=== PATIENT | male | born 1950 | race Caucasian/White ===

== ENCOUNTER 2019-12-18 13:54 | Emergency (ER) | payer MEDICARE ==
--- OUTSIDE RECORDS SUMMARY | 2019-12-18 13:58 | XMS REPORT | Continuity of Care Document ---
:1950 Author Organization [facility] Address [address] [place] [address] Dr. Jimenez [address] [place] [id number] Care Team Providers Name Role Phone Unavailable Unavailable Unavailable Problems This patient has no known problems. Allergies, Adverse Reactions, Alerts This patient has no known allergies or adverse reactions. Medications This patient has no known medications. Procedures This patient has no known procedures. Encounters Start End Encounter Admission Attending Care Care Encounter Source Date/Time Date/Time Type Type Clinicians Facility Department ID 2019-10-20 2019-10-20 Outpatient [facility] [id number] [facility] 08:45:00 08:45:00 2019-07-07 2019-07-07 Outpatient [facility] [id number] [facility] 10:04:00 10:04:00 2019-05-12 2019-05-12 Outpatient [facility] [id number] [facility] 08:55:00 08:55:00 2019-04-14 2019-04-14 Outpatient MH [facility] [id number] [facility] 08:53:00 08:53:00 2019-03-23 2019-03-23 Outpatient M[facility] [id number] [facility] 14:23:00 14:23:00 2019-03-12 2019-03-12 Outpatient MH MH [id number] [facility] 10:21:00 10:21:00 2019-03-04 2019-03-04 Outpatient [facility] MED [id number] MHH 06:51:00 06:51:00 2019-03-03 2019-03-03 Outpatient M[facility] [id number] [facility] 09:35:00 09:35:00 2019-01-29 2019-01-29 Outpatient MHH [facility] [id number] [facility] 12:00:00 12:00:00 2019-01-20 2019-01-20 Outpatient [facility] M[facility] [id number] MH 13:36:00 13:36:00 2018-12-26 2018-12-26 Outpatient [facility] [id number] 11:20:00 11:20:00 2018-12-04 2018-12-04 Outpatient [facility] [id number] [facility] 15:57:00 15:57:00 Results This patient has no known results.
--- NOTE | 2019-12-18 14:40 | RAD REPORT ---
EXAM DESCRIPTION: CT - Head Brain Wo Cont - 12/18/2019 2:26 pm CLINICAL HISTORY: TRAUMA Syncope, fall, trauma, head injury COMPARISON: No comparisons TECHNIQUE: All CT scans are performed using dose optimization technique as appropriate and may inclu de automated exposure control or mA/KV adjustment according to patient size. FINDINGS: No intracranial hemorrhage, hydrocephalus or extra-axial fluid collection.Advanced general ized brain atrophy is present with advanced periventricular and deep white matter chronic microvascul ar ischemic changes.No areas of brain edema or evidence of midline shift. The paranasal sinuses and mastoids are clear. The calvarium is intact. IMPRESSION: No acute intracranial abnormality.
[2019-12-18 15:15] LABS: ALT/SGPT 19 U/L (12-78); AST/SGOT 28 U/L (15-37); Albumin 2.9 g/dL (3.4-5.0); Alkaline Phosphatase 146 U/L (45-117); BUN Blood Urea Nitrogen 21 mg/dL (7-18); Bicarbonate 22 mmol/L (21-32); Bilirubin Direct 0.3 mg/dL (0-0.2); Bilirubin Total 0.7 mg/dL (0.2-1.0); CKMB Creatine Kinase MB 1.9 ng/mL (0.3-3.6); Creatine Phosphokinase 41 U/L (39-308); Glucose Level 119 mg/dL (74-106); Lipase 103 U/L (73-393); Magnesium 2.2 mg/dL (1.8-2.4); Potassium 4.4 mmol/L (3.5-5.1); Protein, Total 6.7 g/dL (6.4-8.2); Sodium Level 144 mmol/L (136-145); Troponin (Emerg Dept Use Only) < 0.02 ng/mL (0.0-0.045)
--- NOTE | 2019-12-18 15:32 | ER ---
Nurse's Notes [facility] Name: Reji Ford Jr Age: 69 yrs Sex: Male : 1950 Arrival Date: 12/18/2019 Time: 13:56 Bed 4 Private MD: Diagnosis: Fall on same level from slipping, tripping and stumbling Presentation: 12/17 13:58 Chief complaint: EMS states: WITNESSED SYNCOPAL FALL. Coronavirus screen: At this time, bp the client does not indicate any symptoms associated with coronavirus-19. Ebola Screen: No symptoms or risks identified at this time. Initial Sepsis Screen: Does the patient meet any 2 criteria? No. Patient's initial sepsis screen is negative. Does the patient have a suspected source of infection? No. Patient's initial sepsis screen is negative. Risk Assessment: Do you want to hurt yourself or someone else? Patient reports no desire to harm self or others. Onset of symptoms is unknown. Care prior to arrival: Glucose check: 166. 13:58 Method Of Arrival: EMS: [facility] bp 13:58 Acuity: CHEMA 3 bp Triage Assessment: 13:57 General: Appears distressed, comfortable, obese, unkempt, Behavior is cooperative, bp appropriate for age, drowsy. Pain: Denies pain. EENT: No deficits noted. Neuro: Level of Consciousness is awake, alert, obeys commands, lethargic, Oriented to person, place, time, situation, Appropriate for age Reports blurred vision CHRONIC a syncopal episode. Cardiovascular: Rhythm is sinus rhythm. Respiratory: No deficits noted. GI: No signs and/or symptoms were reported involving the gastrointestinal system. : No signs and/or symptoms were reported regarding the genitourinary system. Derm: No deficits noted. Musculoskeletal: No deficits noted. Historical: - Allergies: 13:57 crab meat; bp - Home Meds: 13:57 Furosemide Oral [Active]; Metoprolol Tartrate Oral [Active]; Spironolactone Oral bp [Active]; - PMHx: 13:57 Hepatitis; Hypertension; under eval for CHF; bp - Immunization history:: Adult Immunizations unknown. - Social history:: Smoking status: Patient reports the use of cigarette tobacco products, unknown amount. Screenin:01 Abuse screen: Denies threats or abuse. Denies injuries from another. Nutritional bp screening: No deficits noted. Tuberculosis screening: No symptoms or risk factors identified. Fall Risk None identified. Assessment: 14:01 General: SEE TRIAGE NOTE. Neuro: Level of Consciousness is awake, obeys commands, bp lethargic, Oriented to person, place, time, situation. Cardiovascular: Rhythm is sinus rhythm. 14:50 Reassessment: CT AND LABWORK COMPLETED, RESULTS PENDING. VS STABLE. bp 15:08 Reassessment: PT STATES "I'M NOT GONNA GIVE YOU ANY URINE TO TEST". PROVIDER INFORMED. bp 15:29 Reassessment: PT REFUSING FURTHER HEALTH CARE ACTIVITIES AND REMOVING MONITORING bp DEVICES. PT INSIST ON LEAVING AMA. COUNSELED TO REMAIN BY PROVIDER AND STAFF BUT REFUSED. PT AOx4, AMBULATORY WITH STEADY GAIT AND NO ATAXIA. PT URGED TO RETURN IF S/S RETURN OR WORSEN. Vital Signs: 13:58 BP 127 / 65; Pulse 80; Resp 17; Temp 98.9; Pulse Ox 94% ; bp 14:37 BP 163 / 70; Pulse 58; Resp 16; Pulse Ox 97% ; bp 15:30 BP 112 / 65; Pulse 55; Resp 17; Temp 98.5; Pulse Ox 98% ; bp NIH Stroke Scale Scores: 13:58 NIHSS Score: 2 bp ED Course: 13:56 Patient arrived in ED. bp 13:58 Arm band placed on. bp 14:01 Triage completed. bp 14:01 Patient has correct armband on for positive identification. Bed in low position. Call bp light in reach. Side rails up X2. 14:03 Daria Montano FNP-C is [facility]. kb 14:03 Vin Elliott MD is Attending Physician. kb 14:18 Danilo Pierre, RN is Primary Nurse. em 14:26 CT Head Brain wo Cont In Process Unspecified. EDMS 15:30 No provider procedures requiring assistance completed. Patient did not have IV access bp during this emergency room visit. 15:35 Primary Nurse role handed off by Danilo Pierre, LYLE babb Administered Medications: No medications were administered Outcome: 15:31 AMA AMA form signed bp 15:31 Condition: stable 15:31 Instructed on follow up and referral plans. 15:32 Patient left the ED. bp 15:36 Patient left the ED. holley NIH Stroke Scale - NIH Stroke Score Date: 12/18/2019 Time: 13:58 Total Score = 2 1a. Level of Consciousness (LOC) - 1(Not Alert) 1b. Level of Consciousness (LOC) (Year \\T\\ Age) - 0(Both) 1c. LOC Commands (Open \\T\\ Closes Eyes/Supervisor Grading) - 0(Both) 2. Best Gaze (Lateral Gaze Paresis) - 0(Normal) 3. Visual Field Loss - 0(No visual loss) 4. Facial Palsy - 0(Normal) 5a. Left Arm: Motor (10-second hold) - 0(No drift) 5b. Right Arm: Motor (10-second hold) - 0(No drift) 6a. Left Leg: Motor (5-second hold - always test supine) - 0(No drift) 6b. Right Leg: Motor (5-second hold - always test supine) - 0(No drift) 7. Limb Ataxia (finger/nose \\T\\ heel/madison - test with eyes open) - 0(Absent) 8. Sensory Loss (pinprick arms/legs/face) - 0(Normal) 9. Best Language: Aphasia (description/naming/reading) - 0(No aphasia) 10. Dysarthria (speech clarity - read or repeat words) - 1(Mild to Moderate) 11. Extinction and Inattention (visual/tactile/auditory/spatial/personal) - 0(No abnormality) Initials: bp Signatures: Dispatcher [employer] Daria Banda, SYLVIA-C MACHINIST LINOTYPE-Danilo Gagnon, Herb Brown RN, RN RN bp Corrections: (The following items were deleted from the chart) 14:50 14:37 Pulse 58bpm; Resp 16bpm; Pulse Ox 97%; bp bp
--- NOTE | 2019-12-18 15:37 | EDPHYS ---
Physician Documentation [facility] Name: Reji Ford Jr Age: 69 yrs Sex: Male : 1950 Arrival Date: 12/18/2019 Time: 13:56 Bed 4 Private MD: ED Physician Vin Elliott HPI: 12/17 15:37 This 69 yrs old Male presents to ER via EMS with complaints of Syncope. kb 15:37 Details of fall: The patient fell from an upright position, while walking. Onset: The kb symptoms/episode began/occurred just prior to arrival. Associated injuries: The patient sustained no obvious injury. Severity of symptoms: At their worst the symptoms were mild, in the emergency department the symptoms are unchanged. The patient has not experienced similar symptoms in the past. The patient has not recently seen a physician. Pt states he was walking from the car into the eye dr's office, lost his balance and fell. States he is fine and really doesn't need to be here. I called [employer] and the staff confirms that pt "stumbled out of his car, walked to the door and fell against it, then to the ground." Staff believes pt had LOC for 30-45 seconds "during" the fall. States he was awake when he hit the ground. Pt denies LOC. Pt admits to taking oxycontin today, refuses UDS. . Historical: - Allergies: 13:57 crab meat; bp - Home Meds: 13:57 Furosemide Oral [Active]; Metoprolol Tartrate Oral [Active]; Spironolactone Oral bp [Active]; - PMHx: 13:57 Hepatitis; Hypertension; under eval for CHF; bp - Immunization history:: Adult Immunizations unknown. - Social history:: Smoking status: Patient reports the use of cigarette tobacco products, unknown amount. ROS: 15:33 Constitutional: Negative for fever, chills, and weight loss, Eyes: Negative for injury, kb pain, redness, and discharge, ENT: Negative for injury, pain, and discharge, Neck: Negative for injury, pain, and swelling, Cardiovascular: Negative for chest pain, palpitations, and edema, Respiratory: Negative for shortness of breath, cough, wheezing, and pleuritic chest pain, Abdomen/GI: Negative for abdominal pain, nausea, vomiting, diarrhea, and constipation, Back: Negative for injury and pain, MS/Extremity: Negative for injury and deformity, Skin: Negative for injury, rash, and discoloration, Neuro: Negative for headache, weakness, numbness, tingling, and seizure. Exam: 15:33 Constitutional: This is a well developed, well nourished patient who is awake, alert, kb and in no acute distress. Head/Face: Normocephalic, atraumatic. Chest/axilla: Normal chest wall appearance and motion. Nontender with no deformity. No lesions are appreciated. Cardiovascular: Regular rate and rhythm with a normal S1 and S2. No gallops, murmurs, or rubs. Normal PMI, no JVD. No pulse deficits. Respiratory: Lungs have equal breath sounds bilaterally, clear to auscultation and percussion. No rales, rhonchi or wheezes noted. No increased work of breathing, no retractions or nasal flaring. Abdomen/GI: Soft, non-tender, with normal bowel sounds. No distension or tympany. No guarding or rebound. No evidence of tenderness throughout. Skin: Warm, dry with normal turgor. Normal color with no rashes, no lesions, and no evidence of cellulitis. MS/ Extremity: Pulses equal, no cyanosis. Neurovascular intact. Full, normal range of motion. Neuro: Awake and alert, GCS 15, oriented to person, place, time, and situation. Cranial nerves II-XII grossly intact. Motor strength 5/5 in all extremities. Sensory grossly intact. Cerebellar exam normal. Normal gait. Vital Signs: 13:58 BP 127 / 65; Pulse 80; Resp 17; Temp 98.9; Pulse Ox 94% ; bp 14:37 BP 163 / 70; Pulse 58; Resp 16; Pulse Ox 97% ; bp 15:30 BP 112 / 65; Pulse 55; Resp 17; Temp 98.5; Pulse Ox 98% ; bp NIH Stroke Scale Scores: 13:58 NIHSS Score: 2 bp MDM: 14:03 Patient medically screened. kb 15:33 Data reviewed: vital signs, nurses notes. Data interpreted: Pulse oximetry: on room air kb is 98 %. Interpretation: normal. ED course: Pt refused recollection of blood. States he wanted to leave. Took equipment off himself and got dressed to leave. Pt refuses any more testing and is going home. Pt signed AMA form. Pt ambulatory with steady gait, alert and oriented x4. 12/17 14:15 Order name: Basic Metabolic Panel; Complete Time: 15:16 kb 12/17 14:15 Order name: Ckmb; Complete Time: 15:16 kb 12/17 14:15 Order name: CPK; Complete Time: 15:16 kb 12/17 14:15 Order name: Hepatic Function; Complete Time: 15:16 kb 12/17 14:15 Order name: Lipase; Complete Time: 15:16 kb 12/17 14:12 Order name: CT Head Brain wo Cont; Complete Time: 14:46 kb 12/17 14:15 Order name: Magnesium; Complete Time: 15:16 kb 12/17 14:15 Order name: Troponin (emerg Dept Use Only); Complete Time: 15:16 kb 12/17 14:15 Order name: EKG; Complete Time: 14:16 kb 12/17 14:46 Order name: ETOH Level; Complete Time: 15:33 bp 12/17 14:15 Order name: Cardiac monitoring; Complete Time: 14:18 kb 12/17 14:15 Order name: EKG - Nurse/Tech; Complete Time: 14:18 kb 12/17 14:15 Order name: IV Saline Lock; Complete Time: 14:46 kb 12/17 14:15 Order name: Labs collected and sent; Complete Time: 14:18 kb 12/17 14:15 Order name: NPO; Complete Time: 14:18 kb 12/17 14:15 Order name: O2 Per Protocol; Complete Time: 14:18 kb 12/17 14:15 Order name: O2 Sat Monitoring; Complete Time: 14:18 kb Administered Medications: No medications were administered Disposition: 12/18/19 15:32 Patient has left against medical advice. Impression: Fall on same level from slipping, tripping and stumbling. - Patients states they are going to Home. - Condition is Stable. Follow up: Emergency Department; When: As needed; Reason: Worsening of condition. Follow up: Private Physician; When: 2 - 3 days; Reason: Recheck today's complaints, Continuance of care, Re-evaluation by your physician. - Problem is new. - Symptoms are unchanged. NIH Stroke Scale - NIH Stroke Score Date: 12/18/2019 Time: 13:58 Total Score = 2 1a. Level of Consciousness (LOC) - 1(Not Alert) 1b. Level of Consciousness (LOC) (Year \\T\\ Age) - 0(Both) 1c. LOC Commands (Open \\T\\ Closes Eyes/Circular Head Saw Operator) - 0(Both) 2. Best Gaze (Lateral Gaze Paresis) - 0(Normal) 3. Visual Field Loss - 0(No visual loss) 4. Facial Palsy - 0(Normal) 5a. Left Arm: Motor (10-second hold) - 0(No drift) 5b. Right Arm: Motor (10-second hold) - 0(No drift) 6a. Left Leg: Motor (5-second hold - always test supine) - 0(No drift) 6b. Right Leg: Motor (5-second hold - always test supine) - 0(No drift) 7. Limb Ataxia (finger/nose \\T\\ heel/madison - test with eyes open) - 0(Absent) 8. Sensory Loss (pinprick arms/legs/face) - 0(Normal) 9. Best Language: Aphasia (description/naming/reading) - 0(No aphasia) 10. Dysarthria (speech clarity - read or repeat words) - 1(Mild to Moderate) 11. Extinction and Inattention (visual/tactile/auditory/spatial/personal) - 0(No abnormality) Initials: bp Addendum: 12/21/2019 08:22 Co-signature as Attending Physician, Vin Elliott MD I agree with the kdr assessment and plan of care. Signatures: Dispatcher [employer] EDIA Daria Montano, SEARCH MANAGER-C SEARCH MANAGER-Ckb Vin Elliott MD MD [facility] Herb Ramirez RN RN bp Corrections: (The following items were deleted from the chart) 12/17 15:36 15:32 12/18/2019 15:32 Patients has left against medical advice. Patient states kb they are going to Home. Condition is Stable. bp 15:36 15:36 12/18/2019 15:32 Patients has left against medical advice. Impression: kb Fall on same level from slipping, tripping and stumbling. Patient states they are going to Home. Condition is Stable. Follow up: Emergency Department; When: As needed; Reason: Worsening of condition. Follow up: Private Physician; When: 2 - 3 days; Reason: Recheck today's complaints, Continuance of care, Re-evaluation by your physician. Problem is new. Symptoms are unchanged. kb
[2019-12-18 15:52] VITALS: BP 112/65; TEMP 98.5; O2SAT 98
--- NOTE | 2019-12-19 08:11 | EKG ---
Test Date: 2019-12-18 Test Time: 14:05:15 It Assistant: SRI MEASUREMENT RESULTS: Intervals: Rate: 56 SD: 170 QRSD: 80 QT: 470 QTc: 453 [place]: P: 32 SD: 170 QRS: 10 T: 45 INTERPRETIVE STATEMENTS: Sinus bradycardia Otherwise normal ECG Compared to ECG 05/05/2008 08:33:23 Sinus rhythm no longer present Electronically Signed On 12-19-19 08:09:28 CDT by Eleno Jimenez
== END 2019-12-18 15:36 | disposition left against medical advice (07) ==
LOC: ER 13:54
DX: R55 Syncope and collapse (principal); W01.0XXA Fall on same level from slipping, tripping and stumbling without subsequent striking against object, initial encounter; Y93.9 Activity, unspecified; Y92.9 Unspecified place or not applicable; I10 Essential (primary) hypertension; F17.210 Nicotine dependence, cigarettes, uncomplicated; Z91.018 Allergy to other foods; Z53.29 Procedure and treatment not carried out because of patient's decision for other reasons; R29.702 NIHSS score 2
CPT/HCPCS: 70450; 80048; 80076; 80320; 82550; 82553; 83690; 83735; 84484; 93005; 99284

== ENCOUNTER 2020-12-22 01:08 | Emergency (ER) | payer MEDICARE ==
--- NOTE | 2020-12-22 01:30 | EDPHYS ---
Physician Documentation [facility] Name: Reji Ford Jr Age: 70 yrs Sex: Male : 1950 Arrival Date: 12/22/2020 Time: 01:13 Bed DIS11 Private MD: ED Physician Marilia Pink HPI: 12/22 01:26 This 70 yrs old Male presents to ER via EMS with complaints of alcohol sp3 intoxication. 01:26 10-year-old male with a history of hypertension CHF presents with acute alcohol sp3 intoxication from a local restaurant after drinking "saki". Patient then got into a verbal altercation and attempted to get into his vehicle at which point the police intervened and he was then sent to the ED for further evaluation secondary to his inability to walk presumably secondary to alcohol. Patient states that the police took his cane. Patient has no complaints including headache, neck pain, chest pain, back pain, shortness of breath, abdominal pain, nausea, vomiting, diarrhea, syncope, focal neuro deficit, or any other ROS at this time. Per EMS patient also was slightly hypertensive on scene which also led to his arrival here.. Historical: - Allergies: 01:46 crab meat; em - PMHx: 01:46 Hypertension; under eval for CHF; Hepatitis; cancer; Diabetes mellitus; em - PSHx: 01:46 None; em - Immunization history:: Client reports receiving the 2nd dose of the Covid vaccine. - Social history:: Smoking status: Patient reports the use of cigarette tobacco products, cigars. ROS: 01:28 Constitutional: Negative for fever, chills, and weight loss, Eyes: Negative for injury, sp3 pain, redness, and discharge, Cardiovascular: Negative for chest pain, palpitations, and edema, Respiratory: Negative for shortness of breath, cough, wheezing, and pleuritic chest pain, Abdomen/GI: Negative for abdominal pain, nausea, vomiting, diarrhea, and constipation, MS/Extremity: Negative for injury and deformity, Skin: Negative for injury, rash, and discoloration, Neuro: Negative for headache, weakness, numbness, tingling, and seizure. Exam: 01:28 Constitutional: This is a well developed, well nourished patient who is awake, alert, sp3 and in no acute distress. Head/Face: Normocephalic, atraumatic. Chest/axilla: Normal chest wall appearance and motion. Nontender with no deformity. No lesions are appreciated. Cardiovascular: Regular rate and rhythm with a normal S1 and S2. No gallops, murmurs, or rubs. Normal PMI, no JVD. No pulse deficits. Respiratory: Lungs have equal breath sounds bilaterally, clear to auscultation and percussion. No rales, rhonchi or wheezes noted. No increased work of breathing, no retractions or nasal flaring. Abdomen/GI: Soft, non-tender, with normal bowel sounds. No distension or tympany. No guarding or rebound. No evidence of tenderness throughout. Back: No spinal tenderness. No costovertebral tenderness. Full range of motion. Skin: Warm, dry with normal turgor. Normal color with no rashes, no lesions, and no evidence of cellulitis. 01:28 Constitutional: The patient appears in no acute distress, awake, smells of alcohol. 01:28 Special observations: no evidence of discomfort, Patient with mild alcohol intoxication. Patient is ambulatory without assistance. He is relaxing in no acute distress on his mobile device.. Vital Signs: 01:40 BP 156 / 74; Pulse 71; Resp 16; Temp 97.8; Pulse Ox 96% on R/A; Weight 110.22 kg; em Height 6 ft. 0 in. (182.88 cm); 01:40 Body Mass Index 32.96 (110.22 kg, 182.88 cm) em MDM: 01:16 Patient medically screened. sp3 01:29 Data reviewed: vital signs, nurses notes, EMS record. ED course: Patient has mild sp3 alcohol intoxication and does not require further work-up. Vital signs reviewed and patient will be discharged to [facility] or transportation. Patient will not be driving home or operating heavy machinery.. Administered Medications: No medications were administered Disposition Summary: 12/22/20 01:30 Discharge Ordered Location: Home sp3 Condition: Stable sp3 Diagnosis - Alcohol use, unspecified with intoxication sp3 Followup: sp3 - With: Private Physician - When: - Reason: Re-evaluation by your physician Discharge Instructions: - Discharge Summary Sheet sp3 - Alcohol Intoxication sp3 Forms: - Medication Reconciliation Form sp3 - Thank You Letter sp3 - Antibiotic Education sp3 - Prescription Opioid Use sp3 Signatures: Danilo Pierre, RN RN Marilia Nuñez sp3
--- OUTSIDE RECORDS SUMMARY | 2020-12-22 01:32 | XMS REPORT | Continuity of Care Document ---
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 Lanse 00 10 ML No Notes: Memoria Epinephrine 5-06 Luer lock l 0.1 MG/ML 16:34: syringe Christel nn Prefilled 00 Syringe Zero Time Yes Day of Tx, Me moria Placeholder -09/08/20 l 16:34: 11:34:00 Lanse 00 CDT, 09/08/20 11:34:00 CDT, 09/08/20 11:34:00 CDT, Days 1, -1 nivolumab No Notes: Memori a - (Same as: l 16:34: Opdivo) Lanse 00 Non-formul edwin Sodium No 250 mL, Memoria Chloride 09-08 Rate: 25 l 0.9% IV 250 16:34: ml/hr, Herm ondina mL 00 Infuse over: 10 hr, Route: INJ, Dosing Weight 116.773 kg, Total Volume: 250, Priority: Routine, Start date: 09/08/20 11:34:00 CDT, Stop date: 09/09/20 11:33:00 CDT, Days 1, 2.46, m2, 0 isosorbide Yes 60 mg = 1 Me moria mononitrate 5-06 tab, PO, l 60 mg oral 16:01: QAM, # 90 He rmann tablet, 00 tab, 0 extended Refill(s), release Pharmacy: [facility], 182.8, cm, 09/08/20 10:33:00 CDT, Height, 118.2, kg, 09/08/20 10:33:00 CDT, Weight Oxycodone Yes 5 mg = 1 Zafar joe Hydrochlori 5-06 tab, PO, l de 5 MG 15:55: Q6H, PRN Jairo n Oral Tablet 00 Pain, # 30 tab, 0 Refill(s), Pharmacy: [facility], 182.8, cm, 09/08/20 10:33:00 CDT, Height, 118.2, kg, 09/08/20 10:33:00 CDT, Weight Ascorbic Yes See Memoria Acid 4.7 4-29 Instructio l MG/ML / 18:48: ns, Take Jairo n POLYETHYLEN 00 as E GLYCOL directed 3350 100 by MG/ML / physician. Potassium , # 1 ea, Chloride 0 0.0136 Refill(s), MEQ/ML / Pharmacy: Sodium [facility] 5.9 MG/ML / [facility], Chloride 182.88, 0.046 cm, MEQ/ML / 09/01/20 sodium 12:28:00 sulfate 7.5 CDT, MG/ML Oral Height, Solution 119.545, [MoviPrep] kg, 09/01/20 12:28:00 CDT, Weight magnesium Yes 400 mg = 1 Me moria oxide 400 4-08 tab, PO, l mg oral 16:40: BID-Meals, Herm ondina tablet 00 X 30 day, # 60 tab, 6 Refill(s), Pharmacy: [facility] [place], 176, cm, 08/11/20 11:23:00 CDT, Height, 117.2, kg, 08/11/20 11:23:00 CDT, Weight Acetaminoph Yes 1 tab, PO, Memoria en 325 MG / 4-08 Q6H, PRN l Hydrocodone 16:38: Pain, # 60 Lanse Bitartrate 00 tab, 0 10 MG Oral Refill(s), Tablet Pharmacy: [facility] [place], 176, cm, 08/11/20 11:23:00 CDT, Height, 117.2, kg, 08/11/20 11:23:00 CDT, Weight nivolumab No Notes: Memori a 4-08 (Same as: l 12:00: Opdivo) Melvin Non-formul edwin nivolumab No Notes: Memori a 3-11 (Same as: l 13:00: Opdivo) Melvin 00 Non-formul edwin nivolumab No Notes: Memori a 3-04 (Same as: l 13:00: Opdivo) Lanse Non-formul edwin nivolumab Yes Notes: Memori a 480 mg + 2-23 (Same as: l Overfill 13:00: Opdivo) Jairo n Diluent 00 Non-formul Estimated edwin 10 mL + Sodium Chloride 0.9% IV 100 mL nivolumab No Notes: Memori a 480 mg + 1-26 (Same as: l Overfill 13:00: Opdivo) Jairo n Diluent 00 Non-formul Estimated edwin 10 mL + Sodium Chloride 0.9% IV 100 mL nivolumab Yes Notes: Memori a 480 mg + 1-19 (Same as: l Overfill 13:00: Opdivo) Jairo n Diluent 00 Non-formul Estimated edwin 10 mL + Sodium Chloride 0.9% IV 100 mL Imdur 60 mg 2019-05 Yes 60 mg = 1 M emoria oral 2-11 tab, PO, l tablet, 22:39: QAM, do Melvin extended 00 not crush release or chew, # 90 tab, 1 Refill(s), Pharmacy: [facility], 182, cm, 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, Height, 109.7, kg, 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, Weight Lactulose 2019-05 Yes 10 gm = 15 Me moria 667 MG/ML 2-03 mL, PO, l Oral 18:32: Daily, X Lanse Solution 00 30 day, # 450 mL, 6 Refill(s), Pharmacy: [facility] [place], 182, cm, 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 release losartan 2019-05 Yes 100 mg = 1 Mem oria 100 mg oral 1-05 tab, PO, l tablet 19:32: Daily, # Lanse 00 90 tab, 3 Refill(s), Pharmacy: [facility], 182, cm, 02/11/20 14:16:00 CDT, Height, 109.8, kg, 02/11/20 14:16:00 CDT, Weight propranolol 2019-05 Yes 10 mg = 1 M emoria 10 mg oral 1-05 tab, PO, l tablet 19:30: BID, # 180 Christel nn 00 tab, 3 Refill(s), Pharmacy: [facility] [place], 182, cm, 02/11/20 14:16:00 CDT, Height, 109.8, kg, 02/11/20 14:16:00 CDT, Weight magnesium 2019-05 Yes 400 mg = 1 Me moria oxide 400 1-05 tab, PO, l mg oral 19:29: BID-Meals, Herm ondina tablet 00 X 30 day, # 60 tab, 6 Refill(s), Pharmacy: [facility] [place], 182, cm, 02/11/20 14:16:00 CDT, Height, 109.8, kg, 02/11/20 14:16:00 CDT, Weight nivolumab 2019-05 No Notes: Memori a 480 mg + 1-05 (Same as: l Overfill 13:00: Opdivo) Jairo n Diluent 00 Non-formul Estimated edwin 10 mL + Sodium Chloride 0.9% IV 100 mL cloNIDine 2019-05 No Notes: Memori a 0.1 mg oral 0-08 (Same As: l tablet 19:35: Catapres) Jairo n 00 nivolumab 2019-05 No Notes: Memori a 480 mg + 0-08 (Same as: l Overfill 12:00: Opdivo) Jairo n Diluent 00 Non-formul Estimated edwin 10 mL + Sodium Chloride 0.9% IV 100 mL oxyCODONE 5 2019- Yes 5 mg = 1 Me moria mg oral 9-10 cap, PO, l capsule, 16:45: Q6H, PRN Christel nn immediate 00 Pain, # 60 release cap, 0 Refill(s), Pharmacy: [facility] [place], 182, cm, 01/14/20 10:48:00 CDT, Height, 106.2, kg, 01/14/20 10:48:00 CDT, Weight losartan 25 2020-0 Yes 25 mg = 1 M emoria mg oral 9-10 tab, PO, l tablet 16:43: Daily, # Melvin 00 90 tab, 1 Refill(s), Pharmacy: [facility] [place], 182, cm, 01/14/20 10:48:00 CDT, Height, 106.2, kg, 01/14/20 10:48:00 CDT, Weight nivolumab 2020-0 No Notes: Memori a 480 mg + 9-10 (Same as: l Overfill 12:00: Opdivo) Jairo n Diluent 00 Non-formul Estimated edwin 10 mL + Sodium Chloride 0.9% IV 100 mL temazepam 2019-0 Yes 15 mg = 1 Mem oria 15 mg oral 8-13 cap, PO, l capsule 18:52: Bedtime, Jairo n 00 TAKE ONE (1) CAPSULE(S) BY MOUTH AT BEDTIME NEEDED FOR SLEEP., X 30 day, # 30 cap, 3 Refill(s), Pharmacy: [facility] [place], 182, cm, 11/19/19 13:44:00 CDT, Height, 111.7, kg, 11/19/19 13:44:00 CDT, Weight Imdur 60 mg 2019-0 Yes 60 mg = 1 M emoria oral 8-13 tab, PO, l tablet, 18:51: QAM, # 30 Christel nn extended 00 tab, 3 release Refill(s), Pharmacy: [facility] [place], 182, cm, 11/19/19 13:44:00 CDT, Height, 111.7, kg, 11/19/19 13:44:00 CDT, Weight oxyCODONE 5 2020-0 Yes 5 mg = 1 Me moria mg oral 8-13 cap, PO, l capsule, 18:44: Q6H, PRN Christel nn immediate 00 Pain, # 60 release cap, 0 Refill(s), Pharmacy: [facility] [place], 182, cm, 11/19/19 13:44:00 CDT, Height, 111.7, kg, 11/19/19 13:44:00 CDT, Weight nivolumab 2020-0 No Notes: Memori a 480 mg + 8-13 (Same as: l Overfill 12:00: Opdivo) Jairo n Diluent 00 Non-formul Estimated edwin 10 mL + Sodium Chloride 0.9% IV 100 mL oxyCODONE 5 2020-0 No 5 mg = 1 Me moria mg oral 7-16 cap, PO, l capsule, 18:23: Q6H, PRN Christel nn immediate 00 Pain, # 60 release cap, 0 Refill(s), Pharmacy: [facility] [place], 182.8, cm, 11/19/19 13:06:00 CDT, Height, 111.6, kg, 11/19/19 13:06:00 CDT, Weight propranolol 2020-0 Yes 10 mg = 1 M emoria 10 mg oral 7-16 tab, PO, l tablet 18:22: BID, # 180 Christel nn 00 tab, 1 Refill(s), Pharmacy: [facility] [place], 182.8, cm, 11/19/19 13:06:00 CDT, Height, 111.6, kg, 11/19/19 13:06:00 CDT, Weight nivolumab 2020-0 No Notes: Memori a 480 mg + 7-16 (Same as: l Overfill 17:30: Opdivo) Jairo n Diluent 00 Non-formul Estimated edwin 10 mL + Sodium Chloride 0.9% IV 100 mL nivolumab 2020-0 No Notes: Memori a 480 mg + 7-16 (Same as: l Overfill 13:00: Opdivo) Jairo n Diluent 00 Non-formul Estimated edwin 10 mL + Sodium Chloride 0.9% IV 100 mL Dextrose 5% 2020-0 No 500 mL, Mem oria with 0.45% 6-16 IV, 666.67 l NaCl IV 15:05: ml/hr, Melvin 00 ONCALL, Start date: 10/20/19 10:05:00 CDT, Duration: 1, 500 ml metoprolol 2020-0 Yes 25 mg = 1 Me moria 25 mg oral 6-16 tab, PO, l tablet, 14:26: Daily, # Jairo n extended 00 90 tab, 3 release Refill(s), Pharmacy: [facility] [place], 182.8, cm, 10/20/19 9:08:00 CDT, Height, 107.9, kg, 10/20/19 9:08:00 CDT, Weight oxyCODONE 5 2020-0 No 5 mg = 1 Me moria mg oral 6-16 cap, PO, l capsule, 14:25: Q6H, PRN Christel nn immediate 00 Pain, # 60 release cap, 0 Refill(s), Pharmacy: [facility] [place], 182.8, cm, 10/20/19 9:08:00 CDT, Height, 107.9, kg, 10/20/19 9:08:00 CDT, Weight nivolumab No Notes: Memori a 480 mg + 6-16 (Same as: l Overfill 12:00: Opdivo) Jairo n Diluent 00 Non-formul Estimated edwin 10 mL + Sodium Chloride 0.9% IV 100 mL temazepam 2019-0 Yes 15 mg = 1 Mem oria 15 mg oral 5-19 cap, PO, l capsule 15:15: Bedtime, Jairo n 00 PRN Sleep, X 30 day, # 30 cap, 1 Refill(s), Pharmacy: [facility] [place] oxyCODONE 5 2019-0 Yes 5 mg = 1 Me moria mg oral 5-19 cap, PO, l capsule, 15:15: Q6H, PRN Christel nn immediate 00 Pain, # 60 release cap, 0 Refill(s), Pharmacy: [facility] [place] nivolumab No Notes: Memori a 480 mg + 5-19 (Same as: l Overfill 12:00: Opdivo) Jairo n Diluent 00 Non-formul Estimated edwin 10 mL + Sodium Chloride 0.9% IV 100 mL Mag-Ox 400 No Notes: Memor ia 4-21 (Same as: l 15:10: Mag-Ox Melvin 00 400) Magnesium oxide 633br=705o g elemental magnesium Dose=____m g magnesium oxide (___mg elemental magnesium) nivolumab No Notes: Memori a 480 mg + 4-21 (Same as: l Overfill 12:00: Opdivo) Jairo n Diluent 00 Non-formul Estimated edwin 10 mL + Sodium Chloride 0.9% IV 100 mL Oxycodone 2019-0 No 5 mg = 1 Zafar joe Hydrochlori 4-14 tab, PO, l de 5 MG 19:59: Q6H, PRN Jairo n Oral Tablet 00 Pain, # 60 tab, 0 Refill(s), Pharmacy: [facility] [place] nivolumab Yes Notes: Memori a 480 mg + 4-14 (Same as: l Overfill 12:00: Opdivo) Jairo n Diluent 00 Non-formul Estimated edwin 10 mL + Sodium Chloride 0.9% IV 100 mL losartan 50 0 Yes 50 mg = 1 M emoria mg oral 3-31 tab, PO, l tablet 17:49: Daily, # Lanse 00 90 tab, 1 Refill(s), Pharmacy: [facility] [place] metoprolol Yes 50 mg = 1 Me moria 50 mg oral 3-31 tab, PO, l tablet, 17:47: Daily, # Jairo n extended 00 90 tab, 3 release Refill(s), Pharmacy: [facility] [place] Lactulose Yes 10 gm = 15 Me moria 667 MG/ML 3-31 mL, PO, l Oral 17:44: Daily, X Lanse Solution 00 90 day, # 1350 mL, 3 Refill(s), Pharmacy: [facility] [place] nivolumab No Notes: Memori a 240 mg + 3-31 (Same as: l Overfill 12:00: Opdivo) Jairo n Diluent 00 Non-formul Estimated edwin 10 mL + Sodium Chloride 0.9% IV 100 mL losartan 50 No 50 mg = 1 M emoria mg oral 3-17 tab, PO, l tablet 15:49: Daily, # Melvin 00 90 tab, 1 Refill(s), Pharmacy: [facility] [place], changed to 50mg po daily on 07/21/19 Oxycodone Yes 5 mg = 1 Zafar joe Hydrochlori 3-17 tab, PO, l de 5 MG 15:38: Q6H, PRN Jairo n Oral Tablet 00 Pain, # 60 tab, 0 Refill(s), Pharmacy: [facility] [place] Tramadol Yes 50 mg, PO, Mem oria 3-17 Q4-6H, PRN l 14:58: Pain, # 20 Lanse 00 tab, 0 Refill(s) nivolumab No Notes: Memori a 240 mg + 3-17 (Same as: l Overfill 12:00: Opdivo) Jairo n Diluent 00 Non-formul Estimated edwin 10 mL + Sodium Chloride 0.9% IV 100 mL insulin 0 No Notes: Memoria regular 100 3-03 (Same as: l units/mL 18:05: Humulin R) Her whitfield human 00 Roll in recombinant palms of hands gently; Do not shake vigorously . WASTE: F/P - Black; E - Municipal Trash Bin Stable for 31 days at room temperatur e Expires in days from ____Date nivolumab No Notes: Memori a 240 mg + 3-03 (Same as: l Overfill 14:00: Opdivo) Jairo n Diluent 00 Non-formul Estimated edwin 10 mL + Sodium Chloride 0.9% IV 100 mL Oxycodone Yes 5 mg = 1 Zafar joe Hydrochlori 2-18 tab, PO, l de 5 MG 16:56: Q6H, PRN Jairo n Oral Tablet 00 Pain, # 60 tab, 0 Refill(s), given to patient Lactulose Yes 10 gm = 15 Me moria 667 MG/ML 2-18 mL, PO, l Oral 16:55: Daily, X Melvin Solution 00 30 day, # 450 mL, 3 Refill(s), Pharmacy: [facility] [place] nivolumab No Notes: Memori a 240 mg + 2-18 (Same as: l Overfill 14:00: Opdivo) Jairo n Diluent 00 Non-formul Estimated edwin 10 mL + Sodium Chloride 0.9% IV 100 mL nivolumab 0 No Notes: Memori a 240 mg + 2-18 (Same as: l Overfill 13:00: Opdivo) Jairo n Diluent 00 Non-formul Estimated edwin 10 mL + Sodium Chloride 0.9% IV 100 mL nivolumab 0 No Notes: Memori a 240 mg + 2-11 (Same as: l Overfill 13:00: Opdivo) Jairo n Diluent 00 Non-formul Estimated edwin 10 mL + Sodium Chloride 0.9% IV 100 mL insulin 0 No Notes: Memoria regular 100 2-04 (Same as: l units/mL 16:00: Humulin R) Her whitfield human 00 Roll in recombinant palms of hands gently; Do not shake vigorously . WASTE: F/P - Black; E - Municipal Trash Bin Stable for 31 days at room temperatur e Expires in days from ____Date Oxycodone Yes 5 mg = 1 Zafar joe Hydrochlori 2-04 tab, PO, l de 5 MG 15:26: Q6H, PRN Jairo n Oral Tablet 00 Pain, # 60 tab, 0 Refill(s), given to patient nivolumab No Notes: Memori a 240 mg + 2-04 (Same as: l Overfill 13:00: Opdivo) Jairo n Diluent 00 Non-formul Estimated edwin 10 mL + Sodium Chloride 0.9% IV 100 mL insulin No Notes: Memoria regular 100 1-21 (Same as: l units/mL 19:44: Humulin R) Her whitfield human 00 Roll in recombinant palms of hands gently; Do not shake vigorously . WASTE: F/P - Black; E - Municipal Trash Bin Stable for 31 days at room temperatur e Expires in days from ____Date insulin No Notes: Memoria regular 100 1-21 (Same as: l units/mL 19:00: Humulin R) Her whitfield human 00 Roll in recombinant palms of hands gently; Do not shake vigorously . WASTE: F/P - Black; E - Municipal Trash Bin Stable for 31 days at room temperatur e Expires in days from ____Date temazepam Yes 7.5 mg = 1 Me moria 7.5 mg oral 1-21 cap, PO, l capsule 17:33: Bedtime, Jairo n 00 PRN Sleep, # 30 cap, 1 Refill(s), given to patient nivolumab No Notes: Memori a 240 mg + 1-21 (Same as: l Overfill 13:00: Opdivo) Jairo n Diluent 00 Non-formul Estimated edwin 10 mL + Sodium Chloride 0.9% IV 100 mL Azithromyci No See Memori a n 5 Day 1-07 Instructio l Dose Pack 16:17: ns, Take 2 He rmann 250 mg oral 00 tablets by tablet mouth the first day then 1 tablet by mouth days 2-5., X 5 day, # 6 tab, 0 Refill(s), Pharmacy: [facility] [place] nivolumab No Notes: Memori a 240 mg + 1-07 (Same as: l Overfill 13:00: Opdivo) Jairo n Diluent 00 Non-formul Estimated edwin 10 mL + Sodium Chloride 0.9% IV 100 mL nivolumab 2018-05 No Notes: Memori a 240 mg + 2-24 (Same as: l Overfill 13:00: Opdivo) Jairo n Diluent 00 Non-formul Estimated edwin 10 mL + Sodium Chloride 0.9% IV 100 mL amLODIPine 2018-05 Yes 10 mg = 1 Me moria 10 mg oral 2-10 tab, PO, l tablet 16:30: Daily, # Lanse 00 90 tab, 1 Refill(s), Pharmacy: [facility] [place], cancel isosorbide mononitrat e 120mg po daily (will cont 60mg po daily) nivolumab 2018-05 No Notes: Memori a 240 mg + 2-10 (Same as: l Overfill 13:00: Opdivo) Jairo n Diluent 00 Non-formul Estimated edwin 10 mL + Sodium Chloride 0.9% IV 100 mL isosorbide 2018-05 Yes 120 mg = 1 M emoria mononitrate 1-26 tab, PO, l 120 mg oral 14:59: QAM, # 90 H ermann tablet, 00 tab, 3 extended Refill(s), release Pharmacy: [facility] [place], changed dose to 120mg on 03/31/19 nivolumab 2018-05 No Notes: Memori a 240 mg + 1-26 (Same as: l Overfill 13:00: Opdivo) Jairo n Diluent 00 Non-formul Estimated edwin 10 mL + Sodium Chloride 0.9% IV 100 mL nivolumab 2018-05 No Notes: Memori a 240 mg + 1-12 (Same as: l Overfill 13:00: Opdivo) Jairo n Diluent 00 Non-formul Estimated edwin 10 mL + Sodium Chloride 0.9% IV 100 mL clindamycin 2018-05 Yes 300 mg = 1 Memoria 300 mg oral 1-07 cap, PO, l capsule 17:31: Q8H, X 10 Christel nn 00 day, # 30 cap, 0 Refill(s), Pharmacy: [facility] [place] Furosemide 2018-05 Yes 40 mg = 1 Me moria 40 MG Oral 0-30 tab, PO, l Tablet 19:00: BID, # 90 Jairo n [Lasix] 00 tab, 3 Refill(s), Pharmacy: [facility] [place] potassium 2018-05 Yes 10 mEq = 1 Me moria chloride 10 0-30 tab, PO, l mEq oral 19:00: Daily, # Christel nn tablet, 00 90 tab, 3 extended Refill(s), release Pharmacy: [facility] [place] cloNIDine 2018-05 No Notes: Memori a 0.1 mg oral 0-29 (Same As: l tablet 18:00: Catapres) Jairo n 00 nivolumab 2018-05 No Notes: Memori a 240 mg + 0-29 (Same as: l Overfill 16:00: Opdivo) Jairo n Diluent 00 Non-formul Estimated ediwn 10 mL + Sodium Chloride 0.9% IV 100 mL Ondansetron 2018-05 Yes 8 mg = 1 Me moria 8 MG Oral 0-29 tab, PO, l Tablet 15:20: TID, PRN Lanse 54 Nausea & Vomiting, # 90 tab, 3 Refill(s), Pharmacy: [facility] [place] Oxycontin 2018-05 Yes 5 mg, PO, Mem oria 0-29 Q12H, PRN l 14:57: Pain Score Lanse 00 4-6, 0 Refill(s) nivolumab 2018-05 Yes Notes: Memori a 240 mg + 0-10 (Same as: l Overfill 12:00: Opdivo) Jairo n Diluent 00 Non-formul Estimated edwin 10 mL + Sodium Chloride 0.9% IV 100 mL Imdur 60 mg Yes 60 mg = 1 M emoria oral 9-13 tab, PO, l tablet, 19:35: QAM, # 30 Christel nn extended 00 tab, 1 release Refill(s), Pharmacy: [facility] [place] losartan 2018- Yes 100 mg = 1 Mem oria 100 mg oral 9-13 tab, PO, l tablet 18:10: Daily, # Lanse 00 90 tab, 3 Refill(s), Pharmacy: [facility] [place], Increased to losartan 100mg on 01/16/19 { Yes 8 mg = 2 Memoria (lenvatinib 9-04 cap, PO, l 4 MG Oral 17:17: Daily, X Herm ondina Capsule 53 30 day, # [Lenvima]) 60 cap, 3 } Pack Refill(s), [Lenvima 4] Pharmacy: [facility], icd10: C22.0 SORAfenib Yes 200 mg = 1 Me moria 200 mg oral 9-03 tab, PO, l tablet 15:50: BID, # 60 Jairo n 00 tab, 3 Refill(s), Pharmacy: [facility], icd10: C22.0 { No 8 mg = 2 Memoria (lenvatinib 8-26 cap, PO, l 4 MG Oral 17:56: Daily, X Herm ondina Capsule 30 30 day, # [Lenvima]) 60 cap, 3 } Pack Refill(s), [Lenvima 4] Pharmacy: [facility], icd10: C22.0 Urea 200 Yes 1 appl, Memori a MG/ML 8-23 TOP, BID, l Topical 18:37: PRN Dry Melvin Cream 00 Skin, X 30 day, # 120 gm, 5 Refill(s), Pharmacy: [facility] [place] { No 8 mg = 2 Memoria (lenvatinib 8-23 cap, PO, l 4 MG Oral 18:26: Daily, X Herm ondina Capsule 00 30 day, # [Lenvima]) 60 cap, 3 } Pack Refill(s), [Lenvima 4] Pharmacy: [facility], icd10: C22.0 Prochlorper Yes 10 mg = 1 M emoria azine 10 MG 8-23 tab, PO, l Oral Tablet 18:17: Q6H, PRN He rmann 00 Nausea & Vomiting, X 30 day, # 100 tab, 1 Refill(s), Pharmacy: [facility] 808 Ondansetron Yes 8 mg = 1 Me moria 8 MG Oral 8-23 tab, PO, l Tablet 18:17: TID, PRN Lanse 00 Nausea & Vomiting, # 90 tab, 3 Refill(s), Pharmacy: [facility] 808 Lenvima 8 No 8 mg = 2 Zafar joe mg 8-23 cap, PO, l daily-dose 18:15: Daily, X Her whitfield oral 00 30 day, # capsule 60 cap, 1 Refill(s), called to pharmacy Lactulose Yes 10 gm = 15 Me moria 667 MG/ML 8-23 mL, PO, l Oral 18:15: Daily, PRN Melvin Solution 00 constipati on, X 30 day, # 500 mL, 1 Refill(s), Pharmacy: [facility] 808 Humulin Yes 50 units, Memor ia 70/30 8-01 SUB-Q, l 21:06: QID, 0 Melvin 00 Refill(s) losartan 50 Yes 50 mg = 1 M emoria mg oral 6-27 tab, PO, l tablet 16:20: Daily, # Lanse 00 30 tab, 11 Refill(s), other Dilaudid No 0.5 mg, Memori a 6-19 Route: l 21:29: IVP, ONCE, Lanse 00 Dosing Weight 125.455, kg, Priority: STAT, Start date: 10/22/17 16:29:00 CDT, Stop date: 10/22/17 16:29:00 CDT Fentanyl 2017-0 No 50 Memoria 6-19 microgram, l 17:56: Route: IV, Melvin 00 ONCE, Dosing Weight 125.455, kg, Start date: 10/22/17 12:56:00 CDT, Stop date: 10/22/17 12:56:00 CDT Spironolact 2016-0 Yes See Memori a one 4-24 Instructio l 16:47: ns, 1 Lanse 00 tab PO Daily, 0 Refill(s) Esomeprazol Yes 20 mg = 1 M emoria e 20 MG 3-30 cap, PO, l Enteric 20:31: Daily, # Jairo n Coated 00 90 cap, 0 Capsule Refill(s) Ribavirin Yes 200 mg, Memor ia 3-30 PO, BID, 0 l 20:31: Refill(s) Lanse 00 {7 Yes See Memoria (Ribavirin 2-13 Instructio l 200 MG Oral 18:03: ns, 2 tab H ermann Tablet) / 7 00 in AM, 1 (Ribavirin tab PM, 0 400 MG Oral Refill(s) Tablet) } Pack sofosbuvir Yes = 1 tab, Mem oria 400 MG / 2-13 PO, Daily, l velpatasvir 18:03: 0 Jairo n 100 MG Oral 00 Refill(s) Tablet [Epclusa] Home Yes See Memoria Medication 2-13 Instructio l 18:03: ns, Equate Melvin 00 Antacid tablets, Refill(s) 0 ferrous Yes 325 mg = 1 Zafar joe gluconate 2-13 tab, PO, l 325 mg oral 18:03: Daily, 0 He rmann tablet 00 Refill(s) Hydralazine Yes 50 mg = 1 M emoria Hydrochlori 1-16 tab, PO, l de 50 MG 17:23: TID, 0 Lanse Oral Tablet 00 Refill(s) AMIODarone 2015-05 Yes 200 mg = 1 M emoria 200 mg oral 2-22 tab, PO, l tablet 21:16: Daily, # Melvin 00 90 tab, 3 Refill(s) GoLYTELY 2015-05 Yes See Memoria oral powder 2-22 Instructio l for 21:11: ns, Take Melvin reconstitut 00 as ion directed by physician. , # 1 ea, 0 Refill(s), Pharmacy: [facility] [id number] tramadol 2015-05 Yes 50 mg = 1 Zafar joe hydrochlori 2-22 tab, PO, l de 50 MG 20:11: Q4H, 0 Lanse Oral Tablet 00 Refill(s) apixaban 5 2015-05 Yes 5 mg = 1 Mem oria mg oral 2-22 tab, PO, l tablet 20:11: BID, 0 Melvin 00 Refill(s) potassium 2015-05 Yes 0 Memoria chloride 10 2-22 Refill(s) l mEq/50 mL 20:11: Melvin intravenous 00 solution Lovenox 2015-05 No Notes: Memoria 0-05 (Same as: l 22:00: Lovenox) Lanse 00 pantoprazol 2015-05 No Notes: Zafar joe e 0-05 Tablet l 21:30: should not Lanse 00 be chewed or crushed. (Same as: Protonix) NovoLOG Mix 2015-05 No Notes: Zafar joe 70/30 0-05 Roll in l 21:30: palms of Melvin 00 hands gently; Do not shake vigorously . (Same as: NovoLOG Mix) "single patient use only" WASTE: F/P - Black; E - Municipal Trash Bin Stable for 14 days at room temperatur e Expires in days from ____Date Acetaminoph 2015-05 Yes 1 tab, PO, Memoria en 325 MG / 0-05 Q6H, PRN l Hydrocodone 20:06: Pain Score Lanse Bitartrate 00 7-10, X 7 5 MG Oral day, # 28 Tablet tab, 0 [Fritch Refill(s), 5/325] given to patient Cephalexin 2015-05 Yes 500 mg = 1 M emoria 500 MG Oral 0-05 cap, PO, l Capsule 20:06: QID, X 7 Jairo n [Keflex] 00 day, # 28 cap, 0 Refill(s), given to patient 24 HR 2015-05 No Notes: Memoria Metoprolol 0-05 (Same as: l Tartrate 50 14:00: Toprol XL) Melvin MG Extended 00 Release Tablet [Toprol] Spironolact 2015-05 No Notes: Zafar joe one 0-05 (Same As: l 14:00: Aldactone) Lanse 00 Lisinopril 2015-05 No Notes: Memor ia 0-05 (Same as: l 14:00: Prinivil, Lanse 00 Zestril) Isosorbide 2015-05 No Notes: Memor ia 0-05 (Same l 14:00: as:Imdur) Melvin 00 Take on empty stomach/ full glass of water. Do not crush NovoLOG Mix 2015-05 No Notes: Zafar joe 70/30 0-05 Roll in l 14:00: palms of Lanse 00 hands gently; Do not shake vigorously . (Same as: NovoLOG Mix) "single patient use only" WASTE: F/P - Black; E - Municipal Trash Bin Stable for 14 days at room temperatur e Expires in days from ____Date Furosemide 2015-05 No Notes: Memor ia 40 MG Oral 0-05 (Same as: l Tablet 14:00: Lasix) Melvin [Lasix] 00 May cause GI upset. Give with food or milk. pneumococca 2015-05 No Notes: Zafar joe l capsular 0-05 (Same as: l polysacchar 14:00: Pneumovax H ermann yonathan type 1 00 23) vaccine / Refrigerat pneumococca e l capsular polysacchar yonathan type 10A vaccine / pneumococca l capsular polysacchar yonathan type 11A vaccine / pneumococca l capsular polysacchar yonathan type 12F vaccine / pneumococca l capsular polysacchar Hydralazine 2015-05 No Notes: Zafar joe Hydrochlori 0-05 (Same as: l de 50 MG 13:00: Apresoline Her whitfield Oral Tablet ) May interfere w/enteral feedings Take With Food Insulin 2015-05 No 60 Memoria regular 0-05 units) l 10:39: WASTE: F/P Melvin 00 - Black; E - Municipal Trash Bin Stable for 28 days at room temperatur e Expires in days from ____Date Dextrose 2015-05 No 12.5 gm, Memor ia 50% Syringe 0-05 25 mL, l 10:39: Route: IVP, Drug Form: INJ, Dosing Weight 98.636, kg, PRN, PRN Blood Glucose Results, Start date: 02/08/16 5:39:00 CDT, Duration: 30 day, Stop date: 03/09/16 5:38:00 CDT Glucagon 2015-05 No 1 mg, Memoria 0-05 Route: IM, l 10:39: Drug form: Lanse 00 PDR/INJ, PRN, Dosing Weight 98.636, kg, PRN Blood Glucose Results, Start date: 02/08/16 5:39:00 CDT, Duration: 30 day, Stop date: 03/09/16 5:38:00 CDT Ondansetron 2015-05 No Notes: Zafar joe 0-05 (Same as: l 08:32: Zofran) Melvin 00 MEDICATION WASTE Product Size: 4 mg Product Wasted: ___ mg Albuterol 2015-05 No Notes: SEE Me moria 0.83 MG/ML 0-05 RT l Inhalant 08:32: DOCUMENTAT Her whitfield Solution 00 ION (Same as: Proventil) Flumazenil 2015-05 No Notes: Memor ia 0-05 (Same as: l 08:32: Romazicon) Naloxone 2015-05 No Notes: Memoria 0-05 Same as l 08:32: Narcan Hydromorpho 2015-05 No Notes: Zafar joe ne 0-05 (Same as: l 08:32: Dilaudid) Oxycodone 2015-05 No Notes: Memori a 0-05 (Same as: l 08:32: Roxicodone Melvin ) Lovenox 2015-05 No Notes: Memoria 0-05 (Same as: l 08:00: Lovenox) Lanse 00 Ancef 2015-05 No 2 gm, Memoria 0-05 Route: l 07:15: IVPB, Lanse ONCE, Dosing Weight 98.636, kg, Start date: 02/08/16 2:15:00 CDT, Stop date: 02/08/16 2:15:00 CDT Oxycodone 2015-05 No Notes: Memori a Hydrochlori 0-05 (Same as: l de 5 MG 07:15: Roxicodone Herm ondina Oral Tablet 00 ) Oxycodone 2015-05 No Notes: Memori a Hydrochlori 0-05 (Same as: l de 5 MG 07:14: Roxicodone Herm ondina Oral Tablet 00 ) Ondansetron 2015-05 No Notes: Zafar joe 0-05 (Same as: l 05:24: Zofran) Melvin 00 MEDICATION WASTE Product Size: 4 mg Product Wasted: ___ mg Morphine 2015-05 No Notes: Memoria 0-05 (Same l 03:50: as:MORPhin Lanse 00 e Sulfate) Ondansetron 2015-05 No 4 mg, Memor ia 0-05 Route: l 01:49: IVP, Drug form: INJ, ONCE, Dosing Weight 99.545, kg, Priority: STAT, Start date: 02/07/16 20:49:00 CDT, Stop date: 02/07/16 20:49:00 CDT Morphine 2015-05 No 4 mg, Memoria 0-05 Route: l 01:49: IVP, ONCE, Lanse 00 Dosing Weight 99.545, kg, Priority: STAT, Start date: 02/07/16 20:49:00 CDT, Stop date: 02/07/16 20:49:00 CDT pantoprazol Yes 40 mg = 1 M emoria e 40 mg 9-24 tab, PO, l oral 17:00: Before Lanse enteric 00 Dinner, # coated 30 tab, 0 tablet Refill(s), Pharmacy: [facility] lisinopril Yes 10 mg = 1 Me moria 10 mg oral 9-24 tab, PO, l tablet 17:00: Daily, # Lanse 00 30 tab, 0 Refill(s), Pharmacy: [facility] isosorbide Yes 30 mg = 1 Me moria mononitrate 9-24 tab, PO, l 30 mg oral 17:00: QAM, # 30 He rmann tablet, 00 tab, 0 extended Refill(s), release Pharmacy: [facility] Hydralazine Yes 50 mg = 1 M emoria Hydrochlori 9-24 tab, PO, l de 50 MG 17:00: Q8H, # 90 Herm ondina Oral Tablet 00 tab, 0 Refill(s), Pharmacy: [facility] 808 metoprolol Yes 50 mg = 1 Me moria 50 mg oral 9-24 tab, PO, l tablet, 17:00: BID, # 60 Christel nn extended 00 tab, 0 release Refill(s), Pharmacy: [facility] 808 Furosemide Yes 40 mg = 1 Me moria 40 MG Oral 9-24 tab, PO, l Tablet 17:00: Daily, # Melvin [Lasix] 00 30 tab, 0 Refill(s), Pharmacy: [facility] 808 spironolact Yes 100 mg = 1 Memoria one 100 mg 01-27 tab, PO, l oral tablet 17:00: Daily, # He rmann 00 30 tab, 0 Refill(s), Pharmacy: [facility] 808 Protonix No Notes: Memoria 01-26 Tablet l 22:40: should not Lanse 00 be chewed or crushed. (Same as: Protonix) albumin No Notes: Lot Zafar joe human 25% 01-26 #: l intravenous 16:42: Lanse solution 00 ___ Mfg: (Same as: Plasbumin- 25) "blood product derivative " WASTE: F/P - Red; E -Red MEDICATION WASTE Product Size: 25 gm Product Wasted: ___ gm Lisinopril No Notes: Memor ia 01-26 (Same as: l 16:10: Prinivil, Melvin 00 Zestril) Furosemide No Notes: Memor ia 40 MG Oral 01-25 (Same as: l Tablet 22:00: Lasix) Melvin [Lasix] 00 May cause GI upset. Give with food or milk. Sodium No 500 mL, Memoria Chloride 01-25 Rate: 25 l 0.154 17:20: ml/hr, Lanse MEQ/ML 00 Infuse Injectable over: 20 Solution hr, Route: IV, Dosing Weight 115 kg, Total Volume: 500, Start date: 01/26/16 12:20:00 CDT, Duration: 30 day, Stop date: 02/25/16 12:19:00 CDT fluticasone No Notes: Zafar joe nasal 0.05 01-25 (Same as: l mg/inh 14:15: Flonase) Lanse spray 00 Robitussin No 5 mL, Memori a DM 01-25 Route: PO, l 09:00: Dosing Lanse 00 Weight 115, kg, Q4H, Start date: 01/26/16 4:00:00 CDT, Duration: 30 day, Stop date: 02/25/16 0:00:00 CDT Robitussin No 5 mL, Memori a DM 01-25 Route: PO, l 05:00: Dosing Melvin 00 Weight 115, kg, Q6H, Start date: 01/26/16 0:00:00 CDT, Duration: 30 day, Stop date: 02/24/16 18:00:00 CDT Robitussin No Notes: Memor ia DM 01-25 (dextromet l 03:46: horphan-gu Lanse 00 aifenesin 10-100mg/5 ml 10 ml oral SOLN ud) (Same as: Robitussin DM) Toprol-XL No Notes: Memori a 50 mg oral 9-21 (Same as: l tablet, 22:31: Toprol XL) Herm ondina extended May split release tab, but do not crush. Albuterol No Notes: Memori a 0.833 MG/ML -21 (Same as: l / 19:00: Duoneb) Melvin Ipratropium 00 Ford 0.167 MG/ML Inhalant Solution [DuoNeb] Aldactone No Notes: Memori a 9-21 (Same As: l 15:29: Aldactone) Lanse 00 Furosemide No Notes: Memor ia 40 MG Oral -21 (Same as: l Tablet 15:29: Lasix) Melvin [Lasix] 00 May cause GI upset. Give with food or milk. Insulin, No Notes: Memoria Aspart, 9-20 Roll in l Human 21:19: palms of Melvin 00 hands gently; Do not shake vigorously . (Same as: NovoLOG) "single patient use only" WASTE: F/P - Black; E - Municipal Trash Bin Stable for 28 days at room temperatur e. Expires in days from ____Date Mupirocin No 1 appl, Memor ia 0.02 MG/MG 9-20 Route: l Topical 21:00: NASAL, Lanse Ointment 00 Q8H, Drug form: OINT, Start date: 01/24/16 16:00:00 CDT, Stop date: 01/29/16 8:00:00 CDT albumin No Notes: Lot Zafar joe human 25% 01-23 #: l intravenous 17:00: Melvin solution 00 ___ Mfg: (Same as: Plasbumin- 25) "blood product derivative " WASTE: F/P - Red; E -Red MEDICATION WASTE Product Size: 25 gm Product Wasted: ___ gm albumin No Notes: Lot Zafar ruffin 25% 01-23 #: l intravenous 13:36: Lanse solution 00 ___ Mfg: (Same as: Plasbumin- 25) "blood product derivative " WASTE: F/P - Red; E -Red MEDICATION WASTE Product Size: 25 gm Product Wasted: ___ gm Albuterol No Notes: Memori a 0.833 MG/ML 01-23 (Same as: l / 00:00: Duoneb) Lanse Ipratropium 00 Ford 0.167 MG/ML Inhalant Solution [DuoNeb] NovoLOG Mix No Notes: Zafar joe 70/30 01-22 Roll in l FlexPen 23:30: palms of Jairo n 00 hands gently; Do not shake vigorously . (Same as: NovoLOG Mix) "single patient use only" WASTE: F/P - Black; E - Municipal Trash Bin Stable for 14 days at room temperatur e Expires in days from ____Date Lactulose No Notes: Memori a 01-22 (Same l 18:41: as:Chronul Melvin 00 ac) albumin No 25 gm, Maribell ruffin 25% 01-22 Route: l intravenous 13:59: IVPB, Christel nn solution 00 ONCE, Dosing Weight 115, kg, Priority: STAT, Start date: 01/23/16 8:59:00 CDT, Stop date: 01/23/16 8:59:00 CDT albumin No Notes: Maribell human 25% 01-22 LOT#: l intravenous 13:21: Melvin solution 00 ___ Mfg: WASTE: F/P - Red; E -Red (Same as: Albuminar) "blood product derivative " Bumex No Notes: Memoria 9-18 (Same As: l 21:00: Bumex) Melvin 00 Hydralazine No Notes: Zafar joe Hydrochlori -18 (Same as: l de 50 MG 21:00: Apresoline Her whitfield Oral Tablet 00 ) May interfere w/enteral feedings Take With Food Imdur No Notes: Memoria -18 (Same l 14:00: as:Imdur) Lanse 00 "Do Not Crush" Take on empty stomach/ full glass of water. Do not crush 24 HR No Notes: Memoria Metoprolol 01-21 (Same as: l Tartrate 50 14:00: Toprol XL) Melvin MG Extended May split Release tab, but Tablet do not [Toprol] crush. NovoLOG Mix No Notes: Zafar joe 70/30 -18 Roll in l 14:00: palms of Melvin 00 hands gently; Do not shake vigorously . (Same as: NovoLOG Mix) "single patient use only" WASTE: F/P - Black; E - Municipal Trash Bin Stable for 14 days at room temperatur e Expires in days from ____Date Hydralazine No 10 mg, Zafar joe -18 Route: IV, l 05:00: Q4H, Lanse 00 Dosing Weight 115, kg, For Systolic Blood Pressure greater than 160, Start date: 01/22/16 0:00:00 CDT, Duration: 30 day, Stop date: 02/20/16 20:00:00 CDT Hydralazine No Notes: Zafar joe Hydrochlori -18 (Same as: l de 50 MG 05:00: Apresoline Her whitfield Oral Tablet 00 ) May interfere w/enteral feedings Take With Food Hydralazine No Notes: Zafar joe 9-18 (Same as: l 04:55: Apresoline Lanse 00 ) Push over 5 minutes Lasix No Notes: Memoria 9-18 (Same as: l 02:00: Lasix) Melvin 00 MEDICATION WASTE Product Size: 40 mg Product Wasted: ___ mg Hydralazine No Notes: Zafar joe Hydrochlori 01-20 (Same as: l de 25 MG 23:00: Apresoline Her whitfield Oral Tablet 00 ) May interfere w/enteral feedings Take With Food. 24 HR No Notes: Memoria Metoprolol 01-20 (Same as: l Tartrate 50 22:00: Toprol XL) Melvin MG Extended 00 May split Release tab, but Tablet do not [Toprol] crush. bumetanide No Notes: Memor ia 10 mg + 01-20 (Same As: l sodium 21:42: Bumex) Melvin chloride 00 0.9% INJ 60 mL NovoLOG Mix No Notes: Zafar joe 70/30 01-20 Roll in l 21:30: palms of Melvin 00 hands gently; Do not shake vigorously . (Same as: NovoLOG Mix) "single patient use only" WASTE: F/P - Black; E - Municipal Trash Bin Stable for 14 days at room temperatur e Expires in days from ____Date Aspirin No Notes: Do Memor ia 01-20 not crush l 21:00: or chew. Melvin 00 (Same As: Ecotrin) Albuterol No Notes: Memori a 0.833 MG/ML 01-20 (Same as: l / 20:45: Duoneb) Melvin Ipratropium 00 Ford 0.167 MG/ML Inhalant Solution [DuoNeb] Insulin, No Notes: Memoria Aspart, 01-20 Roll in l Human 20:13: palms of Melvin 00 hands gently; Do not shake vigorously . (Same as: NovoLOG) "single patient use only" WASTE: F/P - Black; E - Municipal Trash Bin Stable for 28 days at room temperatur e. Expires in days from ____Date Dextrose No 12.5 gm, Memor ia 50% Syringe 01-20 25 mL, l 20:13: Route: Melvin 00 IVP, Drug Form: INJ, Dosing Weight 106.818, kg, PRN, PRN Blood Glucose Results, Start date: 01/21/16 15:13:00 CDT, Duration: 30 day, Stop date: 02/20/16 15:12:00 CDT Glucagon No 1 mg, Memoria 01-20 Route: IM, l 20:13: Drug form: Lanse 00 PDR/INJ, PRN, Dosing Weight 106.818, kg, PRN Blood Glucose Results, Start date: 01/21/16 15:13:00 CDT, Duration: 30 day, Stop date: 02/20/16 15:12:00 CDT Ondansetron No Notes: Zafar joe 01-20 (Same as: l 20:12: Zofran) MEDICATION WASTE Product Size: 4 mg Product Wasted: ___ mg Morphine No Notes: Memoria 01-20 (Same l 20:12: as:MORPhin Lanse 00 e Sulfate) Acetaminoph No Notes: Do M emoria en 01-20 not exceed l 20:12: 4 gm/day. Lanse (Same as: Tylenol) Acetaminoph No Notes: Zafar joe en 325 MG / 01-20 (Same as: l Hydrocodone 20:12: Fritch Christel nn Bitartrate 00 325/5) Do 5 MG Oral not exceed Tablet 4gm/day of acetaminop hen. NovoLOG Mix Yes 50 unit, Me moria 70/30 01-20 SUB-Q, l 19:25: QAM, 0 Melvin 00 Refill(s) metoprolol No 50 mg = 1 Me moria 50 mg oral -17 tab, PO, l tablet, 19:25: Daily, # Jairo n extended 00 30 tab, 0 release Refill(s) Furosemide No 40 mg = 1 Me moria 40 MG Oral -17 tab, PO, l Tablet 19:25: Daily, 0 Lanse [Lasix] 00 Refill(s) Immunizations Ordered Immunization Filled Immunization Date Status Commen ts Source Name Name pneumococcal 2012-08-04 Completed [facility] 23-valent 11:58:10 Lanse vaccine<sup>1</sup> Hx hepatitis B 2012-08-04 Completed [facility] vaccine<sup>2</sup> 05:00:00 Christel nn Hx hepatitis A 2012-06-16 Completed [facility] vaccine<sup>4</sup> 06:00:00 Christel nn Hx hepatitis B 2012-06-16 Completed [facility] vaccine<sup>3</sup> 06:00:00 Christel nn Hx influenza 2012-02-05 Completed [facility] vaccine-unspecified< 15:28:07 Herm ondina sup>5</sup> Vital Signs Vital Name Observation Time Observation Value Comments Source Systolic (mm Hg) 2020-12-08 16:50:00 Zafar rial Melvin Diastolic (mm Hg) 2020-12-08 16:50:00 Mem orial Melvin Heart Rate 2020-12-08 16:50:00 [facility] Melvin Respitory Rate 2020-12-08 16:50:00 Memori al Melvin Temperature Oral (F) 2020-12-08 16:50:00 97.9 F [facility] [place] Height 2020-12-08 16:50:00 182.8 cm [facility] [place] Weight 2020-12-08 16:50:00 [facility] Melvin BMI Calculated 2020-12-08 16:50:00 Memori al Melvin Heart Rate 2020-11-11 20:15:00 [facility] [place] Respitory Rate 2020-11-11 20:15:00 Memori al [place] Systolic (mm Hg) 2020-11-11 20:15:00 Zafar rial Lanse Diastolic (mm Hg) 2020-11-11 20:15:00 Mem orial Melvin Systolic (mm Hg) 2020-11-11 19:54:00 Zafar rial Lanse Diastolic (mm Hg) 2020-11-11 19:54:00 Mem orial Melvin Heart Rate 2020-11-11 19:54:00 [facility] Melvin Respitory Rate 2020-11-11 19:54:00 Memori al Melvin Temperature Oral (F) 2020-11-11 19:54:00 97.5 F [facility] [place] Height 2020-11-11 19:54:00 182.8 cm [facility] Melvin Weight 2020-11-11 19:54:00 [facility] [place] BMI Calculated 2020-11-11 19:54:00 Memori al Melvin Temperature Oral (F) 2020-11-11 18:39:00 97.8 F [facility] Melvin Height 2020-11-11 18:39:00 182.8 cm [facility] Melvin Systolic (mm Hg) 2020-10-06 15:49:00 Zafar rial Melvin Diastolic (mm Hg) 2020-10-06 15:49:00 Mem orial [place]se Heart Rate 2020-10-06 15:49:00 [facility] [place] Respitory Rate 2020-10-06 15:49:00 Memori al [place]se Temperature Oral (F) 2020-10-06 15:49:00 97.6 F [facility] Melvin Height 2020-10-06 15:49:00 182.8 cm [facility] Melvin Weight 2020-10-06 15:49:00 [facility] Melvin BMI Calculated 2020-10-06 15:49:00 Memori al Melvin Systolic (mm Hg) 2020-10-06 14:29:00 Zafar rial Lanse Diastolic (mm Hg) 2020-10-06 14:29:00 Mem orial [place] Heart Rate 2020-10-06 14:29:00 [facility] Melvin Respitory Rate 2020-10-06 14:29:00 Memori al Melvin Temperature Oral (F) 2020-10-06 14:29:00 98.1 F [facility] [place]vin Height 2020-10-06 14:29:00 182.8 cm [facility] Melvin Weight 2020-10-06 14:29:00 [facility] [place] BMI Calculated 2020-10-06 14:29:00 Memori al [place]se Systolic (mm Hg) 2020-09-08 16:15:00 Zafar rial Lanse Diastolic (mm Hg) 2020-09-08 16:15:00 Mem orial [place]se Heart Rate 2020-09-08 16:15:00 [facility] Melvin Respitory Rate 2020-09-08 16:15:00 Memori al Melvin Temperature Oral (F) 2020-09-08 16:15:00 97.8 F [facility] [place]vin Height 2020-09-08 16:15:00 182.8 cm [facility] Melvin Weight 2020-09-08 16:15:00 [facility] Melvin BMI Calculated 2020-09-08 16:15:00 Memori al [place]se Systolic (mm Hg) 2020-09-01 17:28:00 Zafar rial Melvin Diastolic (mm Hg) 2020-09-01 17:28:00 Mem orial Melvin Heart Rate 2020-09-01 17:28:00 [facility] [place] Height 2020-09-01 17:28:00 182.88 cm [facility] [place] Weight 2020-09-01 17:28:00 [facility] Melvin BMI Calculated 2020-09-01 17:28:00 Memori al [place] Systolic (mm Hg) 2020-08-11 16:59:00 Zafar rial Lanse Diastolic (mm Hg) 2020-08-11 16:59:00 Mem orial Melvin Heart Rate 2020-08-11 16:59:00 [facility] [place] Respitory Rate 2020-08-11 16:59:00 Memori al Melvin Temperature Oral (F) 2020-08-11 16:59:00 98.1 F [facility] [place] Height 2020-08-11 16:59:00 182.88 cm [facility] [place] Weight 2020-08-11 16:59:00 [facility] Melvin BMI Calculated 2020-08-11 16:59:00 Memori al Melvin Systolic (mm Hg) 2020-08-11 16:23:00 Zafar rial Melvin Diastolic (mm Hg) 2020-08-11 16:23:00 Mem orial Melvin Heart Rate 2020-08-11 16:23:00 [facility] Melvin Respitory Rate 2020-08-11 16:23:00 Memori al Lanse Temperature Oral (F) 2020-08-11 16:23:00 98.1 F [facility] Melvin Height 2020-08-11 16:23:00 176 cm [facility] Melvin Weight 2020-08-11 16:23:00 [facility] [place] BMI Calculated 2020-08-11 16:23:00 Memori al Melvin Height 2020-08-10 14:29:00 172.72 cm [facility] Melvin Systolic (mm Hg) 2020-08-10 14:29:00 Zafar rial Lanse Diastolic (mm Hg) 2020-08-10 14:29:00 Mem orial Melvin Heart Rate 2020-08-10 14:29:00 [facility] [place] Weight 2020-08-10 14:29:00 [facility] [place] BMI Calculated 2020-08-10 14:29:00 Memori al [place] Systolic (mm Hg) 2020-07-14 19:01:00 Zafar rial Lanse Diastolic (mm Hg) 2020-07-14 19:01:00 Mem orial [place]se Heart Rate 2020-07-14 19:01:00 [facility] [place] Respitory Rate 2020-07-14 19:01:00 Memori al Melvin Temperature Oral (F) 2020-07-14 19:01:00 98.3 F [facility] [place] Height 2020-07-14 19:01:00 176 cm [facility] [place] Weight 2020-07-14 19:01:00 [facility] Melvin BMI Calculated 2020-07-14 19:01:00 Memori al [place] Systolic (mm Hg) 2020-05-31 20:05:00 Zafar rial Lanse Diastolic (mm Hg) 2020-05-31 20:05:00 Mem orial Melvin Systolic (mm Hg) 2020-05-31 19:44:00 Zafar rial Melvin Diastolic (mm Hg) 2020-05-31 19:44:00 Mem orial Melvin Heart Rate 2020-05-31 19:44:00 [facility] Melvin Respitory Rate 2020-05-31 19:44:00 Memori al [place]se Temperature Oral (F) 2020-05-31 19:44:00 98.3 F [facility] [place] Height 2020-05-31 19:44:00 176 cm [facility] [place] Weight 2020-05-31 19:44:00 [facility] [place] BMI Calculated 2020-05-31 19:44:00 Memori al [place] Systolic (mm Hg) 2020-04-07 18:11:00 Zafar rial [place]se Diastolic (mm Hg) 2020-04-07 18:11:00 Mem orial [place] Heart Rate 2020-04-07 18:11:00 [facility] [place] Respitory Rate 2020-04-07 18:11:00 Memori al [place] Temperature Oral (F) 2020-04-07 18:11:00 98.3 F [facility] [place]vin Height 2020-04-07 18:11:00 182 cm [facility] [place] Weight 2020-04-07 18:11:00 [facility] [place] BMI Calculated 2020-04-07 18:11:00 Memori al [place] Systolic (mm Hg) 2020-03-10 19:52:00 Zafar rial Melvin Diastolic (mm Hg) 2020-03-10 19:52:00 Mem orial [place] Heart Rate 2020-03-10 19:52:00 [facility] Melvin Respitory Rate 2020-03-10 19:52:00 Memori al Melvin Temperature Oral (F) 2020-03-10 19:52:00 98.0 F [facility] [place] Height 2020-03-10 19:52:00 182 cm [facility] Weight 2020-03-10 19:52:00 [facility] [place] BMI Calculated 2020-03-10 19:52:00 Memori al [place] Systolic (mm Hg) 2020-03-10 19:47:00 Zafar rial [place]se Diastolic (mm Hg) 2020-03-10 19:47:00 Mem orial [place] Heart Rate 2020-03-10 19:47:00 [facility] Mel[place] Respitory Rate 2020-03-10 19:47:00 Memori al Melvin Temperature Oral (F) 2020-03-10 19:47:00 97.8 F [facility] [place] Height 2020-03-10 19:47:00 182 cm [facility] [place] Weight 2020-03-10 19:47:00 [facility] [place] BMI Calculated 2020-03-10 19:47:00 Memori al Melvin Systolic (mm Hg) 2020-02-11 19:53:00 Zafar rial [place]se Diastolic (mm Hg) 2020-02-11 19:53:00 Mem orial [place] Heart Rate 2020-02-11 19:53:00 [facility] [place] Systolic (mm Hg) 2020-02-11 19:26:00 Zafar rial [place]se Diastolic (mm Hg) 2020-02-11 19:26:00 Mem o[facility] [place] Heart Rate 2020-02-11 19:26:00 [facility] Melvin Systolic (mm Hg) 2020-02-11 19:16:00 Zafar rial Melvin Diastolic (mm Hg) 2020-02-11 19:16:00 Mem orial [place] Heart Rate 2020-02-11 19:16:00 [facility] Melvin Respitory Rate 2020-02-11 19:16:00 Memori al Melvin Temperature Oral (F) 2020-02-11 19:16:00 97.8 F [facility] [place] Height 2020-02-11 19:16:00 182 cm [facility] [place] Weight 2020-02-11 19:16:00 [facility] [place] BMI Calculated 2020-02-11 19:16:00 Memori al Melvin Respitory Rate 2020-02-11 18:34:00 Memori al Melvin Temperature Oral (F) 2020-02-11 18:34:00 98.3 F [facility] [place] Height 2020-02-11 18:34:00 182 cm [facility] [place] Weight 2020-02-11 18:34:00 [facility] [place] BMI Calculated 2020-02-11 18:34:00 Memori al Melvin Respitory Rate 2020-01-14 16:43:00 Memori al [place] Temperature Oral (F) 2020-01-14 16:43:00 97.4 F [facility] [place] Height 2020-01-14 16:43:00 182 cm [facility] [place] Weight 2020-01-14 16:43:00 [facility] [place] BMI Calculated 2020-01-14 16:43:00 Memori al Melvin Systolic (mm Hg) 2019-12-17 19:54:00 Zafar rial Melvin Diastolic (mm Hg) 2019-12-17 19:54:00 Mem orial [place] Heart Rate 2019-12-17 19:54:00 [facility] Melvin Respitory Rate 2019-12-17 19:54:00 Memori al [place] Temperature Oral (F) 2019-12-17 19:54:00 98.4 F [facility] [place] Height 2019-12-17 19:54:00 182 cm [facility] Melvin Weight 2019-12-17 19:54:00 [facility] [place] BMI Calculated 2019-12-17 19:54:00 Memori al Melvin Heart Rate 2019-12-17 19:20:00 [facility] [place] Systolic (mm Hg) 2019-12-17 19:20:00 Zafar rial [place]se Diastolic (mm Hg) 2019-12-17 19:20:00 [facility] Systolic (mm Hg) 2019-12-17 18:57:00 [facility] Diastolic (mm Hg) 2019-12-17 18:57:00 [facility] Heart Rate 2019-12-17 18:57:00 [facility] Respitory Rate 2019-12-17 18:57:00 [facility] Temperature Oral (F) 2019-12-17 18:57:00 98.0 F [facility] Height 2019-12-17 18:57:00 182 cm [facility] Weight 2019-12-17 18:57:00 [facility] BMI Calculated 2019-12-17 18:57:00 [facility] Systolic (mm Hg) 2019-11-19 18:44:00 [facility] Diastolic (mm Hg) 2019-11-19 18:44:00 [facility] Heart Rate 2019-11-19 18:44:00 [facility] Respitory Rate 2019-11-19 18:44:00 [facility] Temperature Oral (F) 2019-11-19 18:44:00 97.8 F [facility] Height 2019-11-19 18:44:00 182 cm [facility] Weight 2019-11-19 18:44:00 [facility] BMI Calculated 2019-11-19 18:44:00 [facility] Respitory Rate 2019-11-19 18:06:00 [facility] Temperature Oral (F) 2019-11-19 18:06:00 98.1 F [facility] Height 2019-11-19 18:06:00 182.8 cm [facility] Weight 2019-11-19 18:06:00 [facility] BMI Calculated 2019-11-19 18:06:00 [facility] Systolic (mm Hg) 2019-10-20 14:54:00 [facility] Diastolic (mm Hg) 2019-10-20 14:54:00 [facility] [facility] [facility] Rate 2019-10-20 14:54:00 [facility] Resp[facility] Rate 2019-10-20 14:54:00 [facility] Temperature Oral (F) 2019-10-20 14:54:00 98.0 F [facility] Height 2019-10-20 14:54:00 182.8 cm [facility] Weight 2019-10-20 14:54:00 [facility] BMI Calculated 2019-10-20 14:54:00 [facility] Systolic (mm Hg) 2019-10-20 14:08:00 Z[facility]ar [facility] Diastolic (mm Hg) 2019-10-20 14:08:00 [facility] Heart Rate 2019-10-20 14:08:00 [facility] Respitory Rate 2019-10-20 14:08:00 [facility] Temperature Oral (F) 2019-10-20 14:08:00 97.8 F [facility] Height 2019-10-20 14:08:00 182.8 cm [facility] Weight 2019-10-20 14:08:00 [facility] BMI Calculated 2019-10-20 14:08:00 [facility] Systolic (mm Hg) 2019-09-22 15:34:00 Zafar [facility] [place] Diastolic (mm Hg) 2019-09-22 15:34:00 [facility] Heart Rate 2019-09-22 15:34:00 [facility] Respitory Rate 2019-09-22 15:34:00 [facility] [place] Temperature Oral (F) 2019-09-22 15:34:00 97.6 F [facility] Height 2019-09-22 15:34:00 182.8 cm [facility] Weight 2019-09-22 15:34:00 [facility] BMI Calculated 2019-09-22 15:34:00 [facility] [place] Height 2019-09-22 13:58:00 182.8 cm [facility] Systolic (mm Hg) 2019-09-22 13:58:00 Zafar rial [place] Diastolic (mm Hg) 2019-09-22 13:58:00 [facility] Heart Rate 2019-09-22 13:58:00 [facility] Respitory Rate 2019-09-22 13:58:00 [facility] Temperature Oral (F) 2019-09-22 13:58:00 97.8 F [facility] Weight 2019-09-22 13:58:00 [facility] BMI Calculated 2019-09-22 13:58:00 [facility] [place] Systolic (mm Hg) 2019-08-25 15:03:00 Zafar rial [place] Diastolic (mm Hg) 2019-08-25 15:03:00 [facility] [place] Heart Rate 2019-08-25 15:03:00 [facility] Respitory Rate 2019-08-25 15:03:00 [facility] Temperature Oral (F) 2019-08-25 15:03:00 97.8 F [facility] Height 2019-08-25 15:03:00 182.8 cm [facility] Weight 2019-08-25 15:03:00 [facility] BMI Calculated 2019-08-25 15:03:00 [facility] Systolic (mm Hg) 2019-08-04 18:11:00 Zafar rial [place] Diastolic (mm Hg) 2019-08-04 18:11:00 [facility] [place] Heart Rate 2019-08-04 18:11:00 [facility] Respitory Rate 2019-08-04 18:11:00 [facility] [place] Temperature Oral (F) 2019-08-04 18:11:00 97.7 F [facility] Height 2019-08-04 18:11:00 182.88 cm [facility] Weight 2019-08-04 18:11:00 [facility] BMI Calculated 2019-08-04 18:11:00 [facility] [place] Height 2019-08-04 17:12:00 179 cm [facility] Weight 2019-08-04 17:12:00 [facility] BMI Calculated 2019-08-04 17:12:00 [facility] Systolic (mm Hg) 2019-08-04 17:12:00 Zafar rial [place] Diastolic (mm Hg) 2019-08-04 17:12:00 [facility] [place] Heart Rate 2019-08-04 17:12:00 [facility] Respitory Rate 2019-08-04 17:12:00 [facility] [place] Temperature Oral (F) 2019-08-04 17:12:00 98.2 F [facility] Systolic (mm Hg) 2019-07-21 16:00:00 Zafar rial [place] Diastolic (mm Hg) 2019-07-21 16:00:00 [facility] [place] Heart Rate 2019-07-21 16:00:00 [facility] Respitory Rate 2019-07-21 16:00:00 [facility] Temperature Oral (F) 2019-07-21 16:00:00 97.4 F [facility] Height 2019-07-21 16:00:00 179 cm [facility] Weight 2019-07-21 16:00:00 [facility] BMI Calculated 2019-07-21 16:00:00 [facility] [place] Systolic (mm Hg) 2019-06-23 17:35:00 [facility] Diastolic (mm Hg) 2019-06-23 17:35:00 [facility] [place] [facility] Rate 2019-06-23 17:35:00 [facility] Respitory Rate 2019-06-23 17:35:00 [facility] Temperature Oral (F) 2019-06-23 17:35:00 98.0 F [facility] Height 2019-06-23 17:35:00 171.5 cm [facility] Weight 2019-06-23 17:35:00 [facility] BMI Calculated 2019-06-23 17:35:00 [facility] [place] Systolic (mm Hg) 2019-06-23 15:48:00 Z[facility]ar [facility] Diastolic (mm Hg) 2019-06-23 15:48:00 [facility] [place] [facility] Rate 2019-06-23 15:48:00 [facility] Respitory Rate 2019-06-23 15:48:00 [facility] [place] Temperature Oral (F) 2019-06-23 15:48:00 98.8 F [facility] Height 2019-06-23 15:48:00 171.5 cm [facility] Weight 2019-06-23 15:48:00 [facility] BMI Calculated 2019-06-23 15:48:00 [facility] Systolic (mm Hg) 2019-06-09 14:22:00 [facility] Diastolic (mm Hg) 2019-06-09 14:22:00 [facility] Heart Rate 2019-06-09 14:22:00 [facility] Respitory Rate 2019-06-09 14:22:00 [facility] [place] Temperature Oral (F) 2019-06-09 14:22:00 98.4 F [facility] Height 2019-06-09 14:22:00 171.5 cm [facility] Weight 2019-06-09 14:22:00 [facility] BMI Calculated 2019-06-09 14:22:00 [facility] [place] Systolic (mm Hg) 2019-05-26 19:32:00 Zafar rial [place] Diastolic (mm Hg) 2019-05-26 19:32:00 [facility] [place] Heart Rate 2019-05-26 19:32:00 [facility] Respitory Rate 2019-05-26 19:32:00 [facility] [place] Temperature Oral (F) 2019-05-26 19:32:00 98.6 F [facility] Height 2019-05-26 19:32:00 171.5 cm [facility] Weight 2019-05-26 19:32:00 [facility] BMI Calculated 2019-05-26 19:32:00 [facility] [place] Systolic (mm Hg) 2019-05-26 18:10:00 Zafar rial [place] Diastolic (mm Hg) 2019-05-26 18:10:00 [facility] [place] Heart Rate 2019-05-26 18:10:00 [facility] Respitory Rate 2019-05-26 18:10:00 [facility] [place] Temperature Oral (F) 2019-05-26 18:10:00 97.9 F [facility] Height 2019-05-26 18:10:00 171.5 cm [facility] Weight 2019-05-26 18:10:00 [facility] BMI Calculated 2019-05-26 18:10:00 [facility] Systolic (mm Hg) 2019-05-12 16:53:00 [facility] Diastolic (mm Hg) 2019-05-12 16:53:00 [facility] [place] [facility] Rate 2019-05-12 16:53:00 [facility] Respitory Rate 2019-05-12 16:53:00 [facility] Temperature Oral (F) 2019-05-12 16:53:00 97.8 F [facility] Height 2019-05-12 16:53:00 182 cm [facility] Weight 2019-05-12 16:53:00 [facility] BMI Calculated 2019-05-12 16:53:00 [facility] [place] Systolic (mm Hg) 2019-04-28 15:02:00 [facility] Diastolic (mm Hg) 2019-04-28 15:02:00 [facility] Heart Rate 2019-04-28 15:02:00 [facility] Respitory Rate 2019-04-28 15:02:00 [facility] Temperature Oral (F) 2019-04-28 15:02:00 98.1 F [facility] Height 2019-04-28 15:02:00 182 cm [facility] Weight 2019-04-28 15:02:00 [facility] BMI Calculated 2019-04-28 15:02:00 [facility] Systolic (mm Hg) 2019-04-14 17:06:00 [facility] [place] Diastolic (mm Hg) 2019-04-14 17:06:00 [facility] [place] [facility] Rate 2019-04-14 17:06:00 [facility] Respitory Rate 2019-04-14 17:06:00 [facility] Temperature Oral (F) 2019-04-14 17:06:00 98.6 F [facility] Systolic (mm Hg) 2019-04-14 17:02:00 [facility] Diastolic (mm Hg) 2019-04-14 17:02:00 [facility] Heart Rate 2019-04-14 17:02:00 [facility] Respitory Rate 2019-04-14 17:02:00 [facility] [place] Temperature Oral (F) 2019-04-14 17:02:00 98.6 F [facility] Height 2019-04-14 17:02:00 182 cm [facility] Weight 2019-04-14 17:02:00 [facility] BMI Calculated 2019-04-14 17:02:00 [facility] Height 2019-04-14 15:25:00 182.8 cm [facility] Weight 2019-04-14 15:25:00 [facility] BMI Calculated 2019-04-14 15:25:00 [facility] [place] Systolic (mm Hg) 2019-03-31 15:52:00 [facility] Diastolic (mm Hg) 2019-03-31 15:52:00 [facility] Heart Rate 2019-03-31 15:52:00 [facility] Respitory Rate 2019-03-31 15:52:00 [facility] Temperature Oral (F) 2019-03-31 15:52:00 98.1 F [facility] Height 2019-03-31 15:52:00 182.8 cm [facility] Weight 2019-03-31 15:52:00 [facility] BMI Calculated 2019-03-31 15:52:00 [facility] Systolic (mm Hg) 2019-03-31 14:47:00 Z[facility]ar [facility] [place] Diastolic (mm Hg) 2019-03-31 14:47:00 [facility] Rate 2019-03-31 14:47:00 [facility] Respitory Rate 2019-03-31 14:47:00 [facility] Temperature Oral (F) 2019-03-31 14:47:00 97.6 F [facility] Height 2019-03-31 14:47:00 182.8 cm [facility] Weight 2019-03-31 14:47:00 [facility] BMI Calculated 2019-03-31 14:47:00 [facility] Systolic (mm Hg) 2019-03-23 23:19:00 [facility] Diastolic (mm Hg) 2019-03-23 23:19:00 [facility] Rate 2019-03-23 23:19:00 [facility] Height 2019-03-23 23:19:00 182.88 cm [facility] Weight 2019-03-23 23:19:00 [facility] BMI Calculated 2019-03-23 23:19:00 [facility] Systolic (mm Hg) 2019-03-17 18:06:00 [facility] Diastolic (mm Hg) 2019-03-17 18:06:00 [facility] Heart Rate 2019-03-17 18:06:00 [facility] Respitory Rate 2019-03-17 18:06:00 [facility] Temperature Oral (F) 2019-03-17 18:06:00 97.4 F [facility] Height 2019-03-17 18:06:00 182.8 cm [facility] Weight 2019-03-17 18:06:00 [facility] BMI Calculated 2019-03-17 18:06:00 [facility] [place] Systolic (mm Hg) 2019-03-12 16:25:00 Zafar rial [place] Diastolic (mm Hg) 2019-03-12 16:25:00 [facility] [place] Rate 2019-03-12 16:25:00 [facility] Height 2019-03-12 16:25:00 182.88 cm [facility] Weight 2019-03-12 16:25:00 [facility] BMI Calculated 2019-03-12 16:25:00 [facility] [place] Systolic (mm Hg) 2019-01-29 17:51:00 Z[facility]ar [facility] [place] Diastolic (mm Hg) 2019-01-29 17:51:00 [facility] Heart Rate 2019-01-29 17:51:00 [facility] Respitory Rate 2019-01-29 17:51:00 [facility] Temperature Oral (F) 2019-01-29 17:51:00 98.0 F [facility] Height 2019-01-29 17:51:00 183 cm [facility] Weight 2019-01-29 17:51:00 [facility] BMI Calculated 2019-01-29 17:51:00 [facility] Systolic (mm Hg) 2019-01-16 16:40:00 Z[facility]ar [facility] [place] Diastolic (mm Hg) 2019-01-16 16:40:00 [facility] Rate 2019-01-16 16:40:00 [facility] Respitory Rate 2019-01-16 16:40:00 [facility] Temperature Oral (F) 2019-01-16 16:40:00 97.7 F [facility] Height 2019-01-16 16:40:00 180.34 cm [facility] Weight 2019-01-16 16:40:00 [facility] BMI Calculated 2019-01-16 16:40:00 [facility] Systolic (mm Hg) 2018-12-26 16:56:00 Z[facility]ar [facility] [place] Diastolic (mm Hg) 2018-12-26 16:56:00 [facility] Heart Rate 2018-12-26 16:56:00 [facility] Respitory Rate 2018-12-26 16:56:00 [facility] Temperature Oral (F) 2018-12-26 16:56:00 97.7 F [facility] Height 2018-12-26 16:56:00 182 cm [facility] Weight 2018-12-26 16:56:00 [facility] BMI Calculated 2018-12-26 16:56:00 [facility] Systolic (mm Hg) 2018-12-04 20:58:00 [facility] Diastolic (mm Hg) 2018-12-04 20:58:00 [facility] Height 2018-12-04 20:58:00 185.42 cm [facility] Weight 2018-12-04 20:58:00 [facility] BMI Calculated 2018-12-04 20:58:00 [facility] Heart Rate 2018-12-04 20:58:00 [facility] BMI Calculated 2017-12-05 17:03:00 [facility] Weight 2017-12-05 17:03:00 [facility] Height 2017-12-05 17:03:00 185.42 cm [facility] Respitory Rate 2017-12-05 17:03:00 [facility] Rate 2017-12-05 17:03:00 [facility] Systolic (mm Hg) 2017-12-05 17:03:00 [facility]ar [facility] [place] Diastolic (mm Hg) 2017-12-05 17:03:00 [facility] Systolic (mm Hg) 2017-10-22 21:58:00 [facility] Diastolic (mm Hg) 2017-10-22 21:58:00 [facility] Systolic (mm Hg) 2017-10-22 21:31:00 [facility] Diastolic (mm Hg) 2017-10-22 21:31:00 [facility] Systolic (mm Hg) 2017-10-22 20:30:00 [facility] Diastolic (mm Hg) 2017-10-22 20:30:00 [facility] Respitory Rate 2017-10-22 19:30:00 [facility] Respitory Rate 2017-10-22 19:15:00 [facility] Respitory Rate 2017-10-22 19:00:00 [facility] Weight 2017-10-22 16:17:00 [facility] BMI Calculated 2017-10-22 16:17:00 [facility] Height 2017-10-22 16:17:00 185.42 cm [facility] Height 2017-10-08 15:40:00 185.42 cm [facility] BMI Calculated 2017-10-08 15:40:00 [facility] Weight 2017-10-08 15:40:00 [facility] Systolic (mm Hg) 2017-10-08 15:10:00 Z[facility]ar [facility] [place] Diastolic (mm Hg) 2017-10-08 15:10:00 [facility] Respitory Rate 2017-10-08 15:10:00 [facility] Weight 2017-05-23 21:30:00 [facility] BMI Calculated 2017-05-23 21:30:00 [facility] Respitory Rate 2017-05-23 21:30:00 [facility] Heart Rate 2017-05-23 21:30:00 [facility] Height 2017-05-23 21:30:00 185.42 cm [facility] Systolic (mm Hg) 2017-05-23 21:30:00 Z[facility]ar [facility] [place] Diastolic (mm Hg) 2017-05-23 21:30:00 [facility] Weight 2016-11-19 17:10:00 [facility] BMI Calculated 2016-11-19 17:10:00 [facility] Height 2016-11-19 17:10:00 185.42 cm [facility] BMI Calculated 2016-08-27 16:32:00 [facility] Weight 2016-08-27 16:32:00 [facility] Height 2016-08-27 16:32:00 185.42 cm [facility] Systolic (mm Hg) 2016-08-27 16:32:00 Z[facility]ar [facility] [place] Diastolic (mm Hg) 2016-08-27 16:32:00 [facility] Respitory Rate 2016-08-27 16:32:00 [facility] Heart Rate 2016-08-27 16:32:00 [facility] BMI Calculated 2016-08-02 19:14:00 [facility] Weight 2016-08-02 19:14:00 [facility] Height 2016-08-02 19:14:00 185.42 cm [facility] Systolic (mm Hg) 2016-08-02 19:14:00 [facility] Diastolic (mm Hg) 2016-08-02 19:14:00 [facility] Respitory Rate 2016-08-02 19:14:00 [facility] Heart Rate 2016-08-02 19:14:00 [facility] BMI Calculated 2016-06-18 17:55:00 [facility] Weight 2016-06-18 17:55:00 [facility] Height 2016-06-18 17:55:00 185.42 cm [facility] Weight 2016-04-26 20:00:00 [facility] BMI Calculated 2016-04-26 20:00:00 [facility] Height 2016-04-26 20:00:00 185.42 cm [facility] Heart Rate 2016-04-26 20:00:00 [facility] Respitory Rate 2016-04-26 20:00:00 [facility] Systolic (mm Hg) 2016-04-26 20:00:00 Z[facility]ar [facility] Diastolic (mm Hg) 2016-04-26 20:00:00 [facility] Respitory Rate 2016-02-08 18:12:00 [facility] [place] Systolic (mm Hg) 2016-02-08 18:12:00 Z[facility] Diastolic (mm Hg) 2016-02-08 18:12:00 [facility] [place] Temperature Oral (F) 2016-02-08 18:12:00 97.6 F [facility] Heart Rate 2016-02-08 18:12:00 [facility] Respitory Rate 2016-02-08 13:58:00 [facility] Systolic (mm Hg) 2016-02-08 13:58:00 Zafar rial [place] Diastolic (mm Hg) 2016-02-08 13:58:00 [facility] [place] Temperature Oral (F) 2016-02-08 13:58:00 97.8 F [facility] Heart Rate 2016-02-08 13:58:00 [facility] Systolic (mm Hg) 2016-02-08 09:59:00 Zafar [facility] [place] Diastolic (mm Hg) 2016-02-08 09:59:00 [facility] Heart Rate 2016-02-08 09:59:00 [facility] Temperature Oral (F) 2016-02-08 09:59:00 97.6 F [facility] Respitory Rate 2016-02-08 09:59:00 [facility] Height 2016-02-08 05:58:00 185.42 cm [facility] Weight 2016-02-08 05:58:00 [facility] BMI Calculated 2016-02-08 05:58:00 [facility] Weight 2016-02-08 01:29:00 [facility] BMI Calculated 2016-02-08 01:29:00 [facility] Height 2016-02-08 01:29:00 185.42 cm [facility] Systolic (mm Hg) 2016-01-28 16:37:00 Z[facility] Diastolic (mm Hg) 2016-01-28 16:37:00 [facility] Heart Rate 2016-01-28 16:37:00 [facility] Respitory Rate 2016-01-28 16:37:00 [facility] Temperature Oral (F) 2016-01-28 16:37:00 98.1 F [facility] Temperature Oral (F) 2016-01-28 12:39:00 97.9 F [facility] Heart Rate 2016-01-28 12:39:00 [facility] Respitory Rate 2016-01-28 12:39:00 [facility] Systolic (mm Hg) 2016-01-28 12:39:00 Zafar [facility] Diastolic (mm Hg) 2016-01-28 12:39:00 [facility] [place] Respitory Rate 2016-01-28 11:37:00 [facility] Temperature Oral (F) 2016-01-28 09:58:00 97.9 F [facility] Heart Rate 2016-01-28 09:08:00 [facility] Systolic (mm Hg) 2016-01-28 09:08:00 Zafar rial [place] Diastolic (mm Hg) 2016-01-28 09:08:00 [facility] Height 2016-01-21 19:30:00 185.42 cm [facility] Weight 2016-01-21 19:30:00 [facility] BMI Calculated 2016-01-21 19:30:00 Giselle swenson [facility] Procedures Procedure Date / Time Performing Clinician Source Performed Colonoscopy 2018-05-06 00:00:00 Jamee whitfield Renal biopsy; percutaneous, 2017-10-22 18:26:15 Jamee Charles by trocar or needle [facility] Finger operation [facility] Jairo n Mandible operation [facility] Leni nj Shoulder [facility] CAT scan [facility] Surgery care<sup>2</sup> [facility] COVID-19 [facility] vaccination<sup>1</sup> Encounters Start End Encounter Admission Attending Care Care Encounter Source Date/Time Date/Time Type Type Clinicians Facility Department ID 2020-10-10 Outpatient ISI [facility] [id number] [place] 01:06:15 Health 2020-09-12 Outpatient [facility]I [facility] [id number] [place] 01:04:44 Health 2020-11-10 2020-12-10 Recurring nullFlavo [facility] Infusion [id number] [facility] 17:58:00 04:59:00 r Therapy 16 l (INFT) [place] 2020-11-10 2020-12-09 Outpatient Isi Harp [facility] [id number] 12:58:00 23:59:00 H 16 2020-11-22 2020-11-22 [place] [id number] [facility] 14:30:00 14:30:00 Pre-Reg r Primary 04 l [facility] 2020-11-22 2020-11-22 Outpatient Shiver, [facility] [id number] 09:30:00 09:30:00 Marie Batres 2020-11-10 2020-11-10 Outpatient [id number] 12:58:00 12:58:00 2020-10-29 2020-10-30 Outpt Diag nullFlavo [facility] [id number] [facility] 17:07:00 04:59:00 Services r Outpatient 22 l Imaging [facility] 2020-10-29 2020-10-29 Outpatient Isi Harp [facility] [id number] 12:07:00 23:59:00 H 22 2020-10-13 2020-10-13 Ambulatory nullFlavo [facility] [id number] [facility] 20:30:00 20:30:00 Pre-Reg r Primary 03 l [facility] 2020-10-13 2020-10-13 Outpatient Shiver, MG [facility] [id number] 15:30:00 15:30:00 Marie Batres 2020-09-08 2020-10-08 Recurring nullFlavo [facility] Infusion [id number] [facility] 14:48:00 04:59:00 r Therapy 15 l (INFT) [place] 2020-09-08 2020-10-07 Outpatient Ludivina, Putao [facility] [id number] 09:48:00 23:59:00 15 2020-09-08 2020-09-08 Outpatient [id number] 09:48:00 09:48:00 2020-09-01 2020-09-02 Outpatient nullFlavo [facility] [id number] [facility] 17:14:00 04:59:00 r Disease 29 l [facility] 2020-09-01 2020-09-01 [facility] [id number] 12:14:00 23:59:00 Osmin Van 2020-09-01 2020-09-01 Outpatient [facility] [id number] 12:14:00 12:14:00 2020-08-19 2020-08-20 Outpt Diag nullFlavo [facility] [id number] [facility] 14:15:00 04:59:00 Services r Outpatient 21 l Imaging [facility] Charles 2020-08-19 2020-08-19 Outpatient Isi Harp [facility] [id number] 09:15:00 23:59:00 H 21 2020-07-14 2020-08-13 Recurring nullFlavo Oncology [id number] [facility] 17:49:00 04:59:00 r 14 edvin Charles 2020-07-14 2020-08-12 Outpatient Isi Harp [facility] [id number] 11:49:00 23:59:00 H 14 2020-08-10 2020-08-11 Outpatient nullFlavo [facility] [id number] [facility] 14:00:00 04:59:59 [facility] 2020-08-10 2020-08-10 Outpatient Elhor [facility] [id number] 09:00:00 23:59:59 GbitoRenae Akuvi Song 2020-07-14 2020-07-14 Outpatient [id number] 11:49:00 11:49:00 2020-05-31 2020-06-30 Recurring nullFlavo Oncology [id number] [facility] 17:49:00 05:59:00 r 13 edvin Charles 2020-05-31 2020-06-29 Outpatient Isi Harp [facility] [id number] 11:49:00 23:59:00 H 13 2020-05-31 2020-05-31 Outpatient [id number] 11:49:00 11:49:00 2020-03-10 2020-04-09 Recurring nullFl[facility] Oncology [id number] [facility] 18:13:00 05:59:00 r 12 edvin FarrarLanse 2020-03-10 2020-04-08 Outpatient Isi Harp [facility] [id number] 12:13:00 23:59:00 H 12 2020-04-05 2020-04-06 Outpt Diag nullFlavo [facility] [id number] [facility] 20:03:00 05:59:00 Services r Outpatient 20 l Imaging [facility] 2020-04-05 2020-04-05 Outpatient Isi Harp [facility] [id number] 14:03:00 23:59:00 H 20 2020-03-10 2020-03-10 Outpatient [id number] 12:13:00 12:13:00 2020-01-14 2020-02-13 Recurring nullFl[facility] Oncology [id number] [facility] 14:40:00 04:59:00 r 11 l [place] 2020-01-14 2020-02-12 Outpatient Isi Harp [facility] [id number] 09:40:00 23:59:00 H 11 2020-01-09 2020-01-10 Outpt Diag nullFlavo [facility] [id number] [facility] 17:56:00 04:59:00 Services r Outpatient 19 l Imaging [place] 2020-01-09 2020-01-09 Outpatient Isi Harp [facility] [id number] 12:56:00 23:59:00 H 19 2019-11-19 2019-12-19 Recurring nullFlavo Oncology [id number] [facility] 17:35:00 04:59:00 r 10 l [place] 2019-11-19 2019-12-18 Outpatient Isi Harp [facility] [id number] 12:35:00 23:59:00 H 10 2019-10-20 2019-11-19 Recurring nullFl[facility] Oncology [id number] [facility] 13:45:00 04:59:00 r 09 l [place] 2019-10-20 2019-11-18 Outpatient Isi Harp [facility] [id number] 08:45:00 23:59:00 H 09 2019-11-17 2019-11-18 Outpt Diag nullFlavo [facility] [id number] [facility] 13:18:00 04:59:00 Services r Outpatient [address] [facility] 2019-11-17 2019-11-17 Outpatient Isi Harp [facility] [id number] 08:18:00 23:59:00 H 18 2019-10-20 2019-10-20 Outpatient [facility] [id number] 08:45:00 08:45:00 2019-08-25 2019-09-24 Recurring nullFlavo Oncology [id number] [facility] 12:28:00 04:59:00 r 08 l [place] 2019-08-25 2019-09-23 Outpatient Isi Harp [facility] [id number] 07:28:00 23:59:00 H 08 2019-09-15 2019-09-17 Phone nullFlavo [facility] [id number] [facility] 21:48:05 04:59:59 Message r Disease 03 l Center [place] 2019-09-15 2019-09-16 Outpatient [id number] 16:48:05 23:59:59 03 2019-08-25 2019-08-25 Outpatient [facility] [id number] 07:28:00 07:28:00 2019-07-07 2019-08-06 Recurring nullFlavo [facility] Infusion 34 [id number] [facility] 16:04:00 04:59:00 r Therapy 07 l (INFT) [place] 2019-07-07 2019-08-05 Outpatient Isi Harp [facility] [id number] 10:04:00 23:59:00 H 07 2019-07-20 2019-07-22 Phone nullFlavo Oncology [id number] [facility] 18:08:44 04:59:59 Message r 02 l [place] 2019-07-20 2019-07-21 Outpatient [id number] 13:08:44 23:59:59 2019-07-18 2019-07-19 Outpt Diag nullFlavo [facility] [id number] Mem[facility] 14:19:00 04:59:00 Services r Outpatient 16 l Imaging [facility] 2019-07-18 2019-07-18 Outpatient Isi Harp [facility] [id number] 09:19:00 23:59:00 H 16 2019-07-07 2019-07-07 [facility]patient [facility] [id number] [facility] 10:04:00 10:04:00 2019-05-26 2019-06-25 Recurring nullFlavo [facility] Infusion 34 [id number] Memoria 15:10:00 05:59:00 r Therapy 05 l (INFT) Melvin 2019-05-26 2019-06-24 Outpatient Isi Harp [facility] [id number] 09:10:00 23:59:00 H 05 2019-06-19 2019-06-20 Outpt Diag nullFlavo [facility] [id number] Memoria 16:32:00 05:59:00 Services r Outpatient 15 l Imaging Melvin [facility] 2019-06-19 2019-06-19 [id number] 10:32:00 23:59:00 H 15 2019-05-12 2019-06-11 Recurring nullFlavo [facility] [id number] Memoria 14:55:00 05:59:00 r 06 l Melvin 2019-05-12 2019-06-10 Outpatient Isi Harp [facility] [id number] 08:55:00 23:59:00 H 06 2019-05-28 2019-05-29 Outpt Diag nullFlavo [facility] [id number] Memoria 16:38:00 05:59:00 Services r Outpatient [address] [facility] 2019-05-28 2019-05-28 [id number] 10:38:00 23:59:00 H 14 2019-05-12 2019-05-12 [id number] 08:55:00 08:55:00 2019-04-14 2019-05-06 Recurring nullFlavo [facility] Infusion 34 [id number] Memoria 14:53:00 02:00:00 r Therapy 04 l (INFT) Melvin 2019-04-14 2019-05-05 Outpatient Isi Harp [facility] [id number] 08:53:00 20:00:00 H 04 2019-04-27 2019-04-28 Outpt Diag nullFlavo [facility] [id number] Memoria 19:27:00 05:59:00 Services r Outpatient [address] [facility] 2019-04-27 2019-04-27 Outpatient Isi Harp [facility] [id number] 13:27:00 23:59:00 H 13 2019-03-23 2019-04-22 Recurring [facility]Flavo [facility] [id number] Memoria 20:23:00 05:59:00 r Lanse 03 l [facility] 2019-03-23 2019-04-21 Outpatient Isi Harp [facility] [id number] 14:23:00 23:59:00 H 2019-04-14 2019-04-14 Outpatient [facility] [id number] [facility] 08:53:00 08:53:00 2019-04-10 2019-04-11 Outpt Diag nullFlavo [facility] [id number] Memoria 15:06:00 05:59:00 Services r Outpatient 10 l [facility] 2019-04-10 2019-04-10 [id number] 09:06:00 23:59:00 H 10 2019-04-09 2019-04-10 Outpt Diag nullFlavo [facility] [id number] Memoria 13:43:00 05:59:00 Services r Outpatient 11 l [facility] 2019-04-09 2019-04-09 Outpatient Sharon MHOIP OIP [id number] 07:43:00 23:59:00 [facility] 11 2019-03-03 2019-04-02 Recurring nullFlavo Oncology [id number] Memoria 14:35:00 05:59:00 r 02 [facility] 2019-03-03 2019-04-01 Outpatient Isi Harp [facility] [id number] 09:35:00 23:59:00 H 2019-03-23 2019-03-23 Outpatient [facility] [id number] [facility] 14:23:00 14:23:00 2019-03-12 2019-03-13 Outpatient nullFlavo [facility] [id number] Memoria 16:21:00 05:59:00 r Disease 20 l [facility] 2019-03-12 2019-03-12 Outpatient [facility] [id number] 10:21:00 23:59:00 Celina Van 2019-03-12 2019-03-12 Outpatient [facility] [id number] MHH 10:21:00 10:21:00 2019-03-04 2019-03-04 Bedded nullFlavo [facility] [id number] Memoria 11:51:00 19:00:00 Outpatient r Lanse 25 [facility] 2019-03-04 2019-03-04 Outpatient [facility] [id number] 06:51:00 14:00:00 VanHeidi de leon Ez 2019-03-04 2019-03-04 Outpatient MH MED [id number] MH 06:51:00 06:51:00 2019-03-03 2019-03-03 [facility] [id number] [facility] 09:35:00 09:35:00 2019-01-29 2019-02-28 Recurring nullFlavo Oncology [id number] Memoria 17:00:00 04:59:00 r 01 edvin Lanse 2019-01-29 2019-02-27 Outpatient Therese Isi [facility] [id number] 12:00:00 23:59:00 H 2019-01-29 2019-01-29 [id number] [facility] 12:00:00 12:00:00 2018-12-26 2019-01-25 Recurring nullFlavo Oncology [id number] Memoria 16:20:00 04:59:00 r Lloyd pardo Lanse 2018-12-26 2019-01-24 Outpatient Harp, Isi [facility] [id number] 11:20:00 23:59:00 H 2019-01-20 2019-01-20 Bedded nullFlavo [facility] [id number] Memoria 18:36:00 21:00:00 Outpatient josé antonio Charles 22 [facility] 2019-01-20 2019-01-20 Outpatient [facility] [id number] 13:36:00 16:00:00 RehanJuan Ez 2019-01-20 2019-01-20 Outpatient [facility] [id number] [facility] 13:36:00 13:36:00 2019-01-06 2019-01-08 Phone nullFlavo Oncology [id number] Memoria 15:49:34 04:59:59 Message r Niru pardo Lanse 2019-01-06 2019-01-07 Outpatient [id number] 10:49:34 23:59:59 2018-12-26 2018-12-26 Outpatient [facility] [id number] [facility] 11:20:00 11:20:00 2018-12-10 2018-12-10 Outpt Diag nullFlavo [facility] [id number] Memoria 00:26:00 04:59:00 Services r Outpatient [address] [facility] 2018-12-09 2018-12-09 Outpatient [facility] [id number] 19:26:00 23:59:00 VanWilner de leon Ez 2018-12-04 2018-12-05 Outpatient nullFlavo [facility] [id number] Memoria 20:57:00 04:59:00 r Disease 21 l [facility] 2018-12-04 2018-12-04 Outpatient [facility] [id number] 15:57:00 23:59:00 VanSheri de leon Ez 2018-12-04 2018-12-04 Outpatient [facility] [id number] [facility] 15:57:00 15:57:00 2018-03-26 2018-03-27 Outpt Diag nullFlavo [facility] [id number] Memoria 16:38:00 05:59:00 Services r Outpatient 07 l [facility] 2018-03-26 2018-03-26 Outpatient Ramon, OIP [facility] [id number] 10:38:00 23:59:00 [facility] 2018-03-10 2018-03-12 Phone nullFlavo Digest[facility] [id number] Memoria 15:19:00 05:59:59 Message r Disease 00 l [facility] 2018-03-10 2018-03-11 Outpatient [id number] 09:19:00 23:59:59 2018-03-10 2018-03-10 Outpt Diag nullFlavo [facility] [id number] Memoria 15:15:00 15:15:00 Services r Outpatient [address] [facility] 2018-03-10 2018-03-10 Outpatient [facility] [id number] 09:15:00 09:15:00 RehanGeminian 2017-12-24 2017-12-24 Outpt Diag nullFlavo [facility] [id number] Memoria 15:00:00 15:00:00 Services r Outpatient 05 l [facility] [place] adrian Bhandari 2017-12-24 2017-12-24 Outpatient [place] [id number] 10:00:00 10:00:00 Rehan Zena Nice Ez 2017-12-05 2017-12-06 Outpatient [facility]Flavo [facility] [id number] Memoria 16:12:00 04:59:00 r Melvin [address] [facility] 2017-12-05 2017-12-05 Outpatient [facility] [id number] 11:12:00 23:59:00 Tierra [place] [facility] 2017-10-22 2017-10-23 Bedded nullFlavo [facility] [id number] Memoria 15:22:00 00:00:00 Outpatient r Melvin 18 [facility] 2017-10-22 2017-10-22 Outpatient Shawn [facility] [id number] 10:22:00 19:00:00 Mckenzie R 18 2017-10-08 2017-10-08 Bedded nullFlavo [facility] [id number] Memoria 13:30:00 16:00:00 Outpatient r Melvin 17 [facility] 2017-10-08 2017-10-08 Outpatient Shawn [facility] [id number] 08:30:00 11:00:00 Mckenzie R 17 2017-08-07 2017-08-08 Outpt Diag nullFlavo [facility] [id number] Memoria 17:52:00 04:59:00 Services r Outpatient [address] [facility] 2017-08-07 2017-08-07 Outpatient Shawn [facility] [id number] 12:52:00 23:59:00 Mckenzie R 03 2017-07-08 2017-07-08 Outpatient nullFlavo [facility] [id number] Memoria 16:00:00 16:00:00 r Melvin 15 l [facility] 2017-07-08 2017-07-08 Outpatient Ramon [facility] [id number] 10:00:00 10:00:00 Soni 15 2017-06-11 2017-06-11 Bedded nullFlavo [facility] [id number] Memoria 17:12:00 21:25:00 Outpatient josé antonio Melvin 12 [facility] 2017-06-11 2017-06-11 Outpatient Nam [facility] [id number] 11:12:00 15:25:00 [place], 12 [place] 2017-05-23 2017-05-24 Outpatient nullFlavo [facility] [id number] Memoria 21:16:00 05:59:00 r Melvin 09 l [facility] 2017-05-23 2017-05-23 Outpatient Nam [facility] [id number] 15:16:00 23:59:00 Rehan, 09 [place] 2017-05-23 2017-05-23 Outpatient Nam [facility] [id number] 15:16:00 23:59:00 Rehan, 09 [place] 2016-12-11 2016-12-12 Outpatient nullFlavo [facility] [id number] Memoria 16:29:00 04:59:00 r Melvin 11 [facility] 2016-12-11 2016-12-11 Outpatient Ramon [facility] [id number] 11:29:00 23:59:00 Joserebecca 11 2016-11-19 2016-11-20 Outpatient [facility]Flavo [facility] [id number] Memoria 16:59:00 04:59:00 josé antonio Charles 07 edvin [facility] 2016-11-19 2016-11-19 Outpatient Gregor [facility] [id number] 11:59:00 23:59:00 Sohaib 2016-08-27 2016-08-28 Outpatient [facility]Flavo [facility] [id number] Memoria 16:29:00 04:59:00 josé antonio Charles 04 l [facility] 2016-08-27 2016-08-27 Outpatient Gregor [facility] [id number] 11:29:00 23:59:00 Sohaib 04 2016-08-02 2016-08-03 Outpatient nullFlavo [facility] [id number] Memoria 19:06:00 04:59:00 r Melvin 06 l [facility] 2016-08-02 2016-08-02 Outpatient Ramon [facility] [id number] 14:06:00 23:59:00 Glenty 06 2016-06-18 2016-06-19 Outpatient nullFlavo [facility] [id number] Memoria 17:52:00 05:59:00 r Melvin 03 l [facility] 2016-06-18 2016-06-18 Outpatient Gregor [facility] [id number] 11:52:00 23:59:00 Sohaib 03 2016-05-22 2016-05-22 Bedded nullFlavo [facility] [id number] Memoria 19:48:00 21:00:00 Outpatient r Melvin 02 l [facility] 2016-05-22 2016-05-22 Outpatient [facility] [id number] 13:48:00 15:00:00 Rehan, 02 [place] 2016-05-08 2016-05-09 Outpt Diag nullFlavo [facility] [id number] Memoria 18:37:00 05:59:00 Services r Outpatient 01 l [facility] 2016-05-08 2016-05-08 [facility] [id number] 12:37:00 23:59:00 Rehan, 01 [place] 2016-04-26 2016-04-27 Outpatient nullFlavo [facility] [id number] Memoria 19:55:00 05:59:00 r Melvin 01 l [facility] 2016-04-26 2016-04-26 Outpatient [facility] [id number] 13:55:00 23:59:00 Rehan, 01 [place] 2016-02-08 2016-02-08 Observatio nullFlavo [facility] [id number] Memoria 01:29:00 21:45:00 n josé antonio Charles 78 l [facility] 2016-02-07 2016-02-08 Outpatient Pink [facility] [id number] 20:29:00 16:45:00 Castro Valleyleigh Lua 2016-01-21 2016-01-28 Inpatient nullFlavo [facility] [id number] Memoria 19:13:00 19:45:00 r Lanse 61 l [facility] 2016-01-21 2016-01-28 TANIA Granados [facility] [id number] 14:13:00 14:45:00 Timchin Escoto Results Test Description Test Time Test Comments Results Result Comments Source CHEM PANEL 2020-12-08 177 [facility] 16:32:00 CHEM PANEL 2020-12-08 32 [facility] 16:32:00 CHEM PANEL 2020-12-08 2.27 [facility] 16:32:00 CHEM PANEL 2020-12-08 137 [facility] 16:32:00 CHEM PANEL 2020-12-08 3.9 [facility] 16:32:00 CHEM PANEL 2020-12-08 105 [facility] 16:32:00 CHEM PANEL 2020-12-08 21 [facility] 16:32:00 CHEM PANEL 2020-12-08 14.9 [facility] 16:32:00 CHEM PANEL 2020-12-08 8.1 [facility] 16:32:00 CHEM PANEL 2020-12-08 16:32:00 Test Item Value Reference Range Interpretation Comme nts B/C Ratio (test code = B/C Ratio) 14 1 6-25 [facility] [id number] 16:32:006.2[facility]ann[facility] PANEL 2020-12-08 16:32:002.5[facility] XTLGB9577-53-76 16:32:003.7[facility]CHE[facility] NDCVQ5321-91-76 16:32:00 Test Item Value Reference Range Interpretation Comments A/G Ratio (test code = A/G Ratio) 0.7 1 0.7-1.6 [facility] FYMUM5747-58-28 16:32:0021[facility]annCHEM PANEL 2020-12-08 16:32:79929Koljrqey HermannCHEM GSAIB6336-01-39 16:32:001.1[facility]annCHE[facility] BVACE0034-48-90 16:32:0029[facility]annCHE[facility] EIYYH3922-27-29 16:32:0019[facility]annCHE[facility] KWYHA3553-14-99 16:32:001.7[facility]annCHE[facility] PQJEX6260-33-77 16:32:003.4[facility] YongmerFFSBEMKPGU6751-53-97 16:32:006.8 [facility] FaissxoGZNXYENEIY7039-64-14 16:32:004.01[facility]annHEMATOLOGY 2020-12-08 16:32:0012.5[facility] IqppchfPRIJNQPNFT4954-49-96 16:32:0036.6[facility] QrtubczJGSTSGJSXW7338-83-56 16:32:0091.1[facility] JlbcsdsAASFWKCDWJ9274-79-34 16:32:00 Test Item Value Reference Range Interpretation Comments MCH (test code = MCH) 31.2 pg 27.0-31.0 [facility] YktwiazAZAULMGKWU7978-26-45 16:32:0034.2[facility]annHEMATOLOGY 2020-12-08 16:32:0013.7[facility] RpfbbcqZLEZJCJIRD6181-84-82 16:32:37894Nvlmjlny FtgcjfdAJPUVKYRYO2051-90-78 16:32:007.1[facility] CqbidjuDACPUZSLLS7546-62-27 16:32:00 Test Item Value Reference Range Interpretation Comments PT (test code = PT) 14.3 s 12.0-14.7 [facility] MiaeociZDSNSKMLDB8402-75-56 16:32:00 Test Item Value Reference Range Interpretation Comments INR (test code = INR) 1.12 1 0.85-1.17 [facility] DbgrxgdOKJRBGVBJI0946-09-59 16:32:00 Test Item Value Reference Range Interpretation Comments PTT (test code = PTT) 31.6 s 22.9-35.8 [facility] QqmmfjiPGEWTINBXG9862-97-81 16:32:0068.4[facility]ann[facility]MATOLOGY 2020-12-08 16:32:0021.8[facility] AreoqctYOLYVLNITH3624-73-95 16:32:006.1[facility] ZsfdihmUZUBPLCSRV1738-66-83 16:32:002.4[facility] SqmejhzDPBIJWSLTQ2569-30-58 16:32:001.3[facility] SfgkrexATQSGQRQUG3223-23-36 16:32:004.7[facility] TWSSGGVLXX5955-45-27 16:32:001.5[facility] BbhptljRZCMWBZBWG5055-54-09 16:32:000.4 [facility] XdxhyqfFHADSREPIY2939-62-85 16:32:000.2[facility]annHEMATOLOGY 2020-12-08 16:32:000.1[facility] HermannTUMOR FUAZQGD9757-50-18 16:32:003.4 [facility]annCHE[facility] OVIPZ9360-49-88 18:11:71958Iprerotc HermannCHEM PANEL 2020-11-11 18:11:0031[facility]annCHEM UILLM1380-46-14 18:11:002.45[facility]annCHE[facility] RKHGY2888-40-10 18:11:87023Wcsbgfff HermannCHEM FDTAS4696-90-68 18:11:004.0[facility]annCHE[facility] VFHYQ7700-86-44 18:11:48491Wbozqgqr HermannCHEM XKTRE3167-07-43 18:11:0021[facility]annCHE[facility] YXKEM5537-89-50 18:11:008.5 [facility] DBXUJ3632-84-98 18:11:006.3[facility]annCHEM PANEL 2020-11-11 18:11:002.7[facility]annCHE[facility] LPQKR0281-79-52 18:11:0019[facility]annCHE[facility] JTDIF4826-61-60 18:11:0018[facility]annCHEM WIHIA7254-94-85 18:11:47834Bkqpkcdm HermannCHEM HYNYP4091-54-31 18:11:000.6[facility]annCHEM TAYAW2522-22-22 18:11:0014.0[facility]annCHE[facility] MGRLP0012-35-25 18:11:00 Test Item Value Reference Range Interpretation Comments B/C Ratio (test code = B/C Ratio) 13 1 6-25 [facility] IKMHC6115-48-18 18:11:003.6[facility]annCHEM PANEL 2020-11-11 18:11:00 Test Item Value Reference Range Interpretation Comments A/G Ratio (test code = A/G Ratio) 0.8 1 0.7-1.6 [facility] LULVL0640-05-89 18:11:0026[facility] HermannCHEM PANEL 2020-11-11 18:11:001.8[facility]annCHEM CNTKB1838-13-05 18:11:002.9[facility] RmbffvkDKOYGGSSQP6581-32-69 18:11:006.0[facility] GemrmhzPHDDCAKVTE5235-83-86 18:11:003.63[facility]orial BptmdxcIZNDAZYIOY0018-59-84 18:11:0011.4[facility] Lanse RRTHTXWSPU3223-20-74 18:11:0033.6[facility] RifffroCYOTPXWDTY7587-65-17 18:11:00 92.8[facility]orial FhwfiooVULNRJXZGR2218-14-26 18:11:00 Test Item Value Reference Range Interpretation Comments MCH (test code = MCH) 31.5 pg 27.0-31.0 [facility] LijdxbaKPSWOMSQBT7062-44-75 18:11:0034.0[facility]annHEMATOLOGY 2020-11-11 18:11:0014.1[facility] DtylqoqVWDNHTOWCU1420-85-56 18:11:49221Zbdjrqzz YsjjzzgVPMGHKMTBQ6230-18-38 18:11:007.7[facility] RiipnrrZJXOWYZNAK4072-69-31 18:11:0063.8[facility] JynbzboDBSIGCMYTM6482-88-56 18:11:0024.4[facility] Melvin PNAVDUXEYW2132-33-74 18:11:008.0[facility] TnxfompLFLBFHTPLG4210-36-70 18:11:002.6 [facility] UzuxvtmAQDKNLLXUE1053-00-09 18:11:001.2[facility]annHEMATOLOGY 2020-11-11 18:11:003.9[facility] OxhtlegVBOALQNVHA6214-26-95 18:11:001.5[facility] ZmnzaztPSCKQTPHQU3538-56-25 18:11:000.5[facility] XcqcxsaRETOOUBQCR1707-34-15 18:11:000.2[facility] AkrfnbjPLDLHTVVSK4026-23-48 18:11:000.1[facility] HermannTUMOR QODPBUV3347-20-45 18:11:002.8[facility] HermannCHEM WYESY9277-16-03 14:14:26649 [facility]annCHE[facility] FBOCN8641-07-63 14:14:0025[facility] HermannCHEM PANEL 2020-10-06 14:14:002.21[facility] HermannCHEM EDKEQ3052-78-21 14:14:96322Rsgitzgd HermannCHEM AVAMN2708-80-02 14:14:004.1[facility]annCHEM CCMRG1845-88-01 14:14:94022Rinsjhwx HermannCHEM ZMLVI7880-08-50 14:14:0022[facility] HermannCHEM NYEIM4254-19-12 14:14:007.6[facility]annCHEM KQKYU7035-88-09 14:14:005.6 [facility] HermannCHEM YROGS1389-55-19 14:14:002.4[facility] HermannCHEM PANEL 2020-10-06 14:14:0016[facility] HermannCHEM ORSPU9195-26-70 14:14:0017[facility] HermannCHEM QYJSW8089-84-99 14:14:21876Jtdmoyyv HermannCHEM UXNRI8694-87-89 14:14:000.9[facility] HermannCHEM HLNMA5735-13-74 14:14:0012.1[facility]annCHEM YJPBF7192-65-93 14:14:00 Test Item Value Reference Range Interpretation Comments B/C Ratio (test code = B/C Ratio) 11 1 6-25 [facility] RRHFK9065-73-22 14:14:003.2[facility]annCHEM PANEL 2020-10-06 14:14:00 Test Item Value Reference Range Interpretation Comments A/G Ratio (test code = A/G Ratio) 0.8 1 0.7-1.6 [facility] NKRWY8684-40-67 14:14:0030[facility] HermannCHEM PANEL 2020-10-06 14:14:001.6[facility]annCHEM IHWBE7318-85-86 14:14:002.7[facility]orial BpfhkskJREZWJAJNQ2010-67-08 14:14:005.1[facility]orial GchvpodHWKNHQYZYL8716-85-92 14:14:003.35[facility] YxhxdduBSASZNUMDP2788-90-85 14:14:0010.4[facility] JIXFOXCWJO6615-55-22 14:14:0030.7[facility] OpuehlkPLOBUBUSKN1564-10-21 14:14:00 91.7[facility] MqpglllXJHDTUTEOD8712-42-77 14:14:00 Test Item Value Reference Range Interpretation Comments MCH (test code = MCH) 31.2 pg 27.0-31.0 Memorial DhzwgplLPTDDQOWAR2120-44-04 14:14:0034.0[facility] HermannHEMATOLOGY 2020-10-06 14:14:0013.6[facility] UucxzcbHGKTXOYLCH3846-89-52 14:14:0088Memorial DgyvvelAVVIQZGLZJ4719-24-85 14:14:007.6[facility] UqrludcGXBSZJZEQV4251-84-67 14:14:00 Test Item Value Reference Range Interpretation Comments PTT (test code = PTT) 30.1 s 22.9-35.8 Memorial SgdpkfrUCESAPGXTE3881-44-06 14:14:00 Test Item Value Reference Range Interpretation Comments PT (test code = PT) 15.4 s 12.0-14.7 [facility] QvnrrflNGMSAMLGSM8158-48-08 14:14:00 Test Item Value Reference Range Interpretation Comments INR (test code = INR) 1.24 1 0.85-1.17 Memorial IsnqdekLENAGCCRYU5028-24-23 14:14:0060.9[facility] HermannHEMATOLOGY 2020-10-06 14:14:0024.8[facility] DmxqkupCVQUNOSLUB8019-37-68 14:14:008.9[facility] CqjpnneSCDRUSWFOZ0295-79-65 14:14:004.4[facility] SvzfpxxJPMGMQRKZE5499-90-05 14:14:001.0[facility] TsixvpgGCRNCWBKXI0334-38-33 14:14:003.1[facility] ZNOHTHUGOH2928-21-45 14:14:001.3[facility] ZdyluqwDKDOMSNSUU8660-98-89 14:14:000.5 Memorial TebjgxjMDRSFEUMYU3086-52-92 14:14:000.2[facility] HermannHEMATOLOGY 2020-10-06 14:14:000.1[facility] HermannTUMOR TNBGPPH8281-00-63 14:14:002.5 [facility]annCHEM HHYKU3278-67-00 15:24:83113Tdpkaglf HermannCHEM PANEL 2020-09-08 15:24:0025[facility] HermannCHEM SMXBO4214-82-89 15:24:002.15[facility] HermannCHEM HBHAG1215-42-72 15:24:99132Wkucxurx HermannCHEM QZEWN6125-04-83 15:24:004.0[facility] HermannCHEM MHPFB3755-93-77 15:24:75848Bvquzfni HermannCHEM UMGNC2521-61-45 15:24:0023[facility] HermannCHEM RMTWK9861-92-02 15:24:008.2 [facility]annCHE[facility] UNLQB3564-06-60 15:24:006.3[facility] HermannCHEM PANEL 2020-09-08 15:24:002.6[facility] HermannCHEM LOOSO5514-36-53 15:24:0023[facility] HermannCHEM XIHDS8587-36-46 15:24:0024[facility] HermannCHEM VTSXZ8609-39-14 15:24:66120Fnbflzny HermannCHEM WOEHJ3601-88-04 15:24:000.7[facility]annCHEM VFKTW7538-56-01 15:24:0013.0[facility]annCHEM WPFPD9164-01-89 15:24:00 Test Item Value Reference Range Interpretation Comments B/C Ratio (test code = B/C Ratio) 12 1 6-25 [facility] DHCFT8143-89-40 15:24:003.7[facility] HermannCHEM PANEL 2020-09-08 15:24:00 Test Item Value Reference Range Interpretation Comments A/G Ratio (test code = A/G Ratio) 0.7 1 0.7-1.6 [facility]annCHE[facility] GKAHB9194-26-70 15:24:0031[facility] HermannCHEM PANEL 2020-09-08 15:24:001.9[facility] HermannCHEM ZWZXT1032-14-74 15:24:003.0[facility] OvqijsaBTAAVQFHDZ8228-96-09 15:24:005.5[facility] GdmhgibECCEVTJLAG2490-06-18 15:24:003.80[facility] IqptcvjDQGCXJGVWH0595-68-39 15:24:0011.8[facility] Melvin EIPGLELAZC7727-35-18 15:24:0035.3[facility] MdubqlkHXCUTOEBNF2526-79-69 15:24:00 92.8[facility] QpsujacSOONXIDTEZ1297-97-49 15:24:00 Test Item Value Reference Range Interpretation Comments MCH (test code = MCH) 30.9 pg 27.0-31.0 [facility] YhlhrbnKWBFZACYLU2596-09-92 15:24:0033.4[facility] HermannHEMATOLOGY 2020-09-08 15:24:0014.2[facility] XvbykbbACZRMAWRMP4470-94-22 15:24:88882Fpsobtig KjninvtDBVJSOQQWK0284-23-30 15:24:007.8[facility] JitwsnzNRNLSSEEHP3993-65-90 15:24:00 Test Item Value Reference Range Interpretation Comments PT (test code = PT) 14.5 s 12.0-14.7 [facility] GnqdkitDYHSZASJOD8386-13-12 15:24:00 Test Item Value Reference Range Interpretation Comments INR (test code = INR) 1.14 1 0.85-1.17 [facility] WstuwaxEZAYJZKXTF0664-21-28 15:24:00 Test Item Value Reference Range Interpretation Comments PTT (test code = PTT) 31.5 s 22.9-35.8 [facility] QejcyucMHCNVRKXDQ9764-11-70 15:24:0063.1[facility] HermannHEMATOLOGY 2020-09-08 15:24:0024.1[facility] EhtssivHIEQQMFZTO0998-94-23 15:24:0010.0[facility] AkpoumlMCNEZMUXCY5234-80-27 15:24:002.0[facility] NnydygyNUAVZACIKT1591-53-72 15:24:000.8[facility] KcjezwiZKOUZJAMHH8300-11-76 15:24:003.4[facility] MYRHWGWBKC9260-78-29 15:24:001.3[facility] CzrveeoQWCIKGNSRF2520-96-66 15:24:000.5 [facility] OvfxqmrTKFEECDBXY8390-06-41 15:24:000.1[facility] HermannTUMOR MARKERS 2020-09-08 15:24:002.8[facility] HermannCHEM YZEVR5004-64-71 15:30:57581Pywqnzce HermannCHEM KWTZR2555-54-26 15:30:0033[facility] HermannCHEM VWEJT4157-67-95 15:30:002.28[facility] HermannCHEM CNWXX7216-70-16 15:30:38844Lkatgrxl HermannCHEM CHHSB0452-28-80 15:30:004.2[facility] HermannCHEM QTKOJ5251-89-87 15:30:55709 [facility]annCHEM RYPUA5911-20-29 15:30:0023[facility] HermannCHEM PANEL 2020-08-11 15:30:008.1[facility]annCHEM UEMVQ8125-63-01 15:30:006.2[facility] HermannCHEM ZAOIZ3571-82-65 15:30:002.5[facility] HermannCHEM IQEDL4727-57-18 15:30:0025[facility]annCHEM NBQEQ2305-29-89 15:30:0033[facility] HermannCHEM FHDVB6733-78-55 15:30:01459Xlvzbnqj HermannCHEM TIQCG3762-03-00 15:30:000.9 [facility]annCHEM PLCJQ2482-99-61 15:30:0014.2[facility] HermannCHEM PANEL 2020-08-11 15:30:00 Test Item Value Reference Range Interpretation Comments B/C Ratio (test code = B/C Ratio) 14 1 6-25 [facility]annCHEM WIMWX6000-20-69 15:30:003.7[facility] HermannCHEM PANEL 2020-08-11 15:30:00 Test Item Value Reference Range Interpretation Comments A/G Ratio (test code = A/G Ratio) 0.7 1 0.7-1.6 [facility]annCHEM SLDBU5158-03-82 15:30:0029[facility] HermannCHEM PANEL 2020-08-11 15:30:001.7[facility] HermannCHEM LLJIT2643-28-68 15:30:003.1[facility] GxvvtpeQTRFQMWZAH3113-80-09 15:30:0068.6[facility] KfzggbpXPHLRJBKAJ3232-10-04 15:30:0019.9[facility] UppwpriVUGXWSYNYK7862-56-91 15:30:008.7[facility] Lanse KWCHQQGJIE0907-02-57 15:30:001.8[facility] QixocdpAUAGQTYACC6984-38-24 15:30:001.0 [facility] FyrtzrnQNYHGUFLOQ7992-09-64 15:30:004.3[facility] HermannHEMATOLOGY 2020-08-11 15:30:001.3[facility] GocvmuvIWETKJXSED0264-57-12 15:30:000.5[facility] RzexoxnZRSXQKFOPL7830-72-48 15:30:000.1[facility] SmdfuvqYWECNQNEPG0643-14-49 15:30:000.1[facility] KniejukCWMZAOZNEB1053-10-73 15:30:006.3[facility] OCAFPICGXM4118-47-36 15:30:003.85[facility] BvhrjmjEXJTLEGFNF3812-21-59 15:30:00 11.9[facility] IeqyjkfWDGOQCJDRS6151-16-53 15:30:0035.3[facility] HermannHEMATOLOGY 2020-08-11 15:30:0091.7[facility] NugxsnmRTCFNPKJKD4169-85-99 15:30:00 Test Item Value Reference Range Interpretation Comments MCH (test code = MCH) 30.9 pg 27.0-31.0 [facility] ClxlsxaNVERGOEXNN8479-08-57 15:30:0033.7[facility] HermannHEMATOLOGY 2020-08-11 15:30:0014.1[facility] JetmdeiHFXVKZYDAZ7772-61-75 15:30:19798Kuanrjux PiubmirDCGPWJEAWK4230-59-14 15:30:006.9[facility] HermannTUMOR IONVLRZ8155-73-48 15:30:002.9[facility] HermannCHEM QJTPI7193-22-80 18:07:14491Apqcpspu HermannCHEM STLEE4190-17-49 18:07:0032[facility] HermannCHEM OWLAM3036-21-04 18:07:002.37 [facility]annCHEM RHLNG9371-14-91 18:07:25110Jwzgjtve HermannCHEM PANEL 2020-07-14 18:07:004.4[facility] HermannCHEM RBBRD9753-77-80 18:07:24387Luntxmzf HermannCHEM FVLJC8309-06-57 18:07:0025[facility]annCHEM FDLEM6797-25-30 18:07:008.1[facility]annCHEM RBRZK8922-59-85 18:07:006.3[facility] HermannCHEM SCFGS3718-51-00 18:07:002.6[facility] HermannCHEM CMSMX9081-83-00 18:07:0023 [facility]annCHEM NILCO9189-47-97 18:07:0025[facility] HermannCHEM PANEL 2020-07-14 18:07:98497Jagglkdf HermannCHEM FISBI2437-15-91 18:07:000.7[facility] HermannCHEM NGXPP5519-03-47 18:07:0011.4[facility] HermannCHEM HFILE2935-12-10 18:07:00 Test Item Value Reference Range Interpretation Comments B/C Ratio (test code = B/C Ratio) 14 1 6-25 [facility]annCHEM GQPZQ0049-24-44 18:07:003.7[facility] HermannCHEM PANEL 2020-07-14 18:07:00 Test Item Value Reference Range Interpretation Comments A/G Ratio (test code = A/G Ratio) 0.7 1 0.7-1.6 [facility]annCHEM SUGPX3773-80-58 18:07:0027[facility] HermannCHEM PANEL 2020-07-14 18:07:002.0[facility] HermannCHEM GTQGC0308-23-44 18:07:003.5[facility] NkwjihrPQIOMXDXBU4714-13-90 18:07:007.0[facility] QbqrggaYNKZWFEXEG9182-70-60 18:07:003.77[facility] NimdlzaQORDLGWAHT7106-42-38 18:07:0011.7[facility] QSNWELWCUU6907-58-34 18:07:0034.3[facility] DbmevybLSXJXWGHTD3738-88-84 18:07:00 91.0[facility] CtouklcCKRBWWUJCR4408-39-50 18:07:00 Test Item Value Reference Range Interpretation Comments MCH (test code = MCH) 30.9 pg 27.0-31.0 [facility] HheysacONHZOUWRGK7905-06-77 18:07:0034.0[facility]annHEMATOLOGY 2020-07-14 18:07:0013.6[facility] BrdvgyfITBFPACAQF9741-41-83 18:07:19401Wfxikanp CufzoosWSRRNXVMZT6409-54-06 18:07:007.2[facility] KsdwonsIWBNCDMGWK2260-87-09 18:07:00 Test Item Value Reference Range Interpretation Comments PT (test code = PT) 14.4 s 12.0-14.7 [facility] UwfpjahYBPSMMAFCH8180-96-66 18:07:00 Test Item Value Reference Range Interpretation Comments INR (test code = INR) 1.13 1 0.85-1.17 [facility] FqemzqeZSEYMVMHGG3750-65-47 18:07:00 Test Item Value Reference Range Interpretation Comments PTT (test code = PTT) 29.5 s 22.9-35.8 [facility] WexwqzyRTZZFWCMFT1898-34-12 18:07:0070.1[facility]annHEMATOLOGY 2020-07-14 18:07:0019.4[facility] XrjpxbxGPWSFXWZNL0886-88-69 18:07:008.4[facility] GxtawglFFLXPGGXGC8572-68-04 18:07:001.6[facility] LqvszcbIMFHBODRWR4878-19-76 18:07:000.5[facility] MlhnamcGZFLPOCDIS1048-51-32 18:07:004.9[facility] NDHMIXMIKP9027-96-54 18:07:001.4[facility] CmaqzgxRVNVDIKFOY2073-01-41 18:07:000.6 [facility] QyictaqPGMKSWXAIN2525-30-73 18:07:000.1[facility] HermannTUMOR MARKERS 2020-07-14 18:07:003.1[facility]annCHEM KZTPO3874-36-96 19:58:0082.0[facility]annCHEM MZFBW3744-70-54 18:09:001.9[facility]annCHEM JQRJK3727-23-05 18:09:53965Pznmufvj HermannCHEM BNINC1601-03-03 18:09:0028[facility]annCHEM MLIZM8620-64-62 18:09:002.11[facility]annCHEM DNPAM9801-46-69 18:09:96695 [facility]annCHE[facility] MWOSF8576-88-71 18:09:004.2[facility]annCHEM PANEL 2020-05-31 18:09:85948Gcvzuyjk HermannCHEM XCZTM8358-95-28 18:09:0021[facility]annCHEM BONLA9450-16-68 18:09:008.7[facility]annCHEM FNSUF0275-69-06 18:09:006.9[facility]annCHEM SVITX8736-87-62 18:09:003.1[facility]annCHEM EVPHP7565-55-68 18:09:0021[facility]annCHE[facility] HVPEL1318-30-59 18:09:0025 [facility]annCHEM TOIEI8331-65-83 18:09:28882Gzrhvfam HermannCHEM PANEL 2020-05-31 18:09:001.3[facility]annCHEM IPYKD0641-18-72 18:09:0015.2[facility]annCHEM JFCVQ7327-15-77 18:09:00 Test Item Value Reference Range Interpretation Comments B/C Ratio (test code = B/C Ratio) 13 1 6-25 [facility]annCHEM RWALT2165-46-36 18:09:003.8[facility]annCHEM PANEL 2020-05-31 18:09:00 Test Item Value Reference Range Interpretation Comments A/G Ratio (test code = A/G Ratio) 0.8 1 0.7-1.6 [facility]annCHE[facility] FOOSF7610-28-85 18:09:0031[facility]annCHEM PANEL 2020-05-31 18:09:003.8[facility] SypqgbuBJESTHWITD3242-74-12 18:09:00 Test Item Value Reference Range Interpretation Comments PT (test code = PT) 14.0 s 12.0-14.7 [facility] QdwbuyiLVDKAYEIWZ0590-52-20 18:09:00 Test Item Value Reference Range Interpretation Comments INR (test code = INR) 1.09 1 0.85-1.17 [facility] CehnhmoOJVOFCRCSN6617-06-54 18:09:00 Test Item Value Reference Range Interpretation Comments PTT (test code = PTT) 31.6 s 22.9-35.8 [facility] GauesruRISKTGBUKI1206-65-19 18:09:005.9[facility]annHEMATOLOGY 2020-05-31 18:09:004.26[facility] FddztwvRRVYQQOORK9226-71-67 18:09:0013.2[facility] IilywbtJEMJDTGWGQ1375-86-40 18:09:0038.7[facility] GjdpsxyYVGDTJJZDV1335-94-09 18:09:0090.9[facility] FxzkufcWXVJCDUWIA1161-81-04 18:09:00 Test Item Value Reference Range Interpretation Comments MCH (test code = MCH) 31.0 pg 27.0-31.0 [facility] WfguknkILFMHXEUVK7853-05-32 18:09:0034.1[facility] HermannHEMATOLOGY 2020-05-31 18:09:0013.8[facility] QslwcaqGEZAWPECTA3144-15-37 18:09:22332Aggtfgms MydfafjKVVWSUSMHN1943-80-08 18:09:007.3[facility] NylbrluCMCXIAJVRA2005-15-58 18:09:0063.7[facility] SmqoepbIHTQYQESER4591-74-33 18:09:0025.4[facility] DWLELDAAQL6628-43-31 18:09:007.3[facility] PkpqeezNLPQXIPORA2290-53-59 18:09:002.4 [facility] JgnwthvOLROJHWVJH7953-36-25 18:09:001.2[facility]annHEMATOLOGY 2020-05-31 18:09:003.8[facility] ZrfbllySMDYKADJLI5196-54-66 18:09:001.5[facility] IzhzqxaPVAYTUJNYW5192-05-65 18:09:000.4[facility] NkejfthAGYYOFEEDY6111-25-28 18:09:000.1[facility] DbehrvgASPIFGLWYQ5257-85-12 18:09:000.1[facility] HermannTUMOR OSFEBPQ9044-82-44 18:09:003.1[facility]annCHEM NUMHI3354-79-97 18:54:1755.0 [facility]annCHEM TUNBJ2984-16-58 16:42:002.0[facility]annCHEM PANEL 2020-04-07 16:42:003.0[facility]annCHEM DESJL3229-77-24 16:42:23437Mreubboz HermannCHEM ODWLW0040-32-78 16:42:0024[facility]annCHEM LCJZC9437-41-12 16:42:002.21[facility]annCHEM UPFSJ6482-65-62 16:42:35890Tjixcnwx HermannCHEM YORJZ0386-74-99 16:42:004.8[facility]annCHEM UMNRD2642-12-42 16:42:24995 [facility]annCHEM QDDGO6826-80-54 16:42:0027[facility]annCHEM PANEL 2020-04-07 16:42:008.8[facility]annCHEM GMYFZ7127-24-79 16:42:006.9[facility]annCHEM OJYPI4155-91-97 16:42:003.1[facility]annCHEM YGHOU2422-75-42 16:42:0021[facility]annCHEM AGKOF5541-69-42 16:42:0028[facility]annCHEM TWMUE0048-70-17 16:42:58607Lvubihzs HermannCHEM STGME7979-33-36 16:42:001.6 [facility]annCHEM GVXML9035-69-21 16:42:008.8[facility]annCHEM PANEL 2020-04-07 16:42:00 Test Item Value Reference Range Interpretation Comments B/C Ratio (test code = B/C Ratio) 11 1 6-25 [facility]annCHEM BMWHK5245-84-85 16:42:003.8[facility]annCHEM PANEL 2020-04-07 16:42:00 Test Item Value Reference Range Interpretation Comments A/G Ratio (test code = A/G Ratio) 0.8 1 0.7-1.6 [facility]annCHEM WDBCU7467-76-54 16:42:0030[facility]annHEMATOLOGY 2020-04-07 16:42:0069.8[facility] VmesybrNANXUYSSQG4552-17-54 16:42:0019.5[facility] IjtvsmrGPCMOMJIWC2585-95-50 16:42:007.1[facility] RxjcngmNLSVVOGKRF4895-49-89 16:42:002.5[facility] WfbgvufPIDXVCQKQQ6080-86-44 16:42:001.1[facility] WCCHBPONEQ6474-67-22 16:42:004.5[facility] RlzkznhDIZBQLDEJV2849-58-42 16:42:001.3 [facility] HwrpmlnUTYOIUHVXJ7581-76-09 16:42:000.5[facility] HermannHEMATOLOGY 2020-04-07 16:42:000.2[facility] QmkggudUQHVOPKPNY7922-92-70 16:42:000.1[facility] EtuidgcDGFULYUAGY9793-81-36 16:42:00 Test Item Value Reference Range Interpretation Comments PT (test code = PT) 14.2 s 12.0-14.7 [facility] IlvzhgiDPGFAUESYX0542-41-19 16:42:00 Test Item Value Reference Range Interpretation Comments INR (test code = INR) 1.10 1 0.85-1.17 [facility] DoouyyiCUDXTRENRE7323-17-47 16:42:00 Test Item Value Reference Range Interpretation Comments PTT (test code = PTT) 31.1 s 22.9-35.8 [facility] FfupsadNPDPIXJYOF9651-12-07 16:42:006.4[facility] HermannHEMATOLOGY 2020-04-07 16:42:004.30[facility] HnijpkdUSHRPTOYSR0043-15-60 16:42:0013.2[facility] SrohvkzWEQFUJQNNL5000-33-88 16:42:0039.7[facility] PibkeuvVDXCDPILTW2819-18-68 16:42:0092.3[facility] PjatbkqVUJQOTRLQH8941-40-38 16:42:00 Test Item Value Reference Range Interpretation Comments MCH (test code = MCH) 30.6 pg 27.0-31.0 [facility] BiugixmVHJCMOEJFF9505-48-34 16:42:0033.2[facility] HermannHEMATOLOGY 2020-04-07 16:42:0014.4[facility] GnadwdxVHYBKROEFY7199-44-33 16:42:86931Totieavo VlpwvbrDFWGGNHKOS0087-57-50 16:42:007.8[facility] HermannTUMOR IKLPTMD0159-62-81 16:42:003.4[facility] HermannCHEM XWGFA1467-29-66 18:22:003.5[facility] HermannCHEM QQCKZ3271-54-00 18:22:0087[facility]annCHEM XIFPH7798-88-12 18:22:0026 [facility]annCHEM XWOVV0227-07-22 18:22:002.00[facility]annCHEM PANEL 2020-03-10 18:22:39914Mzqkltxr HermannCHEM ULFKE6127-09-64 18:22:004.7[facility]annCHEM TPTEP9734-88-54 18:22:76686Bmodhofp HermannCHEM FVBRH2301-12-56 18:22:0025[facility]annCHEM FQRGB2128-58-09 18:22:008.0[facility]annCHEM BMSAD7933-51-51 18:22:006.2[facility]annCHEM GCWKE0892-19-04 18:22:002.7 [facility]annCHEM LNRXZ4042-21-05 18:22:0021[facility]annCHEM PANEL 2020-03-10 18:22:0028[facility]annCHEM WMARO1387-80-35 18:22:24185Yotbmddl HermannCHEM AQNRT0194-36-23 18:22:000.7[facility] HermannCHEM EQJHP4659-05-55 18:22:008.7[facility]annCHEM FFZDT7071-77-99 18:22:00 Test Item Value Reference Range Interpretation Comments B/C Ratio (test code = B/C Ratio) 13 1 6-25 [facility]annCHEM FFSZD6500-49-48 18:22:003.5[facility]annCHEM PANEL 2020-03-10 18:22:00 Test Item Value Reference Range Interpretation Comments A/G Ratio (test code = A/G Ratio) 0.8 1 0.7-1.6 [facility]annCHEM WNDEB6829-11-90 18:22:0034[facility]annCHEM PANEL 2020-03-10 18:22:001.7[facility] XrpskjwXPSVIEMRCV9779-41-48 18:22:0068.6[facility] UowvexiCMSQKQNCFJ2582-93-14 18:22:0020.6[facility] QpnwumwZTGTYFQLAK4003-48-95 18:22:008.4[facility] TvnzpnpWIUGOPYOIA0615-28-55 18:22:001.8[facility] VZDTGVZLAB7191-60-17 18:22:000.6[facility] IopmbmhPVULVFUWDG9696-10-18 18:22:004.5 [facility] DnhoedhPAIKRGTCNP6725-98-52 18:22:001.3[facility] HermannHEMATOLOGY 2020-03-10 18:22:000.5[facility] RetohwyYMOSRRRKYU4252-02-26 18:22:000.1[facility] VhxpgxlRYYAULDKXP8008-51-60 18:22:006.5[facility] TcuicwcLAPGRBHHXR2718-59-05 18:22:003.97[facility] JxytkznNBXAVGSSPI2166-28-26 18:22:0012.5[facility] SVVQZFDFZQ9877-09-37 18:22:0036.5[facility] PdqaqsmGHJCTZZHOO3412-87-48 18:22:00 91.9[facility] RrvylpiNBZBRKDHLD8787-05-71 18:22:00 Test Item Value Reference Range Interpretation Comments MCH (test code = MCH) 31.6 pg 27.0-31.0 [facility] LigpgncKQFHMXRKCI6570-89-65 18:22:0034.4[facility] HermannHEMATOLOGY 2020-03-10 18:22:0014.2[facility] DeumkutCJXCGVLKTL4184-22-06 18:22:78001Tantfmcb LmnvbovCWVNSBQBHO5109-23-18 18:22:007.5[facility] MybcyzoCGMXOYDWXY9831-92-59 18:22:00 Test Item Value Reference Range Interpretation Comments PT (test code = PT) 14.2 s 12.0-14.7 [facility] KyzmdfkDVQLIVPMIV5640-38-85 18:22:00 Test Item Value Reference Range Interpretation Comments INR (test code = INR) 1.10 1 0.85-1.17 [facility] ZoqmfiwXPTJSALBOH0637-72-41 18:22:00 Test Item Value Reference Range Interpretation Comments PTT (test code = PTT) 28.8 s 22.9-35.8 [facility] HermannTUMOR PSJALPE7420-97-99 18:22:003.1[facility] HermannCHEM PANEL 2020-02-11 16:55:003.3[facility] HermannCHEM HRZCW3086-92-82 16:55:001.6[facility] HermannCHEM UBBUF2944-57-72 16:55:04364Ruwqzdpp HermannCHEM VWIMF8267-32-40 16:55:0025[facility]annCHEM GOSYX1887-04-98 16:55:001.81[facility]annCHEM ZINPM9996-68-22 16:55:58315Wtijtbik HermannCHEM FNVHA3263-48-50 16:55:004.3 [facility]annCHEM PUFJP0360-90-84 16:55:68240Tgbfyxjs HermannCHEM PANEL 2020-02-11 16:55:0023[facility]annCHEM ZVWTW3505-89-60 16:55:008.3[facility]annCHEM YFAGT1011-78-84 16:55:006.6[facility]annCHEM ZERCJ0014-58-62 16:55:003.0[facility]annCHEM DFBNS3100-11-02 16:55:0019[facility]annCHEM CLPFK6604-32-91 16:55:0023[facility]annCHEM IYDPC7863-13-35 16:55:13703 [facility]annCHEM ZUVVL4218-42-17 16:55:001.3[facility]annCHEM PANEL 2020-02-11 16:55:009.3[facility] HermannCHEM RWAYM0804-58-72 16:55:00 Test Item Value Reference Range Interpretation Comments B/C Ratio (test code = B/C Ratio) 14 1 6-25 [facility]annCHEM OKHNW2896-12-48 16:55:003.6[facility]annCHEM PANEL 2020-02-11 16:55:00 Test Item Value Reference Range Interpretation Comments A/G Ratio (test code = A/G Ratio) 0.8 1 0.7-1.6 [facility]annCHEM CXNNX3398-20-42 16:55:0038[facility]annHEMATOLOGY 2020-02-11 16:55:006.7[facility] SoqdnruVLWYMNIYSN5681-32-73 16:55:004.20[facility] XjtmgzjHORZAGILYQ6871-96-30 16:55:0012.9[facility] YnmwhfiBYUYGLPQAT7866-60-50 16:55:0038.0[facility] OtjmjxtIDCYNMWADC3595-77-02 16:55:0090.5[facility] NXKHWUYSIU7102-75-64 16:55:00 Test Item Value Reference Range Interpretation Comments MCH (test code = MCH) 30.8 pg 27.0-31.0 [facility] QqnkwloPIJPNFQART4682-48-09 16:55:0034.1[facility]annHEMATOLOGY 2020-02-11 16:55:0014.2[facility] QrvxvviOBNUJSARPK1247-03-16 16:55:77899Kbyhsmip BzogkmnJRUGVUUJLO6166-26-85 16:55:007.4[facility] QyzzazoBOCCQSOKHY7448-17-52 16:55:00 Test Item Value Reference Range Interpretation Comments PT (test code = PT) 13.9 s 12.0-14.7 [facility] RkisnssIFROLMXWBP7355-97-89 16:55:00 Test Item Value Reference Range Interpretation Comments INR (test code = INR) 1.07 1 0.85-1.17 [facility] StjhhiqTCWMTNRWSJ5132-48-54 16:55:00 Test Item Value Reference Range Interpretation Comments PTT (test code = PTT) 29.2 s 22.9-35.8 [facility] ThnsoclYRBVKOOFOV2700-88-11 16:55:0065.9[facility]annHEMATOLOGY 2020-02-11 16:55:0024.1[facility] JvdbbmfDWOKVJWPAJ0274-72-02 16:55:007.2[facility] HbsvbtoOHFFFXLBTS3265-13-45 16:55:001.7[facility] DqahckdEYCFZBQRBY3615-78-56 16:55:001.1[facility] LjmumzoGYACEPGVJD8051-31-68 16:55:004.4[facility] NHBHVUXWDX8629-11-57 16:55:001.6[facility] DtdsemjULWWMVZZPC7579-92-60 16:55:000.5 [facility] GnyzbpoBWGSPXKPEA4087-10-08 16:55:000.1[facility]annHEMATOLOGY 2020-02-11 16:55:000.1[facility] HermannTUMOR MNCXFOO5615-49-10 16:55:004.1 [facility]annCHEM XCDTV7663-06-07 15:15:002.7[facility]annCHEM PANEL 2020-01-14 15:15:91458Uwisvttm HermannCHEM UBTYU6356-14-45 15:15:0025[facility]annCHEM YRDNH3319-43-21 15:15:001.95[facility]annCHEM KWZPD3187-18-63 15:15:87066Bhjxervs HermannCHEM WGDHP6127-88-23 15:15:004.8[facility]annCHEM DEQWU6701-47-94 15:15:92045Dhpipduk HermannCHEM ADJIS0533-65-50 15:15:0027 [facility]annCHEM MIXEA4615-29-00 15:15:008.7[facility]annCHEM PANEL 2020-01-14 15:15:006.5[facility]annCHEM FOAFC2997-86-58 15:15:002.8[facility]annCHEM FUQNL6762-29-61 15:15:0016[facility]annCHEM JTPPG7217-68-77 15:15:0024[facility]annCHEM UUNXT0355-18-47 15:15:36173Fgxymvqy HermannCHEM CJBDB3290-50-13 15:15:000.9[facility] HermannCHEM WSALV3402-82-77 15:15:0010.8 [facility]annCHEM GOUFY2186-56-77 15:15:00 Test Item Value Reference Range Interpretation Comments B/C Ratio (test code = B/C Ratio) 13 1 6-25 [facility]annCHEM IWONV2957-87-87 15:15:003.7[facility]annCHEM PANEL 2020-01-14 15:15:00 Test Item Value Reference Range Interpretation Comments A/G Ratio (test code = A/G Ratio) 0.8 1 0.7-1.6 [facility]annCHEM BQRRW8752-23-43 15:15:0035[facility]annCHEM PANEL 2020-01-14 15:15:001.9[facility] KfbzsiqQMMAHZZXWT1027-13-53 15:15:005.2[facility] EuaggtcZAOGLKAJYH4232-70-82 15:15:003.92[facility] XapmvlfRAVJNFXOYZ4054-69-59 15:15:0012.1[facility] ZdlezwiHDPCPKWVSQ5566-80-63 15:15:0035.4[facility] HPWFKGTGGB4103-33-19 15:15:0090.2[facility] VlafgfqEEXBDKMUVY2851-05-25 15:15:00 Test Item Value Reference Range Interpretation Comments MCH (test code = MCH) 30.9 pg 27.0-31.0 [facility] KllwtjhKQXMGRZJQR1054-45-76 15:15:0034.2[facility]annHEMATOLOGY 2020-01-14 15:15:0014.3[facility] HiotdhsTFFOMAVSWI9943-24-34 15:15:27727Qzuchnbj VfwvxutBXCBBZBRKP7562-10-34 15:15:006.6[facility] JepcdzqGZXNVVXERI9003-99-50 15:15:00 Test Item Value Reference Range Interpretation Comments PT (test code = PT) 14.4 s 12.0-14.7 [facility] AfbziizWDUULKJTVF5340-55-66 15:15:00 Test Item Value Reference Range Interpretation Comments INR (test code = INR) 1.11 1 0.85-1.17 [facility] WqhfbtuXKLYDQAMCB1880-06-14 15:15:00 Test Item Value Reference Range Interpretation Comments PTT (test code = PTT) 30.8 s 22.9-35.8 [facility] ExvtdjaQUHBAXGAAN3328-96-82 15:15:0068.4[facility]annHEMATOLOGY 2020-01-14 15:15:0018.6[facility] DzbrgchGOUCUWMUEQ7948-46-73 15:15:009.2[facility] SmxgqieLCFQRCJJOC1167-56-15 15:15:002.6[facility] XgyrebzCRYGQGXELE1881-38-29 15:15:001.2[facility] WnnnplwIZAOQGZCNS1820-95-75 15:15:003.6[facility] MCFWHOGSGP3520-80-74 15:15:001.0[facility] UsgqnqjQOKWTZJLRM1279-82-37 15:15:000.5 [facility] WxxvbrpNVVJUWTUKF6229-66-02 15:15:000.1[facility]annHEMATOLOGY 2020-01-14 15:15:000.1[facility] HermannTUMOR DHQTJKZ5270-09-63 15:15:003.0 [facility] HermannCHEM KXCNV7795-52-20 18:08:16653Uzyuurrj HermannCHEM PANEL 2019-12-17 18:08:0019[facility] HermannCHEM JHKME2322-30-79 18:08:002.03[facility]annCHEM POQUS3866-57-09 18:08:15625Pjnicwdz HermannCHEM XNILH6033-57-52 18:08:004.1[facility] HermannCHEM AZQAU6872-58-89 18:08:81186Wqiftors HermannCHEM WHYQL0953-81-70 18:08:0027[facility]annCHEM SAFSD8986-51-30 18:08:009.0 [facility]annCHEM YOZKW0006-30-40 18:08:006.9[facility]annCHEM PANEL 2019-12-17 18:08:003.1[facility] HermannCHEM OSBTU0705-89-67 18:08:0020[facility]annCHEM PUIEQ1031-69-48 18:08:0027[facility]annCHEM DWIZW9922-17-54 18:08:07521Uogkwmir HermannCHEM ULILB9715-03-38 18:08:001.4[facility]annCHEM OCJZA9860-14-23 18:08:0010.1[facility] HermannCHEM MDGNC3681-58-51 18:08:00 Test Item Value Reference Range Interpretation Comments B/C Ratio (test code = B/C Ratio) 9 1 6-25 [facility] HermannCHEM LLCNH0306-92-15 18:08:003.8[facility] HermannCHEM PANEL 2019-12-17 18:08:00 Test Item Value Reference Range Interpretation Comments A/G Ratio (test code = A/G Ratio) 0.8 1 0.7-1.6 [facility]annCHEM EDWMN9548-81-73 18:08:0033[facility]annCHEM PANEL 2019-12-17 18:08:001.8[facility] HermannCHEM NPOCX9066-23-17 18:08:002.9[facility] FyddgdfXMBMIXMROZ5706-35-60 18:08:007.5[facility] GifpbxeOTPPRWTDVH0156-21-58 18:08:004.34[facility] GhrcyncTYCZRGVEVK2825-93-73 18:08:0013.3[facility] KZNLAPNQAI9869-46-98 18:08:0039.3[facility] OptjrpmHJOTLLDGLE6727-27-44 18:08:00 90.4[facility] BgwkudqDUXARABYIR0452-32-74 18:08:00 Test Item Value Reference Range Interpretation Comments MCH (test code = MCH) 30.7 pg 27.0-31.0 [facility] QdolfkbHHUAQYBEMR1476-00-54 18:08:0034.0[facility] HermannHEMATOLOGY 2019-12-17 18:08:0014.3[facility] BysdruxCSBTLEJGLR8825-85-12 18:08:28583Fjxqoqyp WgfmpybHPWVOPFDRS5088-54-78 18:08:006.9[facility] AqrfnfqAAALSJLVOS8212-43-42 18:08:00 Test Item Value Reference Range Interpretation Comments PT (test code = PT) 14.4 s 12.0-14.7 [facility] RlwkmwxZRDNLTZWDW9472-21-37 18:08:00 Test Item Value Reference Range Interpretation Comments INR (test code = INR) 1.11 1 0.85-1.17 [facility] PghzwclPFVSQJCOTF7789-88-94 18:08:00 Test Item Value Reference Range Interpretation Comments PTT (test code = PTT) 30.3 s 22.9-35.8 [facility] YnbvevzTSVFUIBIOU1048-91-02 18:08:0068.5[facility] HermannHEMATOLOGY 2019-12-17 18:08:0020.4[facility] TkigxhuLSCAJSOEPX2239-43-56 18:08:007.3[facility] ZiqbnkyLYGWCNGOLZ1238-53-43 18:08:003.0[facility] TzeanfhYSUHCYRHPZ1312-71-44 18:08:000.8[facility] WbnyatrWUBQANBYUN2685-49-28 18:08:005.2[facility] VGJWOHXPJD9696-90-81 18:08:001.5[facility] KerrpohRPEGXNHQLW6049-07-89 18:08:000.5 [facility] CkpsecxNVVSLFGAZG9339-63-85 18:08:000.2[facility] HermannHEMATOLOGY 2019-12-17 18:08:000.1[facility] HermannTUMOR RQWYYBY9589-98-11 18:08:004.0 [facility] HermannCHEM AAYSB7596-58-33 17:48:40425Ihaysfjh HermannCHEM PANEL 2019-11-19 17:48:0027[facility] HermannCHEM JOUGR5866-37-24 17:48:002.09[facility] HermannCHEM PHYNA3628-76-55 17:48:99936Aibkzxjd HermannCHEM NERBE3125-73-29 17:48:004.3[facility] HermannCHEM NBQMN0333-47-34 17:48:00711Dbkezkor HermannCHEM BTLFC9258-18-94 17:48:0024[facility] HermannCHEM MYQTM4120-94-70 17:48:009.1 [facility]annCHEM MQUOX9387-90-79 17:48:007.2[facility] HermannCHEM PANEL 2019-11-19 17:48:003.4[facility] HermannCHEM GEVWQ1381-95-16 17:48:0021[facility] HermannCHEM OUXVG4266-23-94 17:48:0021[facility] HermannCHEM PQHOX5781-05-73 17:48:11688Vhedrpql HermannCHEM DRCIX8263-75-88 17:48:000.8[facility] HermannCHEM HQWAR3355-04-48 17:48:0013.3[facility] HermannCHEM PSFYB4901-82-44 17:48:00 Test Item Value Reference Range Interpretation Comments B/C Ratio (test code = B/C Ratio) 13 1 6-25 [facility] MLVNJ2330-68-15 17:48:003.8[facility]annCHEM PANEL 2019-11-19 17:48:00 Test Item Value Reference Range Interpretation Comments A/G Ratio (test code = A/G Ratio) 0.9 1 0.7-1.6 [facility] UOEPN9446-53-00 17:48:0032[facility]annCHEM PANEL 2019-11-19 17:48:001.9[facility]CHE[facility] AEICW5311-93-35 17:48:003.0[facility] OwxofpeYMOVXQZDDE1972-39-07 17:48:0073.7[facility] NsegwnsXUXPDIOLXJ3644-67-00 17:48:0016.4[facility] DhmdysnFTXBJQAVNW4948-05-08 17:48:008.6[facility] DUPVBFJITA8048-49-13 17:48:000.8[facility] XugeixwWECDGCUTOX0235-78-81 17:48:000.5 [facility] LhphhedJSDXGGSIEF0851-65-14 17:48:005.2[facility]annHEMATOLOGY 2019-11-19 17:48:001.2[facility] JpwfdjgBMOJGCSVLC3035-91-20 17:48:000.6[facility] PfchlgrGCJPUVJAXR2647-72-25 17:48:000.1[facility] DvvadajXIVSDCENJH2538-61-56 17:48:007.0[facility] ZytpgveNIBCFQZZFD9358-97-57 17:48:004.33[facility] ZSAHXQXYGU4530-18-81 17:48:0013.3[facility] MtfatclYIGQNLZWNH3522-40-82 17:48:00 39.4[facility] RgycygmMRIBBZDQSI2716-37-98 17:48:0091.1[facility]annHEMATOLOGY 2019-11-19 17:48:00 Test Item Value Reference Range Interpretation Comments MCH (test code = MCH) 30.8 pg 27.0-31.0 [facility] IergjosUVJVGREIUH2190-04-98 17:48:0033.8[facility]annHEMATOLOGY 2019-11-19 17:48:0014.0[facility] RouxlaeXRKCEMJVVG9273-98-84 17:48:86631Lzntqypg UpcrixsPRQOKLVUCL8358-50-10 17:48:007.7[facility] PryzqpgMPTXERJOCZ8459-08-83 17:48:00 Test Item Value Reference Range Interpretation Comments PT (test code = PT) 14.5 s 12.0-14.7 [facility] ZrifslzLJTWQBNIVB1936-93-56 17:48:00 Test Item Value Reference Range Interpretation Comments INR (test code = INR) 1.12 1 0.85-1.17 [facility] WfahqxpAJLTLJSGVL8804-70-19 17:48:00 Test Item Value Reference Range Interpretation Comments PTT (test code = PTT) 29.9 s 22.9-35.8 [facility]annTUM[facility] EFNOACU5910-41-37 17:48:004.5[facility]annCHEM PANEL 2019-10-20 13:58:10280Spxjpoiz HermannCHEM TQNWG9601-37-86 13:58:0044[facility]annCHE[facility] PSASH0532-95-89 13:58:003.83[facility]annCHE[facility] IOIAH4108-47-94 13:58:61662Qufehdsc HermannCHEM RRJAO1002-96-77 13:58:003.7[facility]annCHE[facility] VWENT2665-97-78 13:58:17118Neigitmu HermannCHEM KGOBB9294-74-65 13:58:0025 [facility] XTGXT2600-77-47 13:58:008.4[facility]annCHEM PANEL 2019-10-20 13:58:007.4[facility]annCHE[facility] NKWXN6158-94-85 13:58:003.3[facility]annCHE[facility] SBZYD8138-97-32 13:58:0027[facility]annCHE[facility] OHWCT3625-36-65 13:58:0033[facility]annCHE[facility] AUXHY9860-39-88 13:58:47083Grxawwxv HermannCHEM PCFDW1717-69-20 13:58:000.7[facility]annCHE[facility] JXRDZ9052-65-66 13:58:0016.7 [facility]CHE[facility] HMWNL2884-81-40 13:58:00 Test Item Value Reference Range Interpretation Comments B/C Ratio (test code = B/C Ratio) 11 1 6-25 [facility] WOPLK5341-09-08 13:58:004.1[facility]annCHEM PANEL 2019-10-20 13:58:00 Test Item Value Reference Range Interpretation Comments A/G Ratio (test code = A/G Ratio) 0.8 1 0.7-1.6 [facility]CHE[facility] TXRFC0597-51-44 13:58:0015[facility]annCHEM PANEL 2019-10-20 13:58:004.9[facility]annCHEM GXZDD8114-04-33 13:58:002.1[facility] XescpfyPZMYQFJUFL8854-79-79 13:58:0072.9[facility] WmwhcdbNIWOSWNKBX4926-22-19 13:58:0017.3[facility] UalsqiiVYIYULLBLP1752-57-63 13:58:007.9[facility] MBSGTJAVQJ8016-03-18 13:58:000.8[facility] AytcyeuINUSBYYXCB9233-92-72 13:58:001.1 [facility] DrucbwgROZWJQEVZK6424-60-61 13:58:007.4[facility]annHEMATOLOGY 2019-10-20 13:58:001.8[facility] JcrprvhFQSOCXSKRC1642-52-71 13:58:000.8[facility] LrmxectDMDODCHDMR8160-72-61 13:58:000.1[facility] VikoqtsIUKSLFCVDS6942-97-09 13:58:000.1[facility] ZsfwolpDPXJUEJORJ8718-81-57 13:58:00 Test Item Value Reference Range Interpretation Comments PT (test code = PT) 13.7 s 12.0-14.7 [facility] XtbrqgoCKYYXLWEHA9519-06-69 13:58:00 Test Item Value Reference Range Interpretation Comments INR (test code = INR) 1.05 1 0.85-1.17 [facility] JnaspljMKKXRCXHDM7673-46-42 13:58:00 Test Item Value Reference Range Interpretation Comments PTT (test code = PTT) 30.6 s 22.9-35.8 [facility] HgwlsitRYLUPHYLHT3784-33-43 13:58:0010.1[facility]annHEMATOLOGY 2019-10-20 13:58:004.69[facility] VuwmwjyPLZOXQUKYD4754-50-90 13:58:0014.4[facility] TevehcwCCFICBPWJH7447-44-93 13:58:0042.4[facility] VxnqtvlDVRLIBCSPZ2386-43-16 13:58:0090.3[facility] PcxkylhHNLYFGDZWO9309-35-18 13:58:00 Test Item Value Reference Range Interpretation Comments MCH (test code = MCH) 30.8 pg 27.0-31.0 [facility] EauddeuVFTIVSCNXH9406-40-21 13:58:0034.1[facility]annHEMATOLOGY 2019-10-20 13:58:0013.9[facility] JdbayokSDJTYTWQNH7140-84-57 13:58:35213Aabcsmqm OonbcoyVTJDCOVHOX5081-10-10 13:58:007.7[facility] HermannTUMOR CVJQZZC6990-86-01 13:58:004.7[facility]annCHEM FGBIA8031-48-15 14:05:23558Eagmbsta HermannCHEM HXADQ4573-56-65 14:05:0033[facility]annCHEM GBSKK7454-00-82 14:05:002.29 [facility]annCHE[facility] VPYGL1876-31-33 14:05:77801Mtndalzd HermannCHEM PANEL 2019-09-22 14:05:003.7[facility]annCHEM KJCXA4706-36-02 14:05:79402Yjxzcsrn HermannCHEM STAKJ4083-60-18 14:05:0025[facility]annCHE[facility] XLXSA9847-96-72 14:05:008.3[facility]annCHEM UNUXY3342-96-31 14:05:006.8[facility]annCHEM PKNPG9052-62-58 14:05:003.2[facility]annCHEM LYAOC6943-36-59 14:05:0019 [facility]annCHE[facility] FVTLX8536-57-54 14:05:0019[facility]annCHEM PANEL 2019-09-22 14:05:94871Bmfpwklo HermannCHEM HOKVZ9077-17-73 14:05:000.8[facility]annCHEM DEWUW8166-67-24 14:05:0014.7[facility]annCHEM GXIDK1393-46-91 14:05:00 Test Item Value Reference Range Interpretation Comments B/C Ratio (test code = B/C Ratio) 14 1 6-25 [facility] EUTLK8661-24-09 14:05:003.6[facility]annCHEM PANEL 2019-09-22 14:05:00 Test Item Value Reference Range Interpretation Comments A/G Ratio (test code = A/G Ratio) 0.9 1 0.7-1.6 [facility] GNONN5062-38-71 14:05:0029Memsriks HermannCHEM PANEL 2019-09-22 14:05:004.7[facility]annCHEM RBCXS8936-25-06 14:05:001.8[facility] PulbcfbRGVXKEBPVJ5482-21-99 14:05:00 Test Item Value Reference Range Interpretation Comments PT (test code = PT) 14.1 s 12.0-14.7 [facility]kinGyatdunMMGIIAGJBQ5163-47-22 14:05:00 Test Item Value Reference Range Interpretation Comments INR (test code = INR) 1.09 1 0.85-1.17 [facility]kinObwjjncMPOEHEQGMX7381-28-99 14:05:00 Test Item Value Reference Range Interpretation Comments PTT (test code = PTT) 30.7 s 22.9-35.8 [facility]kinAvfzynfBTQKWVOBZH9508-20-58 14:05:006.3[facility]annHEMATOLOGY 2019-09-22 14:05:004.08[facility] XhqrkwwLQLXDEJNMJ8927-05-73 14:05:0012.6[facility] RindvzpNYZZRFIYJK4993-14-27 14:05:0037.2[facility] TkrmiorJEMLVXILXM3535-14-16 14:05:0091.2[facility] KlgwxuhZMKVJHZXDA4222-99-58 14:05:00 Test Item Value Reference Range Interpretation Comments MCH (test code = MCH) 30.8 pg 27.0-31.0 [facility]kinNpjsphiJBNDNNSDSY4924-62-12 14:05:0033.8[facility]annHEMATOLOGY 2019-09-22 14:05:0014.1[facility] UugidawSMHKASQEMV5824-53-48 14:05:09430Eyllhini LfqxzlpCNMBJRNRQL1319-80-39 14:05:008.1[facility] RvhbkafGZDFOTIONQ7275-37-35 14:05:0069.3[facility] LbzvwbdXMWUJGIARR1912-28-88 14:05:0020.4[facility] RAKCCPQZNY9494-26-92 14:05:007.5[facility] RklxxmeBXPMREHJQH0485-11-50 14:05:001.5 [facility] AomzvweGGWLQXYMJB8918-47-68 14:05:001.3[facility]annHEMATOLOGY 2019-09-22 14:05:004.3[facility] JuzdpqdJFQDQLQODH0754-13-61 14:05:001.3[facility] HgdtmznHLXQWSGJOS9129-49-59 14:05:000.5[facility] RulhwuyVEORTMMPVK2827-77-23 14:05:000.1[facility] RmafsxeJYLAUVNZVZ6551-08-10 14:05:000.1[facility] HermannTUMOR IZYDIXK9131-55-51 14:05:005.3[facility] HermannCHEM OPYUT8618-13-53 12:55:0095 [facility]annCHEM EEEOO9666-84-39 12:55:0022[facility]annCHEM PANEL 2019-08-25 12:55:002.55[facility]annCHEM AWPRK7397-74-18 12:55:15841Natiuqtz HermannCHEM ITUTC4541-21-19 12:55:003.6[facility]annCHEM MDBCW2724-32-27 12:55:73150Dqmdxfni HermannCHEM TKROX4228-03-60 12:55:0022[facility]annCHEM ITTDT2165-26-56 12:55:008.3[facility]annCHEM VJBRB7484-71-57 12:55:007.0 [facility]annCHEM SBJJR1149-64-08 12:55:003.2[facility]annCHEM PANEL 2019-08-25 12:55:0019[facility]annCHEM YCLYJ1146-13-72 12:55:0018[facility]annCHEM IPIGW2352-72-99 12:55:66907Dqyuwebx HermannCHEM BDFTG3431-64-95 12:55:000.8[facility]annCHEM MPDKP8066-35-13 12:55:0016.6[facility]annCHEM FEWTQ2843-02-14 12:55:00 Test Item Value Reference Range Interpretation Comments B/C Ratio (test code = B/C Ratio) 9 1 6-25 [facility]annCHEM ZFNXN8995-50-06 12:55:003.8[facility]annCHEM PANEL 2019-08-25 12:55:00 Test Item Value Reference Range Interpretation Comments A/G Ratio (test code = A/G Ratio) 0.8 1 0.7-1.6 [facility]annCHEM BZXXT0114-01-70 12:55:0025[facility]annCHEM PANEL 2019-08-25 12:55:001.4[facility]annCHEM TLKWT6651-61-29 12:55:003.5[facility] SmlozgnTZEYCIREMD3992-44-79 12:55:007.6[facility] IfvuonqVLNVFWCYPY0307-69-89 12:55:004.37[facility] ZdrowqyBBLTXZHMYL2452-89-18 12:55:0013.3[facility] ELTKNSZHJH7202-84-26 12:55:0039.5[facility] DjelojpNYBXXVWREP9732-39-60 12:55:00 90.4[facility] NqcnfhzTNFNUNCKCA2056-93-20 12:55:00 Test Item Value Reference Range Interpretation Comments MCH (test code = MCH) 30.5 pg 27.0-31.0 [facility] DgpfrkpIQWTMHRDEM2552-62-19 12:55:0033.7[facility] HermannHEMATOLOGY 2019-08-25 12:55:0013.6[facility] KrdpwqpRDWZZWZZCJ4946-67-42 12:55:33898Nuflzvoi DeyeydkRZZSRSBOUE8730-37-62 12:55:008.1[facility] EnvmodiMBSRXXOZXH9984-81-87 12:55:00 Test Item Value Reference Range Interpretation Comments PT (test code = PT) 14.4 s 12.0-14.7 [facility] QtjcwxcMSKEJWKKMG3598-04-55 12:55:00 Test Item Value Reference Range Interpretation Comments INR (test code = INR) 1.11 1 0.85-1.17 [facility] SxoputzODXFHHMISD2088-37-10 12:55:00 Test Item Value Reference Range Interpretation Comments PTT (test code = PTT) 30.6 s 22.9-35.8 [facility] ZitmqesECWQVQOZIE5156-67-85 12:55:0065.6[facility] HermannHEMATOLOGY 2019-08-25 12:55:0021.8[facility] KhbkxsnAHTCNSEZRR9131-82-59 12:55:009.2[facility] AdcornxJTEYRVSZIG9797-36-46 12:55:002.5[facility] RrhtputFQQLHLKIIY2379-52-13 12:55:000.9[facility] KrvfaobBTOUFGJSOC0809-72-24 12:55:005.0[facility] WWUTGWGEVQ8377-32-13 12:55:001.7[facility] VptijiuHMSDMCKRCL7871-49-20 12:55:000.7 [facility] UrplbyaVFPPINIJQU0632-27-81 12:55:000.2[facility] HermannHEMATOLOGY 2019-08-25 12:55:000.1[facility] HermannTUMOR FJXYPAC1553-55-24 12:55:003.6 [facility] HermannCHEM MDPHW9224-56-59 16:54:57912Xpyhesrm HermannCHEM PANEL 2019-08-04 16:54:0034[facility] HermannCHEM ABYAU2970-70-07 16:54:002.61[facility] HermannCHEM VHBAW0468-17-56 16:54:87105Fbcawskh HermannCHEM WGOGV0421-40-09 16:54:004.3[facility] HermannCHEM FEAJQ3352-50-35 16:54:76045Ndnfgzhp HermannCHEM RNGYB7723-11-22 16:54:0024[facility] HermannCHEM HQPSI4824-43-85 16:54:009.2 [facility]annCHEM ZHTZG7690-31-68 16:54:007.2[facility] HermannCHEM PANEL 2019-08-04 16:54:003.4[facility] HermannCHEM YYDHO1823-88-41 16:54:0021[facility] HermannCHEM UEBZO1049-43-46 16:54:0027[facility]annCHEM WPAXB2496-16-05 16:54:16595Bltxkgcu HermannCHEM HSVZC9581-99-24 16:54:001.0[facility] HermannCHEM HGQMT8790-73-94 16:54:0015.3[facility] HermannCHEM XFMXO8802-01-53 16:54:00 Test Item Value Reference Range Interpretation Comments B/C Ratio (test code = B/C Ratio) 13 1 6-25 [facility]annCHEM FYWHL7418-15-01 16:54:003.8[facility]annCHEM PANEL 2019-08-04 16:54:00 Test Item Value Reference Range Interpretation Comments A/G Ratio (test code = A/G Ratio) 0.9 1 0.7-1.6 [facility]annCHEM PEFII7743-88-91 16:54:0024[facility]annCHEM PANEL 2019-08-04 16:54:002.1[facility] HermannCHEM FNTPR0212-15-97 16:54:002.3[facility] GbuyyozGYSMKLIVTB0480-13-91 16:54:0067.0[facility] GwjmnihFEBXWDPHAV4273-75-11 16:54:0020.5[facility] JsiiqocJBFDUYZOZN6836-11-80 16:54:0010.1[facility] OGAEABCYSD1554-20-83 16:54:001.8[facility] WbmkifjSFQVVBTRUX3416-98-78 16:54:000.6 [facility] BgeoouyWBWBVGHHDY6018-55-05 16:54:003.4[facility] HermannHEMATOLOGY 2019-08-04 16:54:001.1[facility] IrcjqilUJVNGLDMLL5645-34-68 16:54:000.5[facility] RyzigavADDMIAVQPB7321-18-61 16:54:000.1[facility] TypigmeZAGGDFRPNP9097-03-84 16:54:005.2[facility] BztwkrgXDXFMZXFML0414-40-54 16:54:004.23[facility] VQLQJCGLCY2572-45-69 16:54:0013.0[facility] FogiyoyRZCHMOWLEK5086-66-56 16:54:00 38.8[facility] FgjxtgnLKZDKWISAU2849-35-12 16:54:0091.8[facility] HermannHEMATOLOGY 2019-08-04 16:54:00 Test Item Value Reference Range Interpretation Comments MCH (test code = MCH) 30.8 pg 27.0-31.0 [facility] YhumlyoBGPGOQBAFY7490-50-77 16:54:0033.6[facility] HermannHEMATOLOGY 2019-08-04 16:54:0013.1[facility] NzdqzaoVEKLWXXCXL2886-13-42 16:54:47448Wrjspsbo RedvstuPLLVFIOWCP2760-80-48 16:54:007.9[facility] PcbwtprGCPLGFFTJH8297-77-80 16:54:00 Test Item Value Reference Range Interpretation Comments PT (test code = PT) 14.0 s 12.0-14.7 [facility] LvtkhjvRIHTYOQCAY4597-79-60 16:54:00 Test Item Value Reference Range Interpretation Comments INR (test code = INR) 1.08 1 0.85-1.17 [facility] YrbttneOFMYLEZCFM7040-57-90 16:54:00 Test Item Value Reference Range Interpretation Comments PTT (test code = PTT) 31.5 s 22.9-35.8 [facility] HermannTUMOR ENCCTIU3744-56-82 16:54:003.8[facility] HermannCHEM PANEL 2019-07-21 14:26:82051Pwbfkrcr HermannCHEM UGTHN1514-72-94 14:26:0025[facility] HermannCHEM VFXEL6245-81-57 14:26:002.91[facility] HermannCHEM WOEPM8626-89-02 14:26:93624Nmtqzlyb HermannCHEM OCMIP1058-56-39 14:26:004.4[facility] HermannCHEM WOVWR5388-39-05 14:26:47213Aarsgigm HermannCHEM YVQCG5728-65-39 14:26:0020 [facility]annCHEM NGMJI5498-13-12 14:26:008.1[facility] HermannCHEM PANEL 2019-07-21 14:26:006.9[facility] HermannCHEM RPQQB5610-89-18 14:26:003.2[facility] HermannCHEM WBMIK3102-20-65 14:26:0018[facility] HermannCHEM EHUZA2981-51-99 14:26:0022[facility] HermannCHEM OLDWA5631-09-14 14:26:57143Lvapofsr HermannCHEM MECSU5383-39-22 14:26:001.1[facility] HermannCHEM BYWTN9969-30-86 14:26:0016.4 [facility]annCHEM VSUGS8382-43-94 14:26:00 Test Item Value Reference Range Interpretation Comments B/C Ratio (test code = B/C Ratio) 9 1 6-25 [facility]annCHEM TYJHL7568-77-16 14:26:003.7[facility] HermannCHEM PANEL 2019-07-21 14:26:00 Test Item Value Reference Range Interpretation Comments A/G Ratio (test code = A/G Ratio) 0.9 1 0.7-1.6 [facility]annCHEM YOADK2264-60-23 14:26:0021[facility] HermannCHEM PANEL 2019-07-21 14:26:001.9[facility] HermannCHEM JNEJA2211-68-16 14:26:003.2[facility] BcsfggfJLDLIPUQSS1864-57-12 14:26:0065.7[facility] YqzzgicWIDONIXYXC1732-85-80 14:26:0021.4[facility] CpqksioREOTHNJXXW0425-24-22 14:26:009.6[facility] MKREJATKHJ6208-21-43 14:26:002.1[facility] MkhotbkDALGSHLMZF8035-30-33 14:26:001.2 [facility] ZxcflrnGDOFXYIUHG5247-80-90 14:26:003.7[facility] HermannHEMATOLOGY 2019-07-21 14:26:001.2[facility] KpvyrqrOLZSVQENNB8505-04-97 14:26:000.5[facility] PmucchsBDLPIZMOSQ5107-62-48 14:26:000.1[facility] NavjycmXNAFLMFZEA2755-82-82 14:26:000.1[facility] ErniehmBJGJOTMHHX9227-05-27 14:26:00 Test Item Value Reference Range Interpretation Comments PT (test code = PT) 14.5 s 12.0-14.7 [facility] QthixbuZAHKKBFPYA4788-66-09 14:26:00 Test Item Value Reference Range Interpretation Comments INR (test code = INR) 1.12 1 0.85-1.17 [facility] VknyxouNJWULZGIQU9069-69-45 14:26:00 Test Item Value Reference Range Interpretation Comments PTT (test code = PTT) 29.6 s 22.9-35.8 [facility] OorykxsEMBIOZMXTZ7723-99-72 14:26:005.6[facility] HermannHEMATOLOGY 2019-07-21 14:26:004.14[facility] SqfoemxMQSCNWUHQV2081-94-49 14:26:0012.9[facility] RrmxsyhFOYMPCOTQX2317-22-13 14:26:0038.2[facility] LwkqkqdRZLOSXBDGQ3264-91-30 14:26:0092.2[facility] WneqzrtGYKYRQBCSR5190-45-62 14:26:00 Test Item Value Reference Range Interpretation Comments MCH (test code = MCH) 31.1 pg 27.0-31.0 [facility] DbquuygLIHMBFRQWA7587-49-83 14:26:0033.7[facility] HermannHEMATOLOGY 2019-07-21 14:26:0013.6[facility] VsrzzrcNEHCBLXOCV9303-25-54 14:26:44458Zcqzdvhv XiztfgqGXTVDRWOXN3610-80-18 14:26:007.9[facility] HermannTUMOR ZJEMLGL3692-29-94 14:26:004.6[facility] HermannCHEM AWLJX6767-68-50 16:22:002.8[facility] HermannCHEM CNRYI7711-05-29 16:22:001.9[facility] HermannCHEM AFFTS1713-72-26 16:22:87041 [facility]annCHEM FMRTH4325-35-90 16:22:0024[facility] HermannCHEM PANEL 2019-07-07 16:22:002.72[facility] HermannCHEM CRGLI2599-31-45 16:22:71750Mnyctfmw HermannCHEM FBHBG6875-89-33 16:22:004.5[facility] HermannCHEM NWZFR8090-68-32 16:22:77281Rjxvkcuq HermannCHEM FSEUN2017-43-82 16:22:0023[facility] HermannCHEM HRWVB7322-43-98 16:22:0015.5[facility] HermannCHEM IESQV6931-32-28 16:22:009.3 [facility]annCHEM PJRTC5029-74-88 16:22:00 Test Item Value Reference Range Interpretation Comments B/C Ratio (test code = B/C Ratio) 9 1 6-25 [facility] HermannCHEM OKZKH2822-17-29 16:22:006.8[facility] HermannCHEM PANEL 2019-07-07 16:22:003.3[facility] HermannCHEM SQRHJ1442-47-39 16:22:003.5[facility] HermannCHEM GYZED9829-39-82 16:22:00 Test Item Value Reference Range Interpretation Comments A/G Ratio (test code = A/G Ratio) 0.9 1 0.7-1.6 [facility] HermannCHEM KZPYD1848-23-60 16:22:0024[facility] HermannCHEM PANEL 2019-07-07 16:22:0021[facility] HermannCHEM RNUOC9248-13-23 16:22:68699Hvvdxift HermannCHEM HKAZI2471-80-89 16:22:001.0[facility] HermannCHEM LWKFL1014-57-75 16:22:0023[facility] BxrzqthEMSWRTIYPC1032-65-67 16:22:00 Test Item Value Reference Range Interpretation Comments PT (test code = PT) 14.6 s 12.0-14.7 [facility] LrbthgeWFUVOHCZUK1709-46-13 16:22:00 Test Item Value Reference Range Interpretation Comments INR (test code = INR) 1.13 1 0.85-1.17 [facility] MiuzzduMGSJSFHRGN9909-32-50 16:22:00 Test Item Value Reference Range Interpretation Comments PTT (test code = PTT) 29.8 s 22.9-35.8 [facility] GsxxlpvDSHBZHQRWO6517-08-09 16:22:005.2[facility] HermannHEMATOLOGY 2019-07-07 16:22:003.91[facility] UrhkfwbGIOKZBAWMN4044-87-76 16:22:0012.1[facility] AmrewefWTXUEWHHGI3809-02-90 16:22:0036.0[facility] ZkvuhpoWPJKJLWKJO3966-56-40 16:22:0092.1[facility] PogykfcZDMVTTNBFR8347-60-09 16:22:00 Test Item Value Reference Range Interpretation Comments MCH (test code = MCH) 31.0 pg 27.0-31.0 [facility] PgtpthwDOTVVHUBEM2335-19-58 16:22:0033.7[facility] HermannHEMATOLOGY 2019-07-07 16:22:0013.0[facility] BngamsiGEHOFIIVGK1718-38-29 16:22:81567Geqptxkc KdrfddjMPTTGAUAJH7803-56-15 16:22:008.4[facility] EsqvsdaKUJLKUHSAO1878-70-24 16:22:0068.8[facility] GfzttwuSOPLLUJDIO9513-10-68 16:22:0021.7[facility] QPWUHYTOJO2049-00-96 16:22:007.5[facility] YcehllsTSJTXFSBDF0305-19-58 16:22:001.4 [facility] OvysupvHXEUABBLWC9163-26-44 16:22:000.6[facility] HermannHEMATOLOGY 2019-07-07 16:22:003.6[facility] KryicaaGECMMEKLGU2449-11-35 16:22:001.1[facility] KwhofzbIASLGILFFA4299-63-18 16:22:000.4[facility] KtbkegzNYFFMJNYKU6124-45-52 16:22:000.1[facility] HermannTUMOR SRCDFLH8640-39-33 16:22:004.8[facility] GNMHDBNFJB7266-71-28 15:54:0025[facility] TffifkhWWDHZGCBDH6274-72-98 15:54:00 Positive *ABN*(06/09/19 9:54 AM)[facility] JnoelqdAMDSFSMLZG3603-94-77 15:54:00 <2.9[facility] NtelwpzHHJJUNVTZH5998-52-51 15:54:00<10[facility] FSDTPMJGSS8735-93-21 15:54:001:40 *ABN*(06/09/19 9:54 AM)[facility] HermannCHEM JMYDA6327-15-23 14:32:18028Hyohoztz HermannCHEM KKCYR2245-53-08 14:32:0058 [facility]annCHEM DLNEQ0566-62-16 14:32:003.75[facility] HermannCHEM PANEL 2019-06-09 14:32:80350Duwjcjvs HermannCHEM IIEPA9835-10-82 14:32:005.0[facility] HermannCHEM CSDII0298-97-82 14:32:80275Sfgtaomw HermannCHEM QDXNH4162-30-11 14:32:0019[facility] HermannCHEM OWRCJ1551-23-56 14:32:0020.0[facility] HermannCHEM QHZLA0957-23-79 14:32:007.3[facility] HermannCHEM RWQEH0812-63-20 14:32:00 Test Item Value Reference Range Interpretation Comments B/C Ratio (test code = B/C Ratio) 15 1 6-25 [facility]annCHEM FHTMX6453-48-62 14:32:006.5[facility] HermannCHEM PANEL 2019-06-09 14:32:003.1[facility] HermannCHEM MUMNY3473-26-27 14:32:003.4[facility] HermannCHEM OOWWS3070-10-85 14:32:00 Test Item Value Reference Range Interpretation Comments A/G Ratio (test code = A/G Ratio) 0.9 1 0.7-1.6 [facility]annCHEM JGNUF5933-94-54 14:32:0025[facility] HermannCHEM PANEL 2019-06-09 14:32:0018[facility] HermannCHEM RTIRC6751-05-49 14:32:85296Sbihwods HermannCHEM YJWDL7995-70-30 14:32:000.9[facility] HermannCHEM IEQPG6413-94-46 14:32:0016[facility] HermannCHEM DRADZ2879-64-87 14:32:001.8[facility] HermannCHEM WCZDC8895-04-95 14:32:003.9[facility] EzmkkyfHOVKVPJSBR6177-48-44 14:32:005.6 [facility] ZecbaqaTQFIYZRDML5589-68-55 14:32:003.59[facility] HermannHEMATOLOGY 2019-06-09 14:32:0011.3[facility] WgdrwnqNTXYCTKNWX1772-11-73 14:32:0033.5[facility] IciyxyeKFCXNHMJUS2477-25-70 14:32:0093.4[facility] EdvllthHGMXUTENQX3141-79-19 14:32:00 Test Item Value Reference Range Interpretation Comments MCH (test code = MCH) 31.6 pg 27.0-31.0 [facility] FnogjeqWRGVPJSJET9046-92-64 14:32:0033.8[facility] HermannHEMATOLOGY 2019-06-09 14:32:0012.8[facility] VzerghgODQDULJCAI6703-26-89 14:32:88098Upbgtgai OhltfpyBEBYBSENLX1584-70-00 14:32:008.7[facility] BptumveKIMNFDLWGL1211-44-63 14:32:00 Test Item Value Reference Range Interpretation Comments PTT (test code = PTT) 28.9 s 22.9-35.8 [facility] UhqzpoxZTFYFHGVKL1827-30-15 14:32:00 Test Item Value Reference Range Interpretation Comments PT (test code = PT) 14.8 s 12.0-14.7 [facility] FztxoriIGAHAADORB7677-51-89 14:32:00 Test Item Value Reference Range Interpretation Comments INR (test code = INR) 1.15 1 0.85-1.17 [facility] DgtjkgmYSHAYDIFEI2391-15-23 14:32:0065.7[facility] HermannHEMATOLOGY 2019-06-09 14:32:0021.0[facility] XtgtjcaWZAKSQHZSB9264-34-48 14:32:0010.2[facility] XehppggULAZKHMKDF0255-51-69 14:32:002.1[facility] XlptvzeKNDFZQQLMP4183-85-04 14:32:001.0[facility] FregzoyZPIQKRLXBP9054-83-88 14:32:003.7[facility] JMOCCLYQRU0586-04-63 14:32:001.2[facility] CvsuyilKBNAZNLJQC8796-78-19 14:32:000.6 [facility] WlgvgbnQBSRTJQNGR8361-35-36 14:32:000.1[facility] HermannHEMATOLOGY 2019-06-09 14:32:000.1[facility] HermannTUMOR FKPULSH3364-95-46 14:32:005.5 [facility] HermannCARDIAC QZGUSCU3720-76-08 14:05:0079[facility] HermannCHEM PANEL 2019-05-26 16:32:0039[facility] HermannCHEM OKCVU6114-11-06 16:32:002.51[facility] HermannCHEM DTDWM6028-48-44 16:32:17106Dtuepuqa HermannCHEM JLPLZ1893-74-07 16:32:004.5[facility] HermannCHEM YNKSX7693-50-45 16:32:06543Xhfkaiun HermannCHEM SSGZM5580-27-33 16:32:0022[facility] HermannCHEM JLOIK2683-30-91 16:32:0016.5 [facility] HermannCHEM ZOMQX6460-87-11 16:32:008.7[facility] HermannCHEM PANEL 2019-05-26 16:32:00 Test Item Value Reference Range Interpretation Comments B/C Ratio (test code = B/C Ratio) 16 1 6-25 [facility] HermannCHEM MKXQC7307-70-96 16:32:006.9[facility] HermannCHEM PANEL 2019-05-26 16:32:003.2[facility] HermannCHEM OBDTE1398-06-50 16:32:003.7[facility] HermannCHEM RNKXA5220-32-91 16:32:00 Test Item Value Reference Range Interpretation Comments A/G Ratio (test code = A/G Ratio) 0.9 1 0.7-1.6 [facility]annCHEM RYBDG1400-27-03 16:32:0025[facility] HermannCHEM PANEL 2019-05-26 16:32:0015Mem[facility] HermannCHEM RLTCU8472-43-37 16:32:95115Krrudxzs HermannCHEM ZMCTD3920-15-28 16:32:001.1[facility] HermannCHEM MRRLH2709-35-22 16:32:0026[facility] HermannCHEM WTSSE4104-04-37 16:32:58261Zdwnoxea HermannCHEM UDGGL7012-99-24 16:32:001.8[facility] HermannCHEM RIOOP4246-23-58 16:32:003.7 [facility] UdelisoQYXPJZPXRI1533-17-04 16:32:0071.2[facility] HermannHEMATOLOGY 2019-05-26 16:32:0015.8[facility] NojmwbtOQJVWHROXU1877-48-80 16:32:0011.0[facility] OmicfkeHJRWWQKGLY3978-91-83 16:32:001.3[facility] QalxovgQZXOVRHXOA3074-75-88 16:32:000.7[facility] MusqivvBHIJHSPGIG7812-86-22 16:32:003.9[facility] ICOONINVKG2417-35-13 16:32:000.9[facility] ByzyqknEBTJLKDUAJ3485-80-70 16:32:000.6 [facility] SmvhxroCBMFMWHMEA3688-78-32 16:32:000.1[facility] HermannHEMATOLOGY 2019-05-26 16:32:005.4[facility] EyjrzwvOUISSWQSFD4243-58-94 16:32:003.65[facility] LnlsalxUZVMKQEPVC2544-34-82 16:32:0011.6[facility] RebeppkKKIFCHTQWG2481-73-88 16:32:0034.1[facility] EpkipekVVYFBMCWAV5596-37-87 16:32:0093.3[facility] ORAXBLKHWZ3447-38-18 16:32:00 Test Item Value Reference Range Interpretation Comments MCH (test code = MCH) 31.7 pg 27.0-31.0 [facility] OomepuwRKQFYYHAUA8072-01-80 16:32:0034.0[facility] HermannHEMATOLOGY 2019-05-26 16:32:0012.8[facility] ZycggrlXDQQKZJNDC8437-64-90 16:32:0093[facility] BfmemotANXIGSRIJM5173-60-59 16:32:008.4[facility] YxjajjcJNECGIMWAQ1605-37-22 16:32:00 Test Item Value Reference Range Interpretation Comments PT (test code = PT) 14.6 s 12.0-14.7 [facility] JrcgcorETFGINGTNF3314-56-00 16:32:00 Test Item Value Reference Range Interpretation Comments INR (test code = INR) 1.13 1 0.85-1.17 [facility] YjtrnnuIRSRJDRNHX6636-30-35 16:32:00 Test Item Value Reference Range Interpretation Comments PTT (test code = PTT) 32.7 s 22.9-35.8 [facility]annTUMOR VWFKVFJ1408-34-57 16:32:006.2[facility] HermannCHEM PANEL 2019-04-27 18:57:63629Okuluoxh HermannCHEM KKNPJ3026-16-72 18:57:0040[facility]annCHEM JJPYN1708-32-05 18:57:002.16[facility]annCHEM OGYSO0960-97-64 18:57:76927Twfksnlj HermannCHEM DYMGJ3149-04-93 18:57:005.0[facility] HermannCHEM TAOAA2208-42-91 18:57:44192Pstlqfbr HermannCHEM LJRJA5168-78-41 18:57:0025 [facility]annCHEM PDXED8140-60-24 18:57:009.2[facility]annCHEM PANEL 2019-04-27 18:57:0031[facility]annCHEM QXTOW0338-32-51 18:57:006.7[facility]annCHEM DLWMY4532-76-67 18:57:003.2[facility]annCHEM XFLCD5815-01-12 18:57:0028[facility]annCHEM RXDXT1360-12-31 18:57:0027[facility]annCHEM NXIHG5387-66-15 18:57:23314Bftglpme HermannCHEM QBSMQ3719-91-44 18:57:001.0 [facility]annCHEM MOGBK1479-07-11 18:57:0014.0[facility]annCHEM PANEL 2019-04-27 18:57:00 Test Item Value Reference Range Interpretation Comments B/C Ratio (test code = B/C Ratio) 19 1 6-25 [facility]annCHEM JIPXS4055-51-58 18:57:003.5[facility]annCHEM PANEL 2019-04-27 18:57:00 Test Item Value Reference Range Interpretation Comments A/G Ratio (test code = A/G Ratio) 0.9 1 0.7-1.6 [facility]annCHEM GUANC6749-74-68 18:57:002.0[facility]annCHEM PANEL 2019-04-27 18:57:003.7[facility] MfuekyaRWSJTHIWDA4940-06-94 18:57:005.9[facility] BohgrwxASTRECTXNV7437-49-94 18:57:003.79[facility] FelyxnvHYQNSWNVDD8649-12-90 18:57:0012.1[facility] MhoqwtuMQSQGTZSMQ0352-32-24 18:57:0035.7[facility] Melvin ZOTPISWSLV8976-81-32 18:57:0094.4[facility] JklvtmiDLYDNQYGMZ0217-01-43 18:57:00 Test Item Value Reference Range Interpretation Comments MCH (test code = MCH) 31.8 pg 27.0-31.0 [facility] CdhgrvdNRDMDPHLCL0715-25-46 18:57:0033.7[facility]annHEMATOLOGY 2019-04-27 18:57:0013.3[facility] GdrsbncNSQXQOBJDU9777-38-42 18:57:75605Fbguczhb RrclmsjOGERNOTJDS7454-58-88 18:57:007.7[facility] FrybdnmPNDIYDFLOE0381-44-38 18:57:00 Test Item Value Reference Range Interpretation Comments INR (test code = INR) 1.07 1 0.85-1.17 [facility] CghbelrWEZHCGKAUQ0146-59-73 18:57:00 Test Item Value Reference Range Interpretation Comments PT (test code = PT) 13.9 s 12.0-14.7 [facility] FfaxmilQSPDFACXWP3050-22-63 18:57:00 Test Item Value Reference Range Interpretation Comments PTT (test code = PTT) 31.6 s 22.9-35.8 [facility] UthairrZXWRCPZTAI4186-94-63 18:57:0067.3[facility]annHEMATOLOGY 2019-04-27 18:57:0021.0[facility] PratsdxZVNNNFBIJY7094-86-33 18:57:009.0[facility] PizybraBZMJLSUKCQ7824-53-02 18:57:002.1[facility] EzizmwkZSLUEXJMDL3116-65-11 18:57:000.6[facility] TokaffxMKNJDEEREL5656-45-36 18:57:004.0[facility] VCMKPAHBHT9742-62-66 18:57:001.2[facility] JahfldkETPKTGJLUE7423-38-84 18:57:000.5 [facility] TqrpciwEZFYPORDMX2041-48-93 18:57:000.1[facility] HermannTUMOR MARKERS 2019-04-27 18:57:005.4[facility] HermannCHEM BPWFF8205-32-74 15:09:001.8[facility] HermannCHEM LMRVG2802-59-17 15:09:003.5[facility] JdonhxkAMGIQXNQGHTM4892-44-30 15:09:0013.6[facility] BoeqlotVONRQAQMPJEZ0983-10-09 15:09:00 Test Item Value Reference Range Interpretation Comments B/C Ratio (test code = B/C Ratio) 18 1 6-25 [facility] ZymnhfoJPIFTPRWPCSG1712-56-72 15:09:003.6[facility] HermannELECTROLYTES 2019-04-14 15:09:00 Test Item Value Reference Range Interpretation Comments A/G Ratio (test code = A/G Ratio) 0.8 1 0.7-1.6 [facility] UfukcnzADTRDYPBTLDC6972-76-63 15:09:95749Ikmthqws HermannELECTROLYTES 2019-04-14 15:09:0039[facility] YwcjnpsHULTGLBIGZSW7487-20-41 15:09:002.15[facility] JrtlugfUDSHITTXUNHS8193-80-46 15:09:87569Ertpdhlx WscbusqEZTGEOTLGOJG4174-55-57 15:09:004.6[facility] FymbrduLFDWUEOSMCOD6027-78-00 15:09:55234Tykudtbu Lanse ZJXUPZWYVMAU4291-60-40 15:09:0026[facility] CthtpuuOXTZKRNBFLFB7049-05-83 15:09:00 9.2[facility] ElhlbmfNKTVRVOZGZZJ9669-18-44 15:09:0031[facility] HermannELECTROLYTES 2019-04-14 15:09:006.5[facility] BzdbkrtZVQFPBLNTTUS2125-30-24 15:09:002.9[facility] VpuhvdcIHXPGXZYEDZV3044-18-39 15:09:0033[facility] SsecaivIVTRINZWLXAV2608-19-62 15:09:0035[facility] NtdjsatZBCBLTFJEACE6068-02-31 15:09:46013Wnwvbrnf Melvin BFCOXTPIOKWI2615-03-69 15:09:000.7[facility] FelninuBHCKIYPEOZ7370-04-40 15:09:00 66.6[facility] KxyjgtlBJKILJFSIW2188-55-01 15:09:0019.8[facility]annHEMATOLOGY 2019-04-14 15:09:0010.3[facility] ZwxswnnZXDPYWTPIL1731-07-11 15:09:002.5[facility] MujuvttBIXMFQUNKP4007-44-23 15:09:000.8[facility] NtyxsgkWZAZGRSILN4735-76-26 15:09:003.8[facility] UwzbjzrJMDUOQLSLK9557-52-87 15:09:001.1[facility] KMXBWUHFGE5414-12-20 15:09:000.6[facility] StyqrreLUGPFTONPG5799-95-50 15:09:000.1 [facility] OkkmwbsEAUMYSOMXJ6075-65-20 15:09:005.8[facility] HermannHEMATOLOGY 2019-04-14 15:09:003.69[facility] ZguxjbmPXRFMESZGZ9183-29-86 15:09:0011.9[facility] MxylpmuDYMPJSJRFG4923-89-39 15:09:0035.3[facility] DajgcfePRMQVVZUDD2442-24-64 15:09:0095.6[facility] OvkwoutDSAJSRIVEG9806-01-82 15:09:00 Test Item Value Reference Range Interpretation Comments MCH (test code = MCH) 32.3 pg 27.0-31.0 [facility] CsthbvtXIAXXHETRJ1005-62-35 15:09:0033.8[facility] HermannHEMATOLOGY 2019-04-14 15:09:0013.7[facility] OusmygrINEYOJOELD2205-25-66 15:09:24262Fpeznurp AorwyhnYJHGPPBAEJ5605-35-10 15:09:008.4[facility] WyyffxgCTBXDNSRHX5733-92-78 15:09:00 Test Item Value Reference Range Interpretation Comments INR (test code = INR) 1.10 1 0.85-1.17 [facility] AyaqipgPNUCBHZDDY5254-11-96 15:09:00 Test Item Value Reference Range Interpretation Comments PT (test code = PT) 14.0 s 12.0-14.7 [facility] ZijmakfNGSXVHHZLI6806-29-90 15:09:00 Test Item Value Reference Range Interpretation Comments PTT (test code = PTT) 30.3 s 22.9-35.8 [facility] LFNYQ4502-34-86 14:00:00Yellow *NA*(03/31/19 8:00 AM) [facility] DBMAX7468-04-98 14:00:00Clear (03/31/19 8:00 AM) [facility] MJUTV4186-25-31 14:00:00 Test Item Value Reference Range Interpretation Comments UA Spec Grav (test code = UA Spec 1.015 1 Grav) [facility] WJTGN7037-55-92 14:00:00 Test Item Value Reference Range Interpretation Comments UA pH (test code = UA pH) 5.5 1 5.0-8.0 [facility] IOBNJ7295-65-11 14:00:00Negative (03/31/19 8:00 AM) [facility] LCJNG8647-07-40 14:00:00Negative *NA*(03/31/19 8:00 AM)[facility] SPMMN6532-09-46 14:00:00Negative *NA*(03/31/19 8:00 AM)[facility] AUSJN0047-09-24 14:00:00Trace *ABN*(03/31/19 8:00 AM)[facility] LRXSL5290-30-39 14:00:000.2[facility] IHOOZ6577-77-19 14:00:00Negative (03/31/19 8:00 AM)[facility] MPLMR6365-75-52 14:00:00Negative (03/31/19 8:00 AM)[facility] FNTIJ3822-65-05 14:00:00None Seen (03/31/19 8:00 AM)[facility] IUQZF0576-99-62 14:00:000-2 (03/31/19 8:00 AM)[facility]annCHEM PANEL 2019-03-31 13:25:0054[facility]annCHE[facility] QYXCK7390-48-38 13:25:0042[facility]annCHE[facility] FYPSX4373-06-08 13:25:002.18[facility]CHE[facility] JUFUJ9778-28-99 13:25:53853Rqrvwkwp [facility]annCHE[facility] PJCDJ9318-01-98 13:25:004.4[facility]annCHE[facility] VJQDT4696-67-46 13:25:14146Iypmgsfy [facility]annCHEM WVAAV4033-77-72 13:25:0027 [facility] IBKTU6192-89-89 13:25:008.7[facility]annCHEM PANEL 2019-03-31 13:25:0014.4[facility]annCHE[facility] WBTXC4000-67-58 13:25:00 Test Item Value Reference Range Interpretation Comments B/C Ratio (test code = B/C Ratio) 19 1 6- [facility] XXGHY1315-95-34 13:25:0030[facility]annCHEM PANEL 2019-03-31 13:25:006.6[facility]annCHE[facility] WTICX2507-80-21 13:25:003.0[facility]annCHE[facility] IFOFO6202-06-86 13:25:0021[facility]annCHE[facility] FJCIQ3519-97-89 13:25:0026[facility]annCHE[facility] KXCGW8867-23-58 13:25:68331Joslkuwn HermannCHEM UGDXX0614-28-33 13:25:000.7[facility]annCHE[facility] AFDEU7632-24-75 13:25:003.6 [facility] BTAKX2110-55-02 13:25:00 Test Item Value Reference Range Interpretation Comments A/G Ratio (test code = A/G Ratio) 0.8 1 0.7-1.6 [facility] NUFJN8673-15-58 13:25:001.8[facility]annCHEM PANEL 2019-03-31 13:25:003.0[facility] RgtelexWNLTOTHOIG4822-43-69 13:25:007.2[facility] ErjjhrkDIWJTLRHNB7404-30-79 13:25:003.88[facility] KepqhkuBJVGZNDSLO8048-73-73 13:25:0012.4[facility] NkylxflHDJFZQUGYC9122-96-19 13:25:0037.2[facility] RCHUXMTPMP6066-66-52 13:25:0095.7[facility] KuneqdgWBIXEGGKOB4183-88-86 13:25:00 Test Item Value Reference Range Interpretation Comments MCH (test code = MCH) 32.0 pg 27.0-31.0 [facility] LlkrdddATEOLOQRFK7193-56-54 13:25:0033.4[facility]annHEMATOLOGY 2019-03-31 13:25:0013.7[facility] WrjovfyVXWMMGJDWX7873-80-91 13:25:87183Zvoxsfof EcxexnoCERSUPTJJQ5614-13-84 13:25:008.3[facility] VnyeazkWKWVVZOXPP0046-92-86 13:25:0058.5[facility] MfbwwuvRPQCXRFPAM9712-52-71 13:25:0026.4[facility] TOJPDJMGIE4129-99-61 13:25:0011.6[facility] MxyuwdgRUUOYFHZML1929-41-07 13:25:00 2.6[facility] UmvfiohYMZYZERXZP4953-56-15 13:25:000.9[facility]annHEMATOLOGY 2019-03-31 13:25:004.2[facility] LcqjfglWOPFGFBZSQ7398-86-34 13:25:001.9[facility] YlqnyarVBQZQYIIOK0386-86-72 13:25:000.8[facility] GpysecwYVPPHFSYHU7704-90-35 13:25:000.2[facility] DbhgvjmRPAHXFAASX6337-25-73 13:25:000.1[facility] HermannTUMOR UFFEXAW0153-28-83 13:25:0012.6[facility] HermannSPECIAL JEIACHICQ1719-06-07 21:41:006.8[facility] HermannCHEM AGCLH2532-05-17 15:00:001.9[facility]annCHEM PHBFJ2109-19-50 15:00:003.1[facility] MfrcfdlVZLSYWFBSGSW0187-98-65 15:00:0010.9 [facility] SreoalpULDNAHVMQKZI0468-30-72 15:00:00 Test Item Value Reference Range Interpretation Comments B/C Ratio (test code = B/C Ratio) 18 1 6-25 [facility] OrjoudiMPKHBLYTQWNC0048-80-02 15:00:003.6[facility] HermannELECTROLYTES 2019-03-17 15:00:00 Test Item Value Reference Range Interpretation Comments A/G Ratio (test code = A/G Ratio) 0.8 1 0.7-1.6 [facility] XmgcaqqOXNAYTPKKIMK2054-45-15 15:00:00574Haxzmocb HermannELECTROLYTES 2019-03-17 15:00:0043[facility] KkxuwdaGXEUYJVIPWAK9206-93-06 15:00:002.42[facility] OmdsrluYZXQYUZYDGYB1927-79-82 15:00:07834Uzrpkrdv RcnpgvrMKGBKIACAXSH4592-61-43 15:00:004.9[facility] EadjejkUBEDASMWZUWI9500-76-19 15:00:54777Zonfseia Melvin VSZRDWUHYFMR2112-92-08 15:00:0028[facility] ZsueozcZDJPLZSRDIFQ9214-49-42 15:00:00 8.6[facility] PzimjbhJNZDVGGSMLJY6225-13-13 15:00:0027[facility]annELECTROLYTES 2019-03-17 15:00:006.4[facility] ZnhpcchWUXRVQONNYNS0654-56-99 15:00:002.8[facility] BxtbypsKRNZIPIWQINB1746-09-62 15:00:0021[facility] YvbdpzbKDMSCROTMIWH5819-17-30 15:00:0025[facility] ZsdwyhvFAHAASBBXBZL1636-06-66 15:00:04021Jdupqzjc Melvin AWADDFATLLAU5114-77-14 15:00:001.0[facility] NgsakhlKBZNDOJCJV5406-22-43 15:00:00 64.9[facility] VmkpiekWGANPCXPRB6647-68-79 15:00:0021.2[facility] HermannHEMATOLOGY 2019-03-17 15:00:0010.4[facility] OxmykrwIZFZJBLHUF8185-33-35 15:00:002.4[facility] PgwdoimIINVLZAYQH7284-44-41 15:00:001.1[facility] AvbuhrbHCKZIYRCZR6420-15-64 15:00:004.1[facility] IgwsyxgSMARQELTAM9445-68-08 15:00:001.3[facility]se SVZFMMVIPD0502-95-58 15:00:000.7[facility] EiiwgfbTNWCFPSGNR2998-29-52 15:00:000.1 [facility] ZsdmqqoXBIEGKKRBJ3459-33-76 15:00:000.1[facility] HermannHEMATOLOGY 2019-03-17 15:00:006.3[facility] VycxqvvBLEUFGCASL7187-60-77 15:00:003.84[facility] FcawpetBERVXFWULG3038-73-53 15:00:0012.5[facility] YonyxelXKKHLSVLTT7457-37-35 15:00:0036.9[facility] MdbrlmiWPOTLEHEPQ2932-07-58 15:00:0096.1[facility] YZMRRNPNYD7078-59-79 15:00:00 Test Item Value Reference Range Interpretation Comments MCH (test code = MCH) 32.4 pg 27.0-31.0 [facility] EojgpwrIRICJFEVYE8982-80-39 15:00:0033.7[facility] HermannHEMATOLOGY 2019-03-17 15:00:0013.8[facility] AnfoqpwPWBJFHWXRB5234-48-99 15:00:32049Vpxgefvy XowhywnTKQGTIPOVR3616-43-75 15:00:007.3[facility] AajtacxVEBZYEXYDD1153-53-27 15:00:00 Test Item Value Reference Range Interpretation Comments INR (test code = INR) 1.10 1 0.85-1.17 [facility] OmsotxrSRTYDBOPJL6970-34-95 15:00:00 Test Item Value Reference Range Interpretation Comments PT (test code = PT) 14.0 s 12.0-14.7 [facility] CkvknscVVWWTWXSAB5022-57-48 15:00:00 Test Item Value Reference Range Interpretation Comments PTT (test code = PTT) 30.6 s 22.9-35.8 [facility]annTUMOR MEUIYGS8558-47-00 15:00:0091.5[facility] HermannCHEM PANEL 2019-03-03 14:45:003.0[facility] HermannCHEM QQXET7857-72-91 14:45:001.8[facility] QrosyboXHFOLDDOADYY7395-51-88 14:45:0013.4[facility] OrwsmljXVLWQEVCCTNW7702-99-25 14:45:00 Test Item Value Reference Range Interpretation Comments B/C Ratio (test code = B/C Ratio) 14 1 6-25 [facility] XngiacyDOYDSHOXYLEX7231-52-28 14:45:003.6[facility] HermannELECTROLYTES 2019-03-03 14:45:00 Test Item Value Reference Range Interpretation Comments A/G Ratio (test code = A/G Ratio) 0.8 1 0.7-1.6 [facility] JfofocqCHGUOSCSTUFP3294-45-71 14:45:0095[facility] HermannELECTROLYTES 2019-03-03 14:45:0028[facility] JaiqobsWHRPKITEKRSA8279-97-19 14:45:001.94[facility] BxzmyjbQCWCCUXMIJXP7965-81-39 14:45:87572Gelaypaw IrcueyaCXALGGZLPEOV7753-95-06 14:45:004.4[facility] OkrnktcYZSDHVHDYMGF3525-76-81 14:45:99321Qvbueuba Lanse UVRQCOMLRCNG1005-08-51 14:45:0025[facility] VbvsvmbVXZIAYSWNXOS5078-46-66 14:45:00 8.8[facility] AnyxxldAJUKAWFPFMAO7528-88-00 14:45:0035[facility] HermannELECTROLYTES 2019-03-03 14:45:006.4[facility] UedupdoGPWIGXTOAQXZ9314-11-37 14:45:002.8[facility] KklqkukQODAOCUVXEJN8019-58-96 14:45:0025[facility] DrycfyrKERARSCHIXRP5208-20-13 14:45:0033[facility] GliuvieHSZPGQZHXJHC7753-32-61 14:45:30947Lsxhvtdz Melvin IKKKIKBXVRYE7268-93-55 14:45:001.0[facility] PslcnjsWKTGYEBCBB7604-94-43 14:45:00 5.6[facility] LdceqpdATMDWREUND3374-19-86 14:45:003.58[facility] HermannHEMATOLOGY 2019-03-03 14:45:0011.7[facility] UyiuefkEABSGHKRWR9430-06-84 14:45:0034.4[facility] ObuvxvvBWBXSFZOLY3610-83-77 14:45:0096.1[facility] VcrchgkZOLQQZBJLR0574-49-82 14:45:00 Test Item Value Reference Range Interpretation Comments MCH (test code = MCH) 32.7 pg 27.0-31.0 [facility] NyksdsyZMJXINYOSV4305-92-87 14:45:0034.0[facility] HermannHEMATOLOGY 2019-03-03 14:45:0013.7[facility] ExawzloEGZFTSWGBM1437-99-20 14:45:0089[facility] MauvqijOMMLNHWGKD0675-79-81 14:45:007.4[facility] JakwkibSIDOADAVXH5983-83-99 14:45:00 Test Item Value Reference Range Interpretation Comments PT (test code = PT) 13.7 s 12.0-14.7 [facility] YkfxvymVVNTKYFPPA4208-17-66 14:45:00 Test Item Value Reference Range Interpretation Comments PTT (test code = PTT) 29.8 s 22.9-35.8 [facility] PmybensWNUCIFCOKM8185-63-45 14:45:00 Test Item Value Reference Range Interpretation Comments INR (test code = INR) 1.07 1 0.85-1.17 [facility] GywutooOSXSJCHDMO3400-58-17 14:45:0066.0[facility] HermannHEMATOLOGY 2019-03-03 14:45:0020.3[facility] QugapkzBBFHTQWJTO2782-64-44 14:45:0010.5[facility] HgjtuuzOCWYAHWWTJ3068-01-07 14:45:002.2[facility] KphwcduCTBKBLNXBL7259-10-45 14:45:001.0[facility] HbluffmXOOERTXYMK3185-31-71 14:45:003.7[facility] IKSZGZXUNJ2713-73-75 14:45:001.1[facility] EzuurtlMQMGVOCGNA4054-37-67 14:45:000.6 [facility] NtfnqarEIEQCBKBWV4685-42-49 14:45:000.1[facility] HermannHEMATOLOGY 2019-03-03 14:45:000.1[facility] HermannTUMOR OOGSULI5515-50-21 14:45:31671.0 [facility]annCHEM SMZKC1876-69-58 17:32:21152Luivbpii HermannCHEM PANEL 2019-01-29 17:32:0047[facility] HermannCHEM GMHAB5878-90-91 17:32:003.20[facility]annCHEM BUVGR6388-85-11 17:32:34929Dpmghbcv HermannCHEM PACDO9123-20-17 17:32:004.4[facility] HermannCHEM HUTHE8312-08-29 17:32:55564Lrajrxwi HermannCHEM OOEIG8750-69-41 17:32:0023[facility]annCHEM BBOQV0234-33-40 17:32:008.9 [facility]annCHEM WJBKO5202-43-71 17:32:0019[facility]annCHEM PANEL 2019-01-29 17:32:006.8[facility] HermannCHEM OPYUR9179-33-95 17:32:003.2[facility] HermannCHEM NXBJT4071-25-22 17:32:0024[facility]annCHEM SVXJH5282-84-56 17:32:0027[facility] HermannCHEM LATGO2261-95-28 17:32:75392Nkejbwat HermannCHEM LYKHZ9795-13-49 17:32:001.7[facility] HermannCHEM YCYNH4679-98-80 17:32:0015.4 [facility]annCHEM HAZGP6500-13-40 17:32:00 Test Item Value Reference Range Interpretation Comments B/C Ratio (test code = B/C Ratio) 15 1 6-25 [facility]annCHEM IFMRO7600-59-52 17:32:003.6[facility] HermannCHEM PANEL 2019-01-29 17:32:00 Test Item Value Reference Range Interpretation Comments A/G Ratio (test code = A/G Ratio) 0.9 1 0.7-1.6 [facility]annCHEM DHQCX4267-47-18 17:32:001.6[facility] HermannCHEM PANEL 2019-01-29 17:32:003.0[facility] QwtjaofLQIKBZYOBD8416-99-44 17:32:007.1[facility] CmxbjjxNKALWVGHQS4213-08-46 17:32:004.24[facility] EosbnsgHGOSZKIRQT5545-99-62 17:32:0013.5[facility] ZipwruzHYODRQPGED3361-48-29 17:32:0039.7[facility] YXHAJCZJHG4871-40-81 17:32:0093.5[facility] DekppelNKOOBYMWWV2834-87-93 17:32:00 Test Item Value Reference Range Interpretation Comments MCH (test code = MCH) 31.8 pg 27.0-31.0 [facility]kinSszjcvsCZSHWQHUXB3882-75-39 17:32:0033.9[facility] HermannHEMATOLOGY 2019-01-29 17:32:0013.2[facility] YgntuwfVBSGFIEWCG3011-36-46 17:32:31444Wkjmjtfe BkuistdNGFFFRSJNS1149-00-78 17:32:007.8[facility] JquldbuQFHRLBKIWJ6088-23-50 17:32:00 Test Item Value Reference Range Interpretation Comments INR (test code = INR) 1.12 1 0.85-1.17 [facility]kinPgcferhYGWKPICIOJ7274-00-13 17:32:00 Test Item Value Reference Range Interpretation Comments PT (test code = PT) 14.2 s 12.0-14.7 [facility]ufkinAfuyahaTRVUEOZWRO0778-10-80 17:32:00 Test Item Value Reference Range Interpretation Comments PTT (test code = PTT) 31.2 s 22.9-35.8 [facility]ufkinFcwdqgwCOCAHWFWAS6703-01-74 17:32:0067.3[facility] HermannHEMATOLOGY 2019-01-29 17:32:0021.3[facility] IdovfwlZGUXOTJUJJ3620-43-32 17:32:008.8[facility] VfzksowJQUCUCIBII7041-16-50 17:32:001.6[facility] VhaosbaMWLOBDZJIR9606-74-33 17:32:001.0[facility] WhdroauOBHPMQADUA0315-25-21 17:32:004.8[facility] CJYPPPJAUF6487-42-11 17:32:001.5[facility] CulxaadLMSGAGNYHK0524-73-75 17:32:000.6 [facility] IqeghnvOUVFKJCNTH0673-59-22 17:32:000.1[facility] HermannHEMATOLOGY 2019-01-29 17:32:000.1[facility] HermannTUMOR JURKUNP6146-69-63 17:32:71443.9 [facility]annCHEM UBYQY2337-21-46 16:12:002.0[facility] HermannCHEM PANEL 2019-01-16 16:12:004.3[facility] QaauwwsIQSJOZCZOKUI4109-72-39 16:12:0016.7 [facility] QkgaicnGGAZAWISHTKJ7442-65-29 16:12:00 Test Item Value Reference Range Interpretation Comments B/C Ratio (test code = B/C Ratio) 16 1 6-25 [facility] ZanxjlvZNBXLQUJPOMR9084-10-26 16:12:004.0[facility] HermannELECTROLYTES 2019-01-16 16:12:00 Test Item Value Reference Range Interpretation Comments A/G Ratio (test code = A/G Ratio) 0.8 1 0.7-1.6 [facility] VwuszdeZQDWWYANQVCK0348-33-44 16:12:29359Fofeceno HermannELECTROLYTES 2019-01-16 16:12:0049[facility] TltzjdoGISFUVHDELTS6019-28-74 16:12:002.99[facility] QioxqvwDPICYTYIIHST2140-94-77 16:12:93649Jefzztii HnwrwhoJSTKQYMTVPJG4416-91-52 16:12:004.7[facility] HlbpyvgWUKIXKNIRFWB1363-90-94 16:12:15012Aozrxffl Melvin XZTPMCYOALYX3580-96-62 16:12:0024[facility] EemjsgdGYZYOXELRYQT2476-96-51 16:12:00 8.7[facility] XzsrdqrEISPEQAKQICH9961-69-10 16:12:0021[facility] HermannELECTROLYTES 2019-01-16 16:12:007.3[facility] FywapypEJDEKAKSEYTN9587-08-23 16:12:003.3[facility] IiwdgvqRVBJSUYAGDCD9711-27-04 16:12:0035[facility] XbsognyHFAPRYLTKGXV4786-26-07 16:12:0029[facility] JssulbrPFIATGLXTNMH2096-60-77 16:12:79849Xwqqcrav Melvin CUEONSYUFXAS1801-30-04 16:12:000.8[facility] GeurmldATBTPRYPUM8133-11-24 16:12:00 7.2[facility] AsyksoyNZGRGIAIIA7000-20-63 16:12:004.41[facility] HermannHEMATOLOGY 2019-01-16 16:12:0014.1[facility] SyxurxbXTGRABTPTI5083-25-67 16:12:0041.7[facility] LuqspooADBXHPZMCN4868-51-52 16:12:0094.4[facility] SqdcwkyAKNOXTHJYD1325-72-64 16:12:00 Test Item Value Reference Range Interpretation Comments MCH (test code = MCH) 32.0 pg 27.0-31.0 [facility]ufkinQjuxfqzJPKBVSGVWR5226-63-19 16:12:0033.9[facility] HermannHEMATOLOGY 2019-01-16 16:12:0013.5[facility] LvhdwziVHCXYEHETL6036-95-40 16:12:98018Hrfimmhc OhuhuluRNBKLDYZKX3215-58-09 16:12:007.[facility] SsprluoNEVOFPBOTB0345-57-23 16:12:00 Test Item Value Reference Range Interpretation Comments INR (test code = INR) 1.13 1 0.85-1.17 [facility]ufkinDfhicbvHOPAIZXSIM5959-17-68 16:12:00 Test Item Value Reference Range Interpretation Comments PT (test code = PT) 14.3 s 12.0-14.7 [facility]ufkinAfrerosJWALFTMKOO8460-09-57 16:12:00 Test Item Value Reference Range Interpretation Comments PTT (test code = PTT) 33.0 s 22.9-35.8 [facility] LufkinBirankiXVQWRNJXMA2088-48-76 16:12:0058.2[facility] HermannHEMATOLOGY 2019-01-16 16:12:0028.4[facility] GnmajdfKROBEQVZUD1877-82-29 16:12:0010.6[facility] MticagaIUVZZVWYEI9259-05-83 16:12:001.8[facility] GpfcargXSEVGICMLO1444-25-26 16:12:001.0[facility] YxffgljYPXXLHPTMK8174-45-85 16:12:004.2[facility] KLQJVWCIEI4085-45-00 16:12:002.0[facility] LozqbqsJUBWGFDWNX8062-00-09 16:12:000.8 [facility] QyblhssNIZLLPFXVV1347-10-51 16:12:000.1[facility] HermannHEMATOLOGY 2019-01-16 16:12:000.1[facility] HermannTUMOR JVTGDOQ5037-22-03 16:12:45219.0 [facility] HermannCHEM YLSDD3666-43-95 17:57:004.0[facility] HermannCHEM PANEL 2017-12-05 17:57:00 Test Item Value Reference Range Interpretation Comments A/G Ratio (test code = A/G Ratio) 0.7 1 0.7-1.6 [facility] HermannCHEM VZRED8366-75-16 17:57:79367Xxbhgist HermannCHEM PANEL 2017-12-05 17:57:000.7[facility] HermannCHEM EQOAZ7404-86-34 17:57:0026[facility] HermannCHEM VMMJP0829-77-50 17:57:000.2[facility] HermannCHEM LLIVE7809-95-62 17:57:000.5[facility] HermannCHEM GRWSH5041-61-53 17:57:0025[facility] HermannCHEM ICFKC3324-61-34 17:57:006.8[facility] HermannCHEM TBWHD7407-22-99 17:57:002.8 [facility] HermannCHEM CTUAB4827-93-00 17:57:0037[facility] HermannCHEM PANEL 2017-12-05 17:57:80062Rrrcsdkz HermannCHEM ZHJXT7414-91-24 17:57:95019Rpgodkix HermannCHEM SBEYQ9461-29-07 17:57:80297Dvqywfid HermannCHEM KDHON1358-62-36 17:57:004.3[facility] HermannCHEM HDKZT3271-63-30 17:57:0025[facility] HermannCHEM DYNWE4441-73-11 17:57:001.87[facility] HermannCHEM BLDHB7212-86-27 17:57:008.1 [facility] HermannCHEM VIHKM3484-38-00 17:57:0022[facility] HermannCHEM PANEL 2017-12-05 17:57:0014.3[facility] LymqtpqAQYCTCDBSF4495-65-82 17:57:000.3[facility] DicsivjOVQCRJNLPT9505-17-13 17:57:000.1[facility] NdfeebnHGTGKFRNRB9790-37-92 17:57:001.7[facility] WjlydydSRJTQALREN6579-62-48 17:57:005.4[facility] RRYCANKSQZ8511-92-27 17:57:000.7[facility] MmmtyzfBXOVSNOFGJ5496-65-95 17:57:000.8 [facility] DfsidtcMHHHKQXDNO8362-30-40 17:57:0066.1[facility] HermannHEMATOLOGY 2017-12-05 17:57:009.1[facility] PiqutytFBTJSIWGLG5673-38-10 17:57:003.4[facility] AcpdsvpQRYGGSWLYI9783-29-88 17:57:0020.6[facility] CpoubkqRHHYROAEJE8158-54-68 17:57:00Clumped (12/05/17 12:57 PM)[facility] QbdcneiHSDTCGSWUZ5006-08-45 17:57:00 Test Item Value Reference Range Interpretation Comments INR (test code = INR) 1.05 1 0.85-1.17 [facility] JznhhafKZGDHREOFC3216-55-15 17:57:00 Test Item Value Reference Range Interpretation Comments PT (test code = PT) 13.7 s 12.0-14.7 [facility] HpytlwwYEFGZJZCMF4125-81-74 17:57:008.2[facility] HermannHEMATOLOGY 2017-12-05 17:57:004.64[facility] QoxyjszFSLJSXSZXO9131-61-42 17:57:0034.1[facility] WfzuqhyVFBHUVARTC0892-72-86 17:57:0014.5[facility] VtmzeqnHWJURLODKO4139-90-29 17:57:0014.4[facility] CrxxkhtFHXWOWATWX3108-07-28 17:57:0042.2[facility] UJQQOSZWVC5052-49-58 17:57:0090.9[facility] YsrgeszUBNTFHBVNO4333-32-56 17:57:00 Test Item Value Reference Range Interpretation Comments MCH (test code = MCH) 31.0 pg 27.0-31.0 [facility] XmaisgiYCAPITVJHT9616-94-36 17:57:0032[facility] HermannHEMATOLOGY 2017-12-05 17:57:008.1[facility] HermannTUMOR STGGZBG6912-09-97 17:57:007.0 [facility] HermannCHEM CNJTZ1784-45-50 16:18:0041[facility] HermannCHEM PANEL 2017-10-22 16:18:001.0[facility] HermannCHEM VACCC3610-33-96 16:18:0023[facility] HermannCHEM GLEZY3124-51-22 16:18:44172Rmevgcip HermannCHEM UIIJR6273-23-82 16:18:0025[facility] HermannCHEM ZQFBD9309-26-88 16:18:002.9[facility] HermannCHEM JQQLD0576-99-95 16:18:007.0[facility]annCHEM NGRDN1851-65-43 16:18:0028 [facility]CHE[facility] THTGC9114-72-94 16:18:003.7[facility]annCHEM PANEL 2017-10-22 16:18:91868Saxnmqzx HermannCHEM MGHJE0557-64-25 16:18:66082Fujwtett HermannCHEM DUKNZ9562-32-80 16:18:008.3[facility]annCHEM SIVGH2117-59-96 16:18:001.74[facility]annCHEM FCPEX4745-15-58 16:18:0031[facility]annCHEM YQUYI9247-47-68 16:18:98293Dcyzrfty HermannCHEM DGYJL7194-30-88 16:18:004.1 [facility]CHE[facility] GHEKG7903-42-22 16:18:008.7[facility]annCHEM PANEL 2017-10-22 16:18:00 Test Item Value Reference Range Interpretation Comments B/C Ratio (test code = B/C Ratio) 18 1 6-25 [facility] QYDLD3797-52-89 16:18:00 Test Item Value Reference Range Interpretation Comments A/G Ratio (test code = A/G Ratio) 0.7 1 0.7-1.6 [facility] JmunlldJOLFNDWWMU9185-88-25 16:18:00 Test Item Value Reference Range Interpretation Comments INR (test code = INR) 1.09 1 0.85-1.17 [facility] LbfsystNBPCMWHMES6780-29-21 16:18:00 Test Item Value Reference Range Interpretation Comments PTT (test code = PTT) 28.6 s 22.9-35.8 [facility] CgidzhvFHJIEOFIQR2873-94-20 16:18:00 Test Item Value Reference Range Interpretation Comments PT (test code = PT) 14.1 s 12.0-14.7 [facility] NgxatfvJCRBUQNWRN5031-91-61 16:18:002.2[facility]annHEMATOLOGY 2017-10-22 16:18:0021.4[facility] YkcccamEVGIPLLJUR6672-31-05 16:18:0012.7[facility] FhwwdaoEDPIJCEYSR4925-76-04 16:18:0063.0[facility] LceqtqsKEHHMHJOFV2242-42-15 16:18:000.9[facility] QzueqdlJSAKHTUJKU9233-25-82 16:18:000.2[facility] ARYWKIRLUO4599-44-62 16:18:001.5[facility] LxxgvofXAMGSXKPTS1945-67-65 16:18:000.7 [facility] XwpunwxFLUPXTAIPU4071-67-38 16:18:004.4[facility]annHEMATOLOGY 2017-10-22 16:18:00 Test Item Value Reference Range Interpretation Comments MCH (test code = MCH) 30.5 pg 27.0-31.0 [facility] HqbfpwqHSUJXINACT9625-87-73 16:18:0038.0[facility]annHEMATOLOGY 2017-10-22 16:18:0090.2[facility] DxonyyiYKSCICSULX3484-95-67 16:18:0012.8[facility] XawuiqwJTQZGGANBP1556-87-22 16:18:004.21[facility] IczpqgtPDZWPRLYHY0415-10-79 16:18:007.8[facility] WticxddUULUHOCCKD7724-38-47 16:18:0033.8[facility] PTRWHRFCWB5767-10-40 16:18:0071[facility] IfzxtxdHXMIEUCCSG6197-01-02 16:18:0014.2 [facility] ZgsikorXFLRXABHMA6460-14-31 16:18:007.1[facility]annHEMATOLOGY 2016-06-18 19:39:00xxxxxxx (06/18/16 1:39 PM)[facility] OzxcgpdYXPXMQIBZK2109-48-62 19:39:007.3[facility] KhoeiqzZSLUKKNIXR3272-51-26 19:39:0012.7[facility] SUXHWPIHOV5849-64-97 19:39:004.06[facility] YpizyovEEZUPZUCKH8613-27-40 19:39:00 38.1[facility] CpfpwcyDOWOZABSKG9164-94-79 19:39:0033.4[facility]annHEMATOLOGY 2016-06-18 19:39:0093.9[facility] VqoygpmUEBPSIYOVH8263-60-43 19:39:00 Test Item Value Reference Range Interpretation Comments MCH (test code = MCH) 31.4 pg 27.0-31.0 [facility] MuatphbFZNRUMSOCN6605-89-60 19:39:0013.8[facility] HermannIMMUNOLOGY 2016-06-18 19:39:505781Stwifnhf HermannMOLECULAR YCKUVOIGKB6436-67-42 19:39:00 <15[facility] HermannMOLECULAR PQBQNGLHJG8393-87-95 19:39:00<1.2[facility] HermannTUMOR RVDVKJP5301-09-95 19:39:005.9[facility] HermannANEMIA YREWF7336-34-99 19:39:0052.1[facility] HermannANEMIA PKJQZ0564-56-88 19:39:24297Vaasscld Lanse ANEMIA KDXWD9783-41-55 19:39:08805Aftbpkht HermannANEMIA NUHPU2694-07-79 19:39:0031[facility] HermannANEMIA BSJYS0242-78-94 19:39:40491Wlwgllso Melvin ANEMIA SZRLR7045-86-55 19:39:44982Keingdgj HermannCHEM FNEFK6808-11-65 19:39:00 34[facility]annCHEM WJDAO9760-35-30 19:39:002.03[facility]annCHEM PANEL 2016-06-18 19:39:003.8[facility]annCHEM XDQHP3611-87-05 19:39:25995Phzdoino HermannCHEM IRJGG8510-05-46 19:39:96704Kvenokzi HermannCHEM LNHUR1983-58-39 19:39:0029[facility]annCHEM HVIVD5968-45-58 19:39:009.2[facility]annCHEM WZZVV2255-45-82 19:39:47862Fccmraqm HermannCHEM RRGAI5679-96-00 19:39:0043 [facility]annCHE[facility] PLUHI9167-13-75 19:39:0011.8[facility]annCHEM PANEL 2016-06-18 19:39:004.4[facility]annCHEM TQMOH4969-81-09 19:39:000.7[facility]annCHEM IAWUQ9074-74-57 19:39:000.8[facility]annCHEM SGYUN4906-12-06 19:39:001.0[facility]annCHEM ICSOM5108-73-87 19:39:000.3[facility]annCHEM TSXGO7901-73-72 19:39:0031[facility]annCHEM FFEAB7033-26-37 19:39:63864 [facility]annCHE[facility] ESRYD0783-23-58 19:39:0038[facility]annCHEM PANEL 2016-06-18 19:39:007.7[facility] HermannCHEM LVULA6437-44-70 19:39:003.3[facility] OqvgklzAWMNMEYJXI8204-60-47 19:39:002.4[facility] ZwjdlgwDXWJANSGCC7349-56-92 19:39:000.9[facility] MgfbfwjYBIFXCKSKO3152-65-99 19:39:001.9[facility] QGBARMIHZE2441-85-78 19:39:004.3[facility] PwfaocyCRRIFWNBHZ4949-73-17 19:39:00 59.3[facility] BgmnxnlIBXUDESJFC9419-17-20 19:39:0025.7[facility] HermannHEMATOLOGY 2016-06-18 19:39:0011.9[facility] GzglutfCYKQLZUBVK8584-91-96 19:39:000.7[facility] RafmsdaZWUVIKINRS0343-91-80 19:39:000.2[facility] LlburusSKHOVNJKOV8011-56-49 19:39:00Clumped (06/18/16 1:39 PM)[facility] AfwxbifUVBOYSSABV7517-59-17 19:39:00 Normal (06/18/16 1:39 PM)[facility] EjleducMZMTJKXWRM7746-16-47 19:39:00 Test Item Value Reference Range Interpretation Comments PT (test code = PT) 14.2 s 12.0-14.7 [facility] TolsoxqYEKAPGBVBL1342-64-48 19:39:001.08[facility] HermannHEMATOLOGY 2016-06-18 19:39:00See Note 1(06/18/16 1:39 PM)[facility] HermannBLOOD BANK RESULTS 2016-02-08 02:30:00Negative (02/07/16 9:30 PM)[facility]annCHEM PANEL 2016-02-08 02:30:000.8[facility]annCHEM VWAFB8088-35-86 02:30:004.2[facility] HermannCHEM YVOMT7662-61-16 02:30:0014[facility]annCHEM SLIOK3925-70-03 02:30:0014.7[facility]annCHEM AVDAS5223-77-54 02:30:007.5[facility]annCHEM SBCCP2626-14-39 02:30:0040[facility]annCHEM RKTXA6065-59-36 02:30:37206 [facility]annCHE[facility] ELRCU7829-24-58 02:30:003.3[facility] HermannCHEM PANEL 2016-02-08 02:30:0048[facility] HermannCHEM ZZJXK7952-29-72 02:30:000.5[facility]annCHEM WSMIN9504-24-50 02:30:0035[facility] HermannCHEM SFAMU4175-38-87 02:30:0028[facility]annCHEM RUOYV3282-85-11 02:30:009.0[facility] HermannCHEM LCPLU2570-00-85 02:30:0021[facility]annCHEM HGZID7772-54-49 02:30:52371 [facility]annCHEM MNPVK6465-71-94 02:30:004.7[facility]annCHEM PANEL 2016-02-08 02:30:12348Ezzzbjsg HermannCHEM SKTXW6236-62-69 02:30:001.97[facility]annCHEM ELYUC2058-56-85 02:30:63102Ppvlncsa JfhuuneBHKAYRCTJH2461-34-20 02:30:00 Test Item Value Reference Range Interpretation Comments PTT (test code = PTT) 25.5 s 22.9-35.8 [facility] AjqafsdWKWRMZQVGW8334-28-51 02:30:009.2[facility] HermannHEMATOLOGY 2016-02-08 02:30:003.82[facility] KpmcxwuXYUPOUYFLS9124-67-72 02:30:0011.6[facility] FojyhcqQDMSRHYUSI5704-40-81 02:30:0035.2[facility] RtcmcjmFYLKGMNRES4907-61-88 02:30:0092.1[facility] KfwjpzoXWQHGDKLNO8324-05-18 02:30:00 Test Item Value Reference Range Interpretation Comments MCH (test code = MCH) 30.4 pg 27.0-31.0 [facility] SgahkkrQMUEMYKBNC5120-11-50 02:30:0013.9[facility] HermannHEMATOLOGY 2016-02-08 02:30:0033.0[facility] TbbpkmbPSZIAJTXFK3970-33-21 02:30:00 Test Item Value Reference Range Interpretation Comments PT (test code = PT) 14.7 s 12.0-14.7 [facility] HefpxdsUOAJOUPAUZ1651-18-34 02:30:001.13[facility]annHEMATOLOGY 2016-02-08 02:30:000.1[facility] XeeqibhFUBRQMVCFN0407-23-05 02:30:000.1[facility] CzofixgRBGIQQBVJV9734-63-15 02:30:000.6[facility] SrguooaYETHYITYJV5777-05-42 02:30:001.3[facility] OxszqtzXZZDGNJQVF0323-11-77 02:30:007.2[facility] TBQBCVRFKS0889-62-77 02:30:006.2[facility] YxllnbpQAHBQHKMIE4444-28-94 02:30:001.2 [facility] PytzzhdFDKRDSHLDD7156-33-06 02:30:0013.8[facility] HermannHEMATOLOGY 2016-02-08 02:30:000.9[facility] TbaaiqfYOQDWQIJLE4058-24-86 02:30:0077.9[facility] MdjzzpwGMUZZBTBKJ4982-54-64 02:30:00Normal (02/07/16 9:30 PM)[facility] HJMQHHKGKR2177-40-79 02:30:00Clumped (02/07/16 9:30 PM)[facility]annHEMATOLOGY 2016-01-28 13:35:90743Nfqhbtlm ZyzcamrRBGWDGCVBGZC8137-24-56 09:26:009.0[facility] HlodhtiDHJAHCNAXWPR4612-09-55 09:26:0052[facility] QlokjocXVPBALULVPZA8543-95-85 09:26:004.0[facility] XfjnbthDMJICJTFVDJA6430-47-78 09:26:77406Ayfldoxs [facility] UOSZJOVICDJX1392-74-19 09:26:001.43[facility] LpnnaulDFFNUPVJJNVT8607-02-31 09:26:0025[facility] NfhowpaFCYVUOPENDWD1030-64-92 09:26:68577Yxyukttx [facility] OUFUSVGISYES3237-79-04 09:26:0033[facility] JhsdzbzVKFTRTIWPDIZ4222-35-60 09:26:00 106[facility] OqskehqJSLETUUOAVID6146-61-57 09:26:008.9[facility]annHEMATOLOGY 2016-01-28 09:26:000.1[facility] FsxehyyVSGEIESFHN1220-39-34 09:26:0017.9[facility] EuriscxHQVTAWJQBU1438-87-81 09:26:0067.0[facility] WpdiabvSQHKAHIVOI8751-62-52 09:26:003.3[facility] XvbdysgPEFCIQQYWK9895-92-16 09:26:0011.0[facility] BBMEERXGNL2685-08-13 09:26:00Clumped (01/28/16 4:26 AM)[facility]annHEMATOLOGY 2016-01-28 09:26:000.9[facility] ZjtituuOBNVPDDSXK9257-46-76 09:26:000.3[facility] ScqybzlFLINBLNJDC9013-28-85 09:26:001.5[facility] VrlyzbiFEJUNKIZRI2385-58-44 09:26:005.5[facility] OwsquatSFCZPKFNCP1205-12-11 09:26:000.8[facility] KGXMIYHFER1989-92-74 09:26:00Normal (01/28/16 4:26 AM)[facility]annHEMATOLOGY 2016-01-28 09:26:007.9[facility] JprzzsnGVVHQQKFQI7237-88-38 09:26:00See Note 1(01/28/16 4:26 AM)[facility] HjxwxbpVXNTTNCDUW4834-67-19 09:26:0013.5[facility] HbxvagvKUDZRIQJBA8631-23-36 09:26:0034.4[facility] SuddwidVBFDEQDHUC7520-93-03 09:26:0033.7[facility] BvucfvnAISTICMLKC5356-23-36 09:26:0011.6[facility] XWMEAESDVL4288-83-41 09:26:00 Test Item Value Reference Range Interpretation Comments MCH (test code = MCH) 31.4 pg 27.0-31.0 [facility] VveopuuZCKAIFIULJ6865-78-30 09:26:0091.1[facility]annHEMATOLOGY 2016-01-28 09:26:008.2[facility] PjcjwicGQBGPMVYFO5686-28-33 09:26:003.70[facility] HermannCHEM IPYYI7219-04-85 09:24:008.7[facility]annCHEM IQBBT7635-72-42 09:24:43445Bhyynxrv HermannCHEM PQYHU0435-83-77 09:24:0028[facility]annCHEM UNSYL9368-68-11 09:24:0056[facility]annCHEM REAAA5134-99-85 09:24:0027 [facility]annCHEM MZGII0641-63-03 09:24:001.34[facility]annCHEM PANEL 2016-01-27 09:24:46132Fhgqmxua HermannCHEM WDRRR9335-80-84 09:24:003.9[facility]annCHEM QMTDK1742-21-18 09:24:87134Xqvzhspg HermannCHEM PXESD4220-29-24 09:24:0010.9[facility] JrfbpiiLRNABGQOGS3773-08-59 09:24:000.1[facility] YYQLJSBXKU9531-46-20 09:24:000.3[facility] BbsdeznJVLKRGRFFV0796-63-96 09:24:00 65.8[facility] TkuuhvgZVINHNWFFR7219-84-93 09:24:003.8[facility] HermannHEMATOLOGY 2016-01-27 09:24:0011.5[facility] AqpxonwVRAVAXKBCF3489-74-11 09:24:0017.7[facility] BbnyfrmXNTSHLRDAS0791-74-13 09:24:001.4[facility] KbrhzszVAKFSSNAHR4164-91-04 09:24:000.9[facility] XqxnzswFOKWEGGPJM0601-47-40 09:24:005.3[facility] MLTWCBGTMO2926-13-04 09:24:001.2[facility] IswzdplHSDECIZLVV1903-56-88 09:24:00 3.74[facility] QynwursJCLJDOGGUT5356-08-26 09:24:008.0[facility] HermannHEMATOLOGY 2016-01-27 09:24:0091.4[facility] EmatikpSZLTOGMWBW4944-91-45 09:24:0013.4[facility] NarmcadHIDBLBZPJG8426-87-91 09:24:0033.7[facility] SjtugdvSGMJXAVZCH4408-18-87 09:24:00 Test Item Value Reference Range Interpretation Comments MCH (test code = MCH) 30.8 pg 27.0-31.0 [facility] GwhwywoLPAJBIINPX0674-62-61 09:24:0034.1[facility] HermannHEMATOLOGY 2016-01-27 09:24:008.4[facility] HllrbofXHAACEUWIH6180-18-06 09:24:0072[facility] WnzcwoaECGZEZFOLU7473-19-62 09:24:0011.5[facility] HermannCHEM MKSHP8386-51-64 09:19:0054[facility]annCHEM DUKOX7774-10-72 09:19:0026[facility]annCHEM CEGIQ4570-33-15 09:19:46953Uecthsoa HermannCHEM YLMXR6359-55-32 09:19:0011.6 [facility]annCHE[facility] GDXXI4323-51-22 09:19:007.9[facility] HermannCHEM PANEL 2016-01-26 09:19:001.39[facility] HermannCHEM FXYCF3987-64-57 09:19:0033[facility]annCHEM OTZCK6182-45-31 09:19:51901Zucgyaaz HermannCHEM XYDZN7373-24-42 09:19:003.6[facility]annCHEM REZBR5176-19-99 09:19:55058Yswyngab [facility] MNVILOWQYE8111-30-77 09:19:00Clumped (01/26/16 4:19 AM)[facility]annHEMATOLOGY 2016-01-26 09:19:000.3[facility] UzjbntlXYLPIWYXYC0873-64-44 09:19:004.9[facility] JlmflprQODHPMZNJV4416-51-60 09:19:000.1[facility] TwyqvzbYTLHORSQZI6845-50-65 09:19:000.8[facility] AzjivfcKJQKBLFTOV5127-34-77 09:19:001.1[facility] VQDQPJIRQJ0245-19-60 09:19:000.9[facility] PveaygjDWYDIYZIJJ6518-29-40 09:19:003.8 [facility] McpqucmLNMDDTZEUA9169-76-55 09:19:0010.9[facility] HermannHEMATOLOGY 2016-01-26 09:19:0015.1[facility] TozeyydYKXBMTBHUI0409-90-12 09:19:0069.3[facility] HncuvuvRKULKGLYAB0118-63-60 09:19:0045[facility] YjhgsbxRJDZHHKRKH7456-11-07 09:19:0013.4[facility] PuagbphETJJYRTSFQ0757-97-74 09:19:009.1[facility] EBKNUYKEHI4073-34-20 09:19:00 Test Item Value Reference Range Interpretation Comments MCH (test code = MCH) 31.3 pg 27.0-31.0 [facility] JxiwxfsMYNTRIGBCT9250-62-05 09:19:0034.1[facility] HermannHEMATOLOGY 2016-01-26 09:19:0091.7[facility] XplkxkdHFLPJVTBCO2876-45-36 09:19:0010.3[facility] SnklyglLQITJQSFYT2935-36-54 09:19:007.1[facility] SgpeamtZQMBLETVNW4451-88-97 09:19:0030.1[facility] CbwjlhjWIBFBUNQRX5655-84-78 09:19:003.28[facility] CHEM ZKVHI0887-28-05 10:20:002.1[facility] HermannBODY EPQJFM0736-30-33 16:35:00 Pleural *NA*(01/23/16 11:35 AM)[facility]annBODY GQMJAG8838-78-23 16:35:001.6 [facility] RYIRGR9558-95-98 16:35:00[place] *NA*(01/23/16 11:35 AM) [facility] YCOBFV2921-19-32 16:35:001.6[facility]annBODY FLUIDS 2016-01-23 16:35:00Light Yellow (01/23/16 11:35 AM)[facility]annBODY FLUIDS 2016-01-23 16:35:00Slight Cloudy (01/23/16 11:35 AM)[facility]annB[facility] FLUIDS 2016-01-23 16:35:00Pleural (01/23/16 11:35 AM)[facility]annB[facility] FLUIDS 2016-01-23 16:35:78718Nptycvsj HermannBODY RESVIQ4977-35-57 16:35:28273Jmtqisnr HermannBODY ZMULJK5189-12-71 16:35:00Occasional (01/23/16 11:35 AM)[facility] RERWUA4134-72-66 16:35:0010[facility]annB[facility] GRDMFG4991-99-42 16:35:0082[facility]annBODY ZSLDOH3991-58-23 16:35:008[facility]annB[facility] NXEEGA6040-92-03 16:35:00Ascites *NA*(01/23/16 11:35 AM)[facility] FFWEGA9855-41-35 16:35:000.8[facility]annB[facility] BJHTBN0466-87-20 16:35:58419 [facility] FEPRTO7071-70-97 16:35:00Pleural (01/23/16 11:35 AM)[facility] UPXFJY0606-96-86 16:35:00Pleural *NA*(01/23/16 11:35 AM)[facility]annB[facility] UXHBIZ0276-77-37 16:35:0086[facility]annBODY HJJXSH1154-18-11 16:35:00Pleural *NA*(01/23/16 11:35 AM)[facility]annB[facility] XKBZWI3586-56-05 16:35:000.7[facility]annBODY UOKCSD1978-17-29 16:35:00Pleural *NA*(01/23/16 11:35 AM)[facility]annB[facility] JCDODH1420-17-38 16:35:009[facility]annB[facility] WJZFYU4916-36-39 16:35:0061[facility]annB[facility] SSUHAM6098-60-55 16:35:00 Occasional (01/23/16 11:35 AM)[facility] XFUTFS1335-03-15 16:35:0025 [facility] JMHWEX1245-85-01 16:35:0014[facility]annBODY FLUIDS 2016-01-23 16:35:00Ascites (01/23/16 11:35 AM)[facility]annBODY FLUIDS 2016-01-23 16:35:58707Ksyshddi HermannBODY ELIOSN0606-45-57 16:35:00Slight Cloudy (01/23/16 11:35 AM)[facility]annBODY FWNODJ5385-10-23 16:35:00Light Yellow (01/23/16 11:35 AM)[facility]annBODY EOQTPA7417-40-32 16:35:17316 [facility] HermannANEMIA HRATY6497-68-22 15:26:0019[facility] HermannANEMIA STUDY 2016-01-23 15:26:44056Lanteggn HermannANEMIA OZWMW5857-26-79 15:26:76894Downiibe HermannANEMIA ZASGB6431-51-97 15:26:0050[facility] HermannANEMIA XLWGN0083-10-04 15:26:88566Dzdsjaim AbmmsehEMKWCDEHZK9910-62-60 15:26:00Negative *NA*(01/23/16 10:26 AM)[facility] OycqtdcEODTORMULV0740-65-09 15:26:00Negative *NA*(01/23/16 10:26 AM)[facility] YpicmluJZDHOCOMYD0405-76-37 15:26:0030[facility] UJNHCQQAOL4267-87-87 15:26:00Negative (01/23/16 10:26 AM)[facility] DQRSLNIKOH8094-27-29 15:26:00Positive *ABN*(01/23/16 10:26 AM)[facility] NQUJBHLGGK0366-49-76 15:26:86587Oyghodkp SgvromaNVYLLUNKXT9578-48-00 15:26:00 1:40 *ABN*(01/23/16 10:26 AM)[facility] VedbtohATYDPACYOG4566-75-52 15:26:00 Negative (01/23/16 10:26 AM)[facility] WmyvcnzLBZTBCOHAZ4027-56-64 15:26:0011.2 [facility] TplxuniMQOHSWBZTV7055-49-59 15:26:00Negative *NA*(01/23/16 10:26 AM) [facility] HermannMOLECULAR GTSZBWIGWE7886-95-65 15:26:005.3[facility] MOLECULAR FXPSQVHSKH8842-39-18 15:26:08328900Rvafoltg HermannTUMOR MARKERS 2016-01-23 15:26:003.3[facility] IelmlsuFWOFAWXVYQ6224-50-38 13:19:00 Test Item Value Reference Range Interpretation Comments aPTT (test code = aPTT) 32.2 s 22.9-35.8 [facility] MeocsbhTWMFFNHNQT6615-68-19 13:19:001.15[facility] HermannHEMATOLOGY 2016-01-23 13:19:00 Test Item Value Reference Range Interpretation Comments PROTIME (test code = PROTIME) 15.0 s 12.0-14.7 [facility]annCHEM AZDIR3093-23-34 13:00:002.7[facility] HermannCHEM PANEL 2016-01-23 13:00:74293Vismnadx HermannCHEM CNXNZ6330-63-93 13:00:000.2[facility] HermannCHEM YINDX5079-65-66 13:00:0030[facility]annCHEM RJIOH6678-33-33 13:00:004.6[facility]annCHEM AKQZK1409-78-77 13:00:000.6[facility]annCHEM GKIOQ6761-89-33 13:00:000.7[facility] HermannCHEM DOLJV9662-85-64 13:00:007.3 [facility]annCHEM JCOET6593-33-81 13:00:0050[facility]annCHEM PANEL 2016-01-23 13:00:000.5[facility] HermannCHEM GQOIJ3122-43-76 13:00:59967Coynhazs HermannCHEM EIWAV4511-41-60 08:26:001.9[facility] TvxfqxpYHXZXHXEFR5606-07-55 09:33:00 Test Item Value Reference Range Interpretation Comments aPTT (test code = aPTT) 33.7 s 22.9-35.8 [facility]annCHEM NQBKV4470-80-21 08:25:0050[facility]annCHEM PANEL 2016-01-22 08:25:000.5[facility]annCHEM GQYYA9935-59-59 08:25:005.1[facility]annCHEM ZIWPV2318-17-11 08:25:0012[facility]annCHEM ORJFC6653-36-97 08:25:35238Vcipuayi HermannCHEM XNQRB7902-29-23 08:25:001.1[facility]annCHEM YQARV4047-52-65 08:25:007.9[facility]annCHEM TKZPT9118-19-27 08:25:002.8 [facility]annCHEM JJYIA7453-37-12 08:25:0033[facility]annCHEM PANEL 2016-01-22 08:25:000.4[facility] HermannCHEM BCMLV4304-39-72 08:25:002.1[facility] QadovntPSKOXY1621-73-51 08:25:0047[facility] BmedydaUZKRSO1138-92-74 08:25:0058 [facility] YrfmkiiPEYQZU7629-69-56 08:25:0017[facility] CafkirhFGOFWK6467-90-69 08:25:62822Ciqiuojq HsxgudoMCJYLV8538-16-84 08:25:0083[facility] HermannLIPIDS 2016-01-22 08:25:002.60[facility] HermannSPECIAL KGKQPFJQO5637-04-74 08:25:005.5 [facility] BuzqimhSYLGVLQPGA8804-10-19 03:32:61999Emgkypsq HermannBACTERIAL - QKOLUQLO2084-17-96 02:17:00Positive 1*ABN*(01/21/16 9:17 PM)[facility] CARDIAC WRZOSVK4228-97-43 01:50:22750Yeikpnvq HermannCARDIAC AEAUBBV1708-10-98 01:50:000.02[facility] HermannCARDIAC TEMQOVU6681-59-18 01:50:003.4[facility] HermannCARDIAC FUOCFHQ0630-02-58 01:50:004.6[facility] KxvkhpjORDEMRDFRD7009-42-12 01:50:00Clumped (01/21/16 8:50 PM)[facility] RrolaedEDMQEJMOYQ4263-36-24 01:50:00 Normal (01/21/16 8:50 PM)[facility] HermannCARDIAC IJRLJRB6687-09-10 21:22:72456 [facility] HermannCARDIAC YBUBYMN7724-90-49 21:22:73007Snnausay HermannCARDIAC UHHDVYU7277-97-97 21:22:000.02[facility] HermannCARDIAC FVNESEM4806-48-02 21:22:00 4.2[facility] HermannCARDIAC HWCLFGU2713-82-15 21:22:003.3[facility]
--- NOTE | 2020-12-22 01:49 | ER ---
Nurse's Notes [facility] Name: Reji Ford Jr Age: 70 yrs Sex: Male : 1950 Arrival Date: 12/22/2020 Time: 01:13 Bed DIS11 Private MD: Diagnosis: Alcohol use, unspecified with intoxication Presentation: 12/22 01:40 Chief complaint: EMS states: called out for high BGL, pt was intoxicated and PD em notified, BGL 340s on scene, no complaints at this time. 01:40 Coronavirus screen: Client denies travel out of the [place] in the last 14 days. Ebola em Screen: Patient negative for fever greater than or equal to 101.5 degrees Fahrenheit, and additional compatible Ebola Virus Disease symptoms Patient denies exposure to infectious person. Patient denies travel to an Ebola-affected area in the 21 days before illness onset. No symptoms or risks identified at this time. Initial Sepsis Screen: Does the patient meet any 2 criteria? No. Patient's initial sepsis screen is negative. Does the patient have a suspected source of infection? No. Patient's initial sepsis screen is negative. Risk Assessment: Do you want to hurt yourself or someone else? Patient reports no desire to harm self or others. Onset of symptoms was December 22, 2020. 01:40 Method Of Arrival: EMS: Mobile EMS em 01:40 Acuity: CHEMA 3 em Triage Assessment: 01:47 General: Appears in no apparent distress. comfortable, Behavior is calm, cooperative, em appropriate for age. Pain: Complains of pain in back. Neuro: Level of Consciousness is awake, alert, obeys commands, Oriented to person, place, time, situation. Cardiovascular: Capillary refill < 3 seconds Patient's skin is warm and dry. Respiratory: Airway is patent Respiratory effort is even, unlabored, Respiratory pattern is regular, symmetrical. Derm: Skin is intact, is fragile, is thin, Skin is pink, warm \T\ dry. Musculoskeletal: Capillary refill < 3 seconds, Range of motion: intact in all extremities. Historical: - Allergies: 01:46 crab meat; em - PMHx: 01:46 Hypertension; under eval for CHF; Hepatitis; cancer; Diabetes mellitus; em - PSHx: 01:46 None; em - Immunization history:: Client reports receiving the 2nd dose of the Covid vaccine. - Social history:: Smoking status: Patient reports the use of cigarette tobacco products, cigars. Screenin:35 Abuse screen: Denies threats or abuse. Nutritional screening: No deficits noted. em Tuberculosis screening: No symptoms or risk factors identified. Fall Risk None identified. Vital Signs: 01:40 BP 156 / 74; Pulse 71; Resp 16; Temp 97.8; Pulse Ox 96% on R/A; Weight 110.22 kg; em Height 6 ft. 0 in. (182.88 cm); 01:40 Body Mass Index 32.96 (110.22 kg, 182.88 cm) em ED Course: 01:13 Patient arrived in ED. em 01:16 Marilia Pink is Attending Physician. sp3 01:34 Danilo Pierre, RN is Primary Nurse. em 01:35 Patient has correct armband on for positive identification. em 01:35 No provider procedures requiring assistance completed. Patient did not have IV access em during this emergency room visit. 01:46 Triage completed. em 01:46 Arm band placed on. em Administered Medications: No medications were administered Outcome: 01:30 Discharge ordered by MD. sp3 01:48 Discharged to home via wheelchair. em 01:48 Condition: stable 01:48 Discharge instructions given to patient, Instructed on discharge instructions, follow up and referral plans. Demonstrated understanding of instructions, follow-up care. 01:48 Patient left the ED. em Signatures: Danilo Pierre, RN RN em Marilia Pink sp3
[2020-12-22 02:02] VITALS: BP 156/74; TEMP 97.8; O2SAT 96
== END 2020-12-22 01:48 | disposition home or self-care (01) ==
LOC: ER 01:08
DX: F10.929 Alcohol use, unspecified with intoxication, unspecified (principal); I10 Essential (primary) hypertension; F17.290 Nicotine dependence, other tobacco product, uncomplicated; Z91.013 Allergy to seafood
CPT/HCPCS: 99283